=== PATIENT | female | born 1940 | race African-American/Black ===

== ENCOUNTER → 2020-06-25 | Outpatient (CLI) | payer MEDICARE ==
[2020-06-25 08:27] LABS: Basophils # (auto) 0 10 ^3/uL (0-0.2); Basophils % (auto) 1.1 % (0.0-2.0); Eosinophils # (auto) 0.1 10 ^3/uL (0-0.8); Eosinophils % (auto) 3.5 % (0.0-7.0); Hematocrit 36.9 % (36.0-46.0); Hemoglobin 12.6 g/dL (12.2-16.2); Lymphocytes # (auto) 1.2 10 ^3/uL (0.4-5.4); Lymphocytes % (auto) 32.6 % (10.0-50.0); Mean Corpuscular Hgb Conc. 34.2 g/dL (32.0-36.0); Mean Corpuscular Volume 84.8 fL (80.0-100.0); Monocytes # (auto) 0.2 10 ^3/uL (0-1.3); Monocytes % (auto) 6.3 % (0.0-12.0); Neutrophils # (auto) 2.1 10 ^3/uL (1.6-8.6); Neutrophils % (auto) 56.5 % (37.0-80.0); Nucleated Red Blood Cells % 0.2 %; Platelet Count (auto) 317 10^3/uL (140-450); Red Blood Cells 4.35 10^6/uL (4.0-5.20); Red Cell Distribution Width 13.9 % (11.8-14.3); White Blood Cell 3.8 10^3/uL (4.4-10.8)
[2020-06-25 08:34] LABS: Urine Bacteria MOD /hpf (None Seen); Urine Blood Negative /uL (Negative); Urine Hyaline Cast MOD /lpf (0 - 2); Urine WBC 135 /hpf (0 - 5); Urine WBC Clumps PRESENT /hpf (None Seen)
[2020-06-25 09:34] LABS: Potassium 4.2 mmol/L (3.5-5.1)
[2020-06-25 09:48] LABS: Albumin 2.9 g/dL (3.4-5.0); BUN/Creatinine Ratio 15.8; Bilirubin, Total 0.6 mg/dL (0.2-1.0); Calcium 8.8 mg/dL (8.5-10.1); Total Protein 7.4 g/dL (6.4-8.2)
[2020-06-25 09:56] LABS: Free T4 (Free Thyroxine) 0.94 ng/dL (0.89-1.76)
== END | disposition home or self-care (01) ==
LOC: LAB 07:57
PROVIDERS: ATTEND Internal Medicine
DX: E11.9 Type 2 diabetes mellitus without complications (principal); I10 Essential (primary) hypertension
CPT/HCPCS: 36415; 80053; 80061; 81001; 82043; 82607; 83036; 84439; 84443; 85025; 85652

== ENCOUNTER → 2020-07-14 | Outpatient (CLI) | payer MEDICARE ==
[2020-07-14 12:06] LABS: Urine Bacteria MANY /hpf (None Seen); Urine Blood Negative /uL (Negative); Urine Mucus FEW (None Seen); Urine Specific Gravity 1.022 (1.001-1.035); Urine WBC 259 /hpf (0 - 5)
== END | disposition home or self-care (01) ==
LOC: LAB 11:34
PROVIDERS: ATTEND Internal Medicine
DX: E11.9 Type 2 diabetes mellitus without complications (principal); N39.41 Urge incontinence
CPT/HCPCS: 81001

== ENCOUNTER → 2021-05-30 | Outpatient (CLI) | payer MEDICARE ==
[2021-05-30 09:02] LABS: Basophils # (auto) 0 10 ^3/uL (0-0.2); Basophils % (auto) 0.4 % (0.0-2.0); Eosinophils # (auto) 0.1 10 ^3/uL (0-0.8); Eosinophils % (auto) 1.7 % (0.0-7.0); Hematocrit 36.3 % (36.0-46.0); Lymphocytes # (auto) 0.9 10 ^3/uL (0.4-5.4); Lymphocytes % (auto) 27.2 % (10.0-50.0); Mean Corpuscular Hemoglobin 28.4 pg (28.0-32.0); Monocytes # (auto) 0.3 10 ^3/uL (0-1.3); Monocytes % (auto) 9.1 % (0.0-12.0); Neutrophils # (auto) 2.1 10 ^3/uL (1.6-8.6); Neutrophils % (auto) 61.6 % (37.0-80.0); Red Blood Cells 4.22 10^6/uL (4.0-5.20); Red Cell Distribution Width 14.2 % (11.8-14.3); White Blood Cell 3.3 10^3/uL (4.4-10.8)
[2021-05-30 09:23] LABS: Albumin 3.1 g/dL (3.4-5.0); Calcium 8.5 mg/dL (8.5-10.1); Potassium 4.6 mmol/L (3.5-5.1)
[2021-05-30 09:32] LABS: BUN/Creatinine Ratio 22.1; Bilirubin, Total 0.6 mg/dL (0.2-1.0); Total Protein 6.9 g/dL (6.4-8.2)
== END | disposition home or self-care (01) ==
LOC: LAB 08:23
PROVIDERS: ATTEND Internal Medicine
DX: E11.9 Type 2 diabetes mellitus without complications (principal); D72.819 Decreased white blood cell count, unspecified
CPT/HCPCS: 36415; 80053; 83036; 83615; 85025

== ENCOUNTER → 2021-09-23 | Outpatient (CLI) | payer MEDICARE ==
[2021-09-23 12:30] LABS: Basophils # (auto) 0 10 ^3/uL (0-0.2); Basophils % (auto) 0.7 % (0.0-2.0); Eosinophils # (auto) 0.2 10 ^3/uL (0-0.8); Eosinophils % (auto) 4.2 % (0.0-7.0); Hematocrit 33.7 % (36.0-46.0); Hemoglobin 11.4 g/dL (12.2-16.2); Lymphocytes # (auto) 1.3 10 ^3/uL (0.4-5.4); Lymphocytes % (auto) 34.3 % (10.0-50.0); Mean Corpuscular Hemoglobin 28.6 pg (28.0-32.0); Mean Corpuscular Volume 84.1 fL (80.0-100.0); Monocytes # (auto) 0.3 10 ^3/uL (0-1.3); Monocytes % (auto) 8.3 % (0.0-12.0); Neutrophils % (auto) 52.5 % (37.0-80.0); Nucleated Red Blood Cells % 0.1 %; Red Cell Distribution Width 13.9 % (11.8-14.3); White Blood Cell 3.8 10^3/uL (4.4-10.8)
[2021-09-23 13:09] LABS: Albumin 2.3 g/dL (3.4-5.0); BUN/Creatinine Ratio 13.6; Calcium 8.2 mg/dL (8.5-10.1); Potassium 3.3 mmol/L (3.5-5.1)
[2021-09-23 13:11] LABS: Bilirubin, Total 0.6 mg/dL (0.2-1.0)
[2021-09-23 13:20] LABS: Free T4 (Free Thyroxine) 1.06 ng/dL (0.89-1.76)
== END | disposition home or self-care (01) ==
LOC: LAB 12:04
PROVIDERS: ATTEND Internal Medicine
DX: E11.65 Type 2 diabetes mellitus with hyperglycemia (principal); I10 Essential (primary) hypertension
CPT/HCPCS: 36415; 80053; 80061; 82088; 82384; 82607; 83036; 84439; 84443; 85025; 85652

== ENCOUNTER 2022-04-28 22:40 | Inpatient (IN) | payer MEDICARE ==
[~2022-04-28] VITALS: Ht 162.6 cm; Wt 68.5 kg
[2022-04-29] MEDS ORDERED: ONDANSETRON ODT 4 MG TAB PO ONE (00:30)
[2022-04-29] MEDS ORDERED: HYDROcodone-ACET 5/325MG TAB PO ONE (00:30)
[2022-04-29] MEDS: SODIUM CHLORIDE 0.9% 1,000 ML IV SCH ×2 (00:30→05:04)
[2022-04-29] MEDS ORDERED: InsuLIN REG 1unit/0.01ml Soln (100units/ml) SC ONE (00:30)
[2022-04-29 02:21] LABS: Hemoglobin 10.4 g/dL (12.2-16.2); Mean Corpuscular Hemoglobin 28.3 pg (28.0-32.0); Mean Corpuscular Hgb Conc. 32.4 g/dL (32.0-36.0); Mean Corpuscular Volume 87.3 fL (80.0-100.0); Red Blood Cells 3.67 10^6/uL (4.0-5.20); Red Cell Distribution Width 16.1 % (11.8-14.3)
[2022-04-29 02:38] LABS: Albumin 2.4 g/dL (3.4-5.0); Calcium 8.4 mg/dL (8.5-10.1); Potassium 4.5 mmol/L (3.5-5.1)
[2022-04-29 02:41] LABS: Bilirubin, Total 0.6 mg/dL (0.2-1.0); Total Protein 6.3 g/dL (6.4-8.2)
[2022-04-29 02:53] LABS: Band Neutrophils % (manual) 0; Basophils % (manual) 0 (0.0-2.0); Blast Cells 0; Eosinophils % (manual) 0 (0-7); Metamyelocytes % 0; Myelocytes % 0; Promyelocytes % 0; Reactive Lymphocytes 0
[2022-04-29] MEDS ORDERED: DEXTROSE (50%) 50ML SYRG IV PRN (03:30)
[2022-04-29] MEDS ORDERED: DOCUSATE SOD 100 MG CAP PO PRN (03:30)
[2022-04-29] MEDS ORDERED: cefTRIAXone 1GM/50ML D5W 50 ML IV ONE (03:30)
[2022-04-29] MEDS ORDERED: NITROGLYCERIN 0.4 MG SL TAB SL PRN (03:30)
[2022-04-29] MEDS ORDERED: MORPHINE SULFATE INJ 2 MG/ml SYRG IV PRN (03:30)
[2022-04-29] MEDS ORDERED: ONDANSETRON HCL 4 MG/2 ML VIAL IV PRN (03:30)
[2022-04-29 03:52] LABS: INR 0.97 (0.9-1.15); Partial Thromboplastin Time 28.2 sec (24.6-33.4)
[2022-04-29 05:36] LABS: Lymphocytes % (manual) 70 (10.0-50.0); Monocytes % (manual) 2 (0-12)
[2022-04-29] MEDS: ACCU-CHEK COMFORT CURVE STRIP VI SCH ×3 (06:09→18:39)
[2022-04-29] MEDS: InsuLIN REG 1unit/0.01ml Soln (100units/ml) SC SCH ×3 (06:29→18:45)
[2022-04-29 08:09] LABS: Albumin 2.4 g/dL (3.4-5.0); Calcium 8.5 mg/dL (8.5-10.1); Potassium 4.2 mmol/L (3.5-5.1)
[2022-04-29 08:14] LABS: BUN/Creatinine Ratio 19.5; Bilirubin, Total 0.7 mg/dL (0.2-1.0); Total Protein 6.3 g/dL (6.4-8.2)
[2022-04-29] MEDS: HEPARIN DRIP/D5W 100UNITS/ML 250 ML IV SCH ×2 (09:56→19:17)
[2022-04-29] MEDS: HYDROcodone-ACET 5/325MG TAB PO PRN (10:34)
[2022-04-29] MEDS: FAMOTIDINE (10MG/ML) 2ML VL IV SCH (10:36)
[2022-04-29 11:07] LABS: Hematocrit 31.8 % (36.0-46.0); Hemoglobin 10.3 g/dL (12.2-16.2); Mean Corpuscular Hemoglobin 28.3 pg (28.0-32.0); Mean Corpuscular Hgb Conc. 32.5 g/dL (32.0-36.0); Mean Corpuscular Volume 87.1 fL (80.0-100.0); Red Blood Cells 3.66 10^6/uL (4.0-5.20); Red Cell Distribution Width 16.6 % (11.8-14.3)
[2022-04-29 11:13] LABS: Basophils % (manual) 0 (0.0-2.0); Blast Cells 0; Metamyelocytes % 0; Myelocytes % 0; Promyelocytes % 0; Reactive Lymphocytes 0
[2022-04-29 12:37] LABS: Band Neutrophils % (manual) 1; Eosinophils % (manual) 1 (0-7); Lymphocytes % (manual) 64 (10.0-50.0); Monocytes % (manual) 3 (0-12)
[2022-04-29] MEDS ORDERED: FERR1TAB36 PO (12:48)
[2022-04-29] MEDS ORDERED: ASPI-498 PO (12:58)
[2022-04-29] MEDS ORDERED: AML5T PO (12:58)
[2022-04-29] MEDS ORDERED: EMPA1TAB PO (12:58)
[2022-04-29] MEDS ORDERED: CLON0.2T PO (12:58)
[2022-04-29] MEDS ORDERED: ALLO100T PO (12:58)
[2022-04-29] MEDS ORDERED: ATOR20TA50 PO (12:58)
[2022-04-29] MEDS ORDERED: OMEP20TA PO (12:58)
[2022-04-29] MEDS ORDERED: HYDR25TA87 PO (13:00)
[2022-04-29 18:59] LABS: Partial Thromboplastin Time 34.2 sec (24.6-33.4)
[2022-04-29] MEDS ORDERED: HEPARIN SODIUM (PORCINE) 5000 UNITS/ML 1ML VIAL ONE (19:41)
[2022-04-29] MEDS ORDERED: HEPARIN SODIUM (PORCINE) 5000 UNITS/ML 1ML VIAL IV ONE (19:45)
[2022-04-30] VITALS (8 sets, daily range): BP systolic 110–195; BP diastolic 55–90
[2022-04-30] MEDS: ACCU-CHEK COMFORT CURVE STRIP VI SCH ×4 (00:35→18:23)
[2022-04-30] MEDS: HYDROcodone-ACET 5/325MG TAB PO PRN ×4 (00:50→22:07)
[2022-04-30] MEDS: InsuLIN REG 1unit/0.01ml Soln (100units/ml) SC SCH ×4 (00:54→18:24)
[2022-04-30 02:25] LABS: INR 1.04 (0.9-1.15); Partial Thromboplastin Time 38.2 sec (24.6-33.4)
[2022-04-30 09:39] LABS: Hematocrit 29.2 % (36.0-46.0); Hemoglobin 9.2 g/dL (12.2-16.2); Mean Corpuscular Hemoglobin 27.5 pg (28.0-32.0); Mean Corpuscular Hgb Conc. 31.4 g/dL (32.0-36.0); Mean Corpuscular Volume 87.6 fL (80.0-100.0); Red Blood Cells 3.33 10^6/uL (4.0-5.20); Red Cell Distribution Width 16.2 % (11.8-14.3); White Blood Cell 22.4 10^3/uL (4.4-10.8)
[2022-04-30 09:53] LABS: Band Neutrophils % (manual) 0; Basophils % (manual) 0 (0.0-2.0); Blast Cells 0; Eosinophils % (manual) 0 (0-7); Metamyelocytes % 0; Myelocytes % 0; Potassium 4.9 mmol/L (3.5-5.1); Promyelocytes % 0; Reactive Lymphocytes 0
[2022-04-30 10:00] LABS: Albumin 2.1 g/dL (3.4-5.0); Bilirubin, Total 0.9 mg/dL (0.2-1.0); Calcium 7.9 mg/dL (8.5-10.1); Total Protein 5.2 g/dL (6.4-8.2)
[2022-04-30] MEDS: FAMOTIDINE (10MG/ML) 2ML VL IV SCH (10:04)
[2022-04-30] MEDS: cefTRIAXone 1GM/50ML D5W 50 ML IV SCH (10:04)
[2022-04-30 10:33] LABS: Lymphocytes % (manual) 60 (10.0-50.0); Monocytes % (manual) 3 (0-12)
[2022-04-30 11:09] LABS: INR 1.07 (0.9-1.15)
[2022-04-30 11:13] LABS: Partial Thromboplastin Time 74.9 sec (24.6-33.4)
[2022-04-30] MEDS: SODIUM CHLORIDE 0.9% 1,000 ML IV SCH ×2 (11:43→18:37)
[2022-04-30] MEDS: HEPARIN DRIP/D5W 100UNITS/ML 250 ML IV SCH (11:53)
[2022-04-30] MEDS: INSULIN LANTUS (GLARGINE) 1 /0.01ml (100units/ml) SC SCH (12:16)
[2022-04-30] MEDS ORDERED: VANCOMYCIN PER PHARMACY 0 MG IV SCH (13:15)
[2022-04-30] MEDS: VANCOMYCIN 1GM/250ML 250 ML IV SCH (14:49)
[2022-04-30 18:21] LABS: INR 1.04 (0.9-1.15); Partial Thromboplastin Time 58.4 sec (24.6-33.4)
[2022-05-01] VITALS (8 sets, daily range): BP systolic 119–175; BP diastolic 63–100
[2022-05-01] MEDS: ACCU-CHEK COMFORT CURVE STRIP VI SCH ×5 (00:13→23:31)
[2022-05-01] MEDS: ACETAMINOPHEN 325 MG TAB PO PRN ×2 (00:14→21:38)
[2022-05-01] MEDS: InsuLIN REG 1unit/0.01ml Soln (100units/ml) SC SCH ×5 (00:32→23:31)
[2022-05-01] MEDS ORDERED: amLODIPine BESYLATE 5 MG TAB PO ONE (01:00)
[2022-05-01] MEDS: hydrALAZINE HCL 10 MG TAB PO PRN ×4 (01:37→21:37)
[2022-05-01] MEDS ORDERED: AMLO-496 PO (01:40)
[2022-05-01 01:46] LABS: INR 1.05 (0.9-1.15); Partial Thromboplastin Time 51.8 sec (24.6-33.4)
[2022-05-01] MEDS: VANCOMYCIN 1GM/250ML 250 ML IV SCH ×2 (02:09→14:43)
[2022-05-01] MEDS: SODIUM CHLORIDE 0.9% 1,000 ML IV SCH ×3 (02:46→18:13)
[2022-05-01] MEDS: HYDROcodone-ACET 5/325MG TAB PO PRN ×2 (06:40→14:51)
[2022-05-01] MEDS: FAMOTIDINE (10MG/ML) 2ML VL IV SCH (09:49)
[2022-05-01] MEDS: cefTRIAXone 1GM/50ML D5W 50 ML IV SCH (09:49)
[2022-05-01] MEDS: INSULIN LANTUS (GLARGINE) 1 /0.01ml (100units/ml) SC SCH (10:09)
[2022-05-01 13:46] LABS: Hematocrit 32.5 % (36.0-46.0); Hemoglobin 10.3 g/dL (12.2-16.2); Mean Corpuscular Hemoglobin 27.9 pg (28.0-32.0); Mean Corpuscular Hgb Conc. 31.6 g/dL (32.0-36.0); Mean Corpuscular Volume 88.1 fL (80.0-100.0); Red Blood Cells 3.69 10^6/uL (4.0-5.20); Red Cell Distribution Width 16.4 % (11.8-14.3); White Blood Cell 26.1 10^3/uL (4.4-10.8)
[2022-05-01 13:52] LABS: Band Neutrophils % (manual) 0; Basophils % (manual) 0 (0.0-2.0); Blast Cells 0; Eosinophils % (manual) 0 (0-7); Metamyelocytes % 0; Myelocytes % 0; Promyelocytes % 0; Reactive Lymphocytes 0
[2022-05-01 14:08] LABS: BUN/Creatinine Ratio 21.7; Calcium 8.5 mg/dL (8.5-10.1); Magnesium 2.5 mg/dL (1.6-2.6); Potassium 4.7 mmol/L (3.5-5.1)
[2022-05-01 15:25] LABS: Lymphocytes % (manual) 56 (10.0-50.0); Monocytes % (manual) 5 (0-12)
[2022-05-01] MEDS: HEPARIN DRIP/D5W 100UNITS/ML 250 ML IV SCH (17:58)
[2022-05-02] MEDS: HEPARIN DRIP/D5W 100UNITS/ML 250 ML IV SCH (01:43)
[2022-05-02] MEDS: VANCOMYCIN 1GM/250ML 250 ML IV SCH ×2 (02:00→11:58)
[2022-05-02] MEDS: HYDROcodone-ACET 5/325MG TAB PO PRN ×4 (02:18→23:29)
[2022-05-02] MEDS: SODIUM CHLORIDE 0.9% 1,000 ML IV SCH ×3 (02:45→17:44)
[2022-05-02] MEDS: ACCU-CHEK COMFORT CURVE STRIP VI SCH ×4 (05:49→23:01)
[2022-05-02] MEDS: InsuLIN REG 1unit/0.01ml Soln (100units/ml) SC SCH ×4 (05:54→23:01)
[2022-05-02 07:09] LABS: Hematocrit 29.4 % (36.0-46.0); Hemoglobin 9.1 g/dL (12.2-16.2); Mean Corpuscular Hemoglobin 27.9 pg (28.0-32.0); Mean Corpuscular Hgb Conc. 31.1 g/dL (32.0-36.0); Mean Corpuscular Volume 89.9 fL (80.0-100.0); Red Blood Cells 3.27 10^6/uL (4.0-5.20); Red Cell Distribution Width 16.8 % (11.8-14.3); White Blood Cell 28.4 10^3/uL (4.4-10.8)
[2022-05-02 07:12] LABS: Basophils % (manual) 0 (0.0-2.0); Blast Cells 0; Eosinophils % (manual) 0 (0-7); Metamyelocytes % 0; Myelocytes % 0; Promyelocytes % 0; Reactive Lymphocytes 0
[2022-05-02 07:13] LABS: INR 1.03 (0.9-1.15); Partial Thromboplastin Time 66.2 sec (24.6-33.4)
[2022-05-02 07:17] VITALS: BP 170/100
[2022-05-02 07:19] LABS: BUN/Creatinine Ratio 20.1; Calcium 7.9 mg/dL (8.5-10.1); Magnesium 2.4 mg/dL (1.6-2.6); Potassium 4.5 mmol/L (3.5-5.1)
[2022-05-02 08:00] VITALS: BP 170/100
[2022-05-02 09:26] VITALS: BP 180/81
[2022-05-02] MEDS ORDERED: amLODIPine BESYLATE 5 MG TAB PO SCH (10:00)
[2022-05-02] MEDS: FAMOTIDINE (10MG/ML) 2ML VL IV SCH (10:44)
[2022-05-02] MEDS: INSULIN LANTUS (GLARGINE) 1 /0.01ml (100units/ml) SC SCH (10:49)
[2022-05-02 12:55] VITALS: BP 181/86
[2022-05-02 13:58] LABS: Band Neutrophils % (manual) 4; Lymphocytes % (manual) 65 (10.0-50.0); Monocytes % (manual) 2 (0-12)
[2022-05-02] MEDS: hydrALAZINE HCL 10 MG TAB PO PRN (15:18)
[2022-05-02 16:53] VITALS: BP 180/85
[2022-05-02] MEDS: METOPROLOL TARTRATE 25 MG TAB PO SCH (21:38)
[2022-05-02] MEDS: ACETAMINOPHEN 325 MG TAB PO PRN (21:48)
[2022-05-02 22:00] VITALS: BP_SYST 150; BP_SYST 179; BP_DIAS 64; BP_DIAS 90
[2022-05-02] MEDS ORDERED: traZODone HCL 50 MG TAB PO SCH (22:00)
[2022-05-03] VITALS (7 sets, daily range): BP systolic 162–195; BP diastolic 69–100
[2022-05-03] MEDS: SODIUM CHLORIDE 0.9% 1,000 ML IV SCH (02:45)
[2022-05-03] MEDS: VANCOMYCIN 1GM/250ML 250 ML IV SCH (04:16)
[2022-05-03] MEDS: ACCU-CHEK COMFORT CURVE STRIP VI SCH ×3 (05:45→18:02)
[2022-05-03] MEDS: HYDROcodone-ACET 5/325MG TAB PO PRN ×3 (05:48→16:33)
[2022-05-03] MEDS: InsuLIN REG 1unit/0.01ml Soln (100units/ml) SC SCH ×3 (06:00→18:02)
[2022-05-03 06:41] LABS: Hematocrit 28.1 % (36.0-46.0); Mean Corpuscular Volume 87.7 fL (80.0-100.0); Red Blood Cells 3.21 10^6/uL (4.0-5.20); Red Cell Distribution Width 16.4 % (11.8-14.3)
[2022-05-03 06:53] LABS: INR 0.96 (0.9-1.15); Partial Thromboplastin Time 30.8 sec (24.6-33.4)
[2022-05-03 06:58] LABS: Potassium 4.7 mmol/L (3.5-5.1)
[2022-05-03] MEDS: hydrALAZINE HCL 10 MG TAB PO PRN ×2 (07:00→16:33)
[2022-05-03 07:04] LABS: BUN/Creatinine Ratio 19.4
[2022-05-03 07:38] LABS: White Blood Cell 34.1 10^3/uL (4.4-10.8)
[2022-05-03 07:40] LABS: Basophils % (manual) 0 (0.0-2.0); Blast Cells 0; Eosinophils % (manual) 0 (0-7); Metamyelocytes % 0; Myelocytes % 0; Promyelocytes % 0; Reactive Lymphocytes 0
[2022-05-03 08:24] LABS: Band Neutrophils % (manual) 3; Lymphocytes % (manual) 65 (10.0-50.0); Monocytes % (manual) 5 (0-12)
[2022-05-03] MEDS: FAMOTIDINE (10MG/ML) 2ML VL IV SCH (09:03)
[2022-05-03] MEDS: METOPROLOL TARTRATE 25 MG TAB PO SCH (09:05)
[2022-05-03] MEDS: INSULIN LANTUS (GLARGINE) 1 /0.01ml (100units/ml) SC SCH (09:10)
[2022-05-03] MEDS ORDERED: amLODIPine BESYLATE 5 MG TAB PO SCH (10:00)
[2022-05-03] MEDS ORDERED: HCTZ 25 MG TAB PO SCH (10:00)
[2022-05-03] MEDS ORDERED: LINE1TAB6 PO (11:25)
[2022-05-03] MEDS ORDERED: APIX5TAB PO ×2 (11:25)
[2022-05-03 11:28] LABS: Basophils # (auto) 0.1 10 ^3/uL (0-0.2); Eosinophils # (auto) 0.2 10 ^3/uL (0-0.8)
[2022-05-03 11:33] LABS: Basophils % (auto) 0.4 % (0.0-2.0); Eosinophils % (auto) 0.5 % (0.0-7.0); Hematocrit 27.8 % (36.0-46.0); Hemoglobin 8.9 g/dL (12.2-16.2); Lymphocytes # (auto) 19.8 10 ^3/uL (0.4-5.4); Mean Corpuscular Hemoglobin 28.2 pg (28.0-32.0); Mean Corpuscular Hgb Conc. 31.9 g/dL (32.0-36.0); Mean Corpuscular Volume 88.4 fL (80.0-100.0); Monocytes # (auto) 3.9 10 ^3/uL (0-1.3); Monocytes % (auto) 11.5 % (0.0-12.0); Neutrophils # (auto) 10.1 10 ^3/uL (1.6-8.6); Neutrophils % (auto) 29.5 % (37.0-80.0); Nucleated Red Blood Cells % 0.1 %; Red Blood Cells 3.14 10^6/uL (4.0-5.20); Red Cell Distribution Width 16.4 % (11.8-14.3)
[2022-05-03] MEDS: LINEZOLID 600MG TABLET PO SCH ×2 (11:46→19:35)
[2022-05-03 12:20] LABS: Lymphocytes % (auto) 58.1 % (10.0-50.0)
[2022-05-03 12:29] LABS: White Blood Cell 34.2 10^3/uL (4.4-10.8)
[2022-05-03] MEDS: APIXABAN 5 MG TAB PO SCH ×2 (13:40→19:35)
[2022-05-03] MEDS: predniSONE 5 MG TAB PO SCH ×2 (14:01→18:02)
[2022-05-03] MEDS ORDERED: diphenhdrAMINE HCL 50 MG/1 ML VL IV ONE (18:00)
== END 2022-05-03 21:00 | disposition home health service (06) | DRG 299 ==
LOC: ER 22:40 → TELE 04-29 03:28 → TELE-WESTW 04-29 22:30
PROVIDERS: ADMIT Nurse Practitioner Family; ATTEND Internal Medicine
DX: I82.A12 Acute embolism and thrombosis of left axillary vein (principal); G93.41 Metabolic encephalopathy; N17.0 Acute kidney failure with tubular necrosis; C84.10 Sezary disease, unspecified site; C91.10 Chronic lymphocytic leukemia of B-cell type not having achieved remission; E44.0 Moderate protein-calorie malnutrition; E88.09 Other disorders of plasma-protein metabolism, not elsewhere classified; E11.65 Type 2 diabetes mellitus with hyperglycemia; I10 Essential (primary) hypertension; Z20.822 Contact with and (suspected) exposure to COVID-19; I82.432 Acute embolism and thrombosis of left popliteal vein; Z68.25 Body mass index [BMI] 25.0-25.9, adult; Z88.8 Allergy status to other drugs, medicaments and biological substances; Z79.4 Long term (current) use of insulin
CPT/HCPCS: 36415; 71250; 74018; 74176; 80048; 80053; 80202; 82962; 83036; 83735; 83880; 85007; 85025; 85027; 85610; 85730; 87040; 87077; 87186; 87426; 93306; 93971; 96365; 96372; 96375; G0378; J0696; J1815; J3490; Q0162

== ENCOUNTER 2022-05-04 11:27 | Inpatient (IN) | payer MEDICARE, OTHER ==
[~2022-05-04] VITALS: Ht 162.6 cm; Wt 61.5 kg
[~2022-05-04 11:27] MED LIST: ALLO100T PO; AMLO-496 PO; APIX5TAB PO; ASPI-498 PO; ATOR20TA50 PO; CLON0.2T PO; EMPA1TAB PO; FERR1TAB36 PO; HYDR25TA87 PO; LINE1TAB6 PO; OMEP20TA PO
[2022-05-04] MEDS ORDERED: HYDROcodone-ACET 10/325MG TAB PO ONE (11:45)
[2022-05-04 13:24] LABS: Albumin 2.5 g/dL (3.4-5.0); Calcium 8.5 mg/dL (8.5-10.1); Hemoglobin 9.3 g/dL (12.2-16.2)
[2022-05-04 13:25] LABS: Hematocrit 29.2 % (36.0-46.0); Mean Corpuscular Hgb Conc. 31.9 g/dL (32.0-36.0); Mean Corpuscular Volume 87.6 fL (80.0-100.0); Red Blood Cells 3.34 10^6/uL (4.0-5.20); Red Cell Distribution Width 16.7 % (11.8-14.3)
[2022-05-04 13:29] LABS: BUN/Creatinine Ratio 20.4; Bilirubin, Total 0.8 mg/dL (0.2-1.0); Total Protein 6.4 g/dL (6.4-8.2)
[2022-05-04 13:42] LABS: White Blood Cell 36.7 10^3/uL (4.4-10.8)
[2022-05-04 13:43] LABS: Band Neutrophils % (manual) 0; Basophils % (manual) 0 (0.0-2.0); Blast Cells 0; Eosinophils % (manual) 0 (0-7); Myelocytes % 0; Promyelocytes % 0
[2022-05-04] MEDS ORDERED: SODIUM CHLORIDE 0.9% 1,000 ML IV ONE (14:00)
[2022-05-04 14:18] LABS: Lymphocytes % (manual) 43 (10.0-50.0); Metamyelocytes % 1; Monocytes % (manual) 6 (0-12); Reactive Lymphocytes 10
[2022-05-04 15:02] LABS: Lactic Acid w/Reflex 2.4 mmol/L (0.4-2.0)
[2022-05-04] MEDS ORDERED: levoFLOXacin 500MG 100 ML IV ONE (18:00)
[2022-05-04] MEDS ORDERED: SODIUM CHLORIDE 0.9% 500 ML IV ONE (18:00)
[2022-05-04] MEDS ORDERED: methylPREDNISolone SOD SUCC 125 MG/2 ML VL IV ONE (18:45)
[2022-05-04] MEDS: SODIUM CHLORIDE 0.9% 1,000 ML IV SCH (18:45)
[2022-05-04] MEDS ORDERED: levoFLOXacin 500MG 100 ML IV SCH (18:45)
[2022-05-04] MEDS ORDERED: diphenhdrAMINE HCL 50 MG/1 ML VL IV ONE ×2 (18:45→21:15)
[2022-05-04 19:36] LABS: Cholesterol 90 mg/dL (< 200)
[2022-05-04 19:38] LABS: HDL Cholesterol 24 mg/dL (40-59); LDL Cholesterol 40 mg/dL (< 100); Triglycerides 133 mg/dL (< 150)
[2022-05-04 19:42] LABS: % Iron Saturation 4.2 % (15-50)
[2022-05-04 19:47] LABS: Urine Amorphous Crystal FEW /hpf (None Seen); Urine Bacteria FEW /hpf (None Seen); Urine Blood 1+ /uL (Negative); Urine Hyaline Cast FEW /lpf (0 - 2); Urine Specific Gravity 1.014 (1.001-1.035); Urine WBC 15 /hpf (0 - 5)
[2022-05-04] MEDS ORDERED: IOHEXOL 350 MG/ML 100ML IJ ONE (20:28)
[2022-05-04] MEDS ORDERED: HEPARIN SODIUM (PORCINE) 5000 UNITS/ML 1ML VIAL SC SCH (22:00)
[2022-05-04] MEDS: methylPREDNISolone SOD SUCC 125 MG/2 ML VL IV SCH (22:18)
[2022-05-04] MEDS: ASCORBIC ACID 500 MG TAB PO SCH (22:20)
[2022-05-04] MEDS: ATORVASTATIN 20 MG TAB PO SCH (22:20)
[2022-05-04] MEDS: APIXABAN 5 MG TAB PO SCH (22:21)
[2022-05-04] MEDS: cloNIDine HCL 0.1 MG TAB PO SCH (22:38)
[2022-05-04] MEDS: hydrALAZINE HCL 25 MG TAB PO SCH (22:39)
[2022-05-05] VITALS (7 sets, daily range): BP systolic 124–178; BP diastolic 63–89
[2022-05-05] MEDS: LINEZOLID 600MG/300ML 300 ML IV SCH ×3 (01:09→22:12)
[2022-05-05] MEDS: cloNIDine HCL 0.1 MG TAB PO SCH ×3 (05:20→22:13)
[2022-05-05 06:43] LABS: Basophils # (auto) 0.1 10 ^3/uL (0-0.2); Basophils % (auto) 0.4 % (0.0-2.0); Eosinophils # (auto) 0 10 ^3/uL (0-0.8); Hematocrit 24.8 % (36.0-46.0); Hemoglobin 7.8 g/dL (12.2-16.2); Lymphocytes # (auto) 6.2 10 ^3/uL (0.4-5.4); Lymphocytes % (auto) 28.9 % (10.0-50.0); Mean Corpuscular Hemoglobin 28.1 pg (28.0-32.0); Mean Corpuscular Hgb Conc. 31.5 g/dL (32.0-36.0); Mean Corpuscular Volume 89.3 fL (80.0-100.0); Monocytes # (auto) 0.7 10 ^3/uL (0-1.3); Monocytes % (auto) 3.3 % (0.0-12.0); Neutrophils # (auto) 14.5 10 ^3/uL (1.6-8.6); Neutrophils % (auto) 67.4 % (37.0-80.0); Nucleated Red Blood Cells % 0.1 %; Red Blood Cells 2.77 10^6/uL (4.0-5.20); Red Cell Distribution Width 17.2 % (11.8-14.3); White Blood Cell 21.5 10^3/uL (4.4-10.8)
[2022-05-05 07:02] LABS: Albumin 1.9 g/dL (3.4-5.0)
[2022-05-05 07:05] LABS: BUN/Creatinine Ratio 26.3; Calcium 8.2 mg/dL (8.5-10.1)
[2022-05-05 07:07] LABS: Bilirubin, Total 0.6 mg/dL (0.2-1.0); Total Protein 5.1 g/dL (6.4-8.2)
[2022-05-05 07:27] LABS: Potassium 6.1 mmol/L (3.5-5.1)
[2022-05-05] MEDS: SODIUM CHLORIDE 0.9% 1,000 ML IV SCH (09:03)
[2022-05-05] MEDS: OMEPRAZOLE 40 MG PO SCH (10:00)
[2022-05-05] MEDS: FERROUS SULFATE 50 MG PO SCH (10:00)
[2022-05-05] MEDS: methylPREDNISolone SOD SUCC 125 MG/2 ML VL IV SCH ×2 (10:56→22:12)
[2022-05-05] MEDS: ASPirin-EC 81 mg tab PO SCH (10:57)
[2022-05-05] MEDS: APIXABAN 5 MG TAB PO SCH ×2 (10:57→22:13)
[2022-05-05] MEDS: ALLOPURINOL 100 MG TAB PO SCH (10:58)
[2022-05-05] MEDS: hydrALAZINE HCL 25 MG TAB PO SCH ×2 (10:58→22:14)
[2022-05-05] MEDS: MULTIPLE VITAMIN TAB PO SCH (10:58)
[2022-05-05] MEDS: ASCORBIC ACID 500 MG TAB PO SCH ×2 (10:58→22:13)
[2022-05-05] MEDS: ZINC SULFATE 220mg CAP or TAB PO SCH (11:00)
[2022-05-05] MEDS: HYDROcodone-ACET 5/325MG TAB PO PRN ×2 (11:21→23:54)
[2022-05-05] MEDS ORDERED: SODIUM BICARBONATE 50ML VIAL 150 ML in D5W 5% 1,000 ML IV SCH (11:30)
[2022-05-05] MEDS ORDERED: DEXTROSE (50%) 50ML SYRG IV ONE (11:30)
[2022-05-05] MEDS ORDERED: InsuLIN REG 1unit/0.01ml Soln (100units/ml) IV ONE (11:30)
[2022-05-05] MEDS ORDERED: CALCIUM GLUC 1,000mg/50ml-NS 50 ML IV ONE (11:30)
[2022-05-05] MEDS ORDERED: FUROSEMIDE 100 MG/10ML VIAL IV ONE (12:45)
[2022-05-05] MEDS: SODIUM ZIRCONIUM CYCL 10 GM PAK PO SCH ×3 (13:22→22:12)
[2022-05-05] MEDS ORDERED: InsuLIN REG 1unit/0.01ml Soln (100units/ml) SC SCH ×2 (13:41→22:00)
[2022-05-05] MEDS ORDERED: DEXTROSE (50%) 50ML SYRG IV PRN ×2 (13:45→17:30)
[2022-05-05] MEDS: ACCU-CHEK COMFORT CURVE STRIP VI SCH ×4 (14:08→22:15)
[2022-05-05] MEDS: InsuLIN REG 1unit/0.01ml Soln (100units/ml) SC SCH ×2 (17:46→23:42)
[2022-05-05] MEDS: amLODIPine BESYLATE 5 MG TAB PO SCH (17:48)
[2022-05-05] MEDS: ATORVASTATIN 20 MG TAB PO SCH (22:13)
[2022-05-05 22:47] LABS: Calcium 7.8 mg/dL (8.5-10.1); Potassium 4.7 mmol/L (3.5-5.1)
[2022-05-05 22:50] LABS: BUN/Creatinine Ratio 29.7
[2022-05-05] MEDS ORDERED: SODIUM BICARBONATE 50ML VIAL 100 ML in SOD CHL 0.45% 1,000 ML IV SCH (23:15)
[2022-05-06 05:00] VITALS: BP 126/55
[2022-05-06] MEDS: cloNIDine HCL 0.1 MG TAB PO SCH ×3 (06:00→21:49)
[2022-05-06] MEDS: SODIUM ZIRCONIUM CYCL 10 GM PAK PO SCH ×3 (06:24→21:48)
[2022-05-06] MEDS: InsuLIN REG 1unit/0.01ml Soln (100units/ml) SC SCH ×4 (06:26→21:54)
[2022-05-06] MEDS: ACCU-CHEK COMFORT CURVE STRIP VI SCH ×4 (06:26→22:22)
[2022-05-06 07:14] LABS: Calcium 8.1 mg/dL (8.5-10.1); Potassium 5.2 mmol/L (3.5-5.1)
[2022-05-06 07:18] LABS: BUN/Creatinine Ratio 32.8
[2022-05-06 09:00] VITALS: BP 124/61
[2022-05-06] MEDS: MULTIPLE VITAMIN TAB PO SCH (10:00)
[2022-05-06] MEDS: FERROUS SULFATE 50 MG PO SCH (10:00)
[2022-05-06] MEDS: OMEPRAZOLE 40 MG PO SCH (10:00)
[2022-05-06] MEDS ORDERED: FUROSEMIDE 40 MG/4 ML VIAL IV ONE (10:30)
[2022-05-06 10:57] LABS: Eosinophils # (auto) 0 10 ^3/uL (0-0.8); Hemoglobin 7.3 g/dL (12.2-16.2); Lymphocytes # (auto) 5.7 10 ^3/uL (0.4-5.4); Monocytes # (auto) 1.1 10 ^3/uL (0-1.3)
[2022-05-06 10:58] LABS: Basophils # (auto) 0.2 10 ^3/uL (0-0.2); Basophils % (auto) 0.7 % (0.0-2.0); Hematocrit 22.3 % (36.0-46.0); Lymphocytes % (auto) 24.2 % (10.0-50.0); Mean Corpuscular Hgb Conc. 32.6 g/dL (32.0-36.0); Mean Corpuscular Volume 85.8 fL (80.0-100.0); Monocytes % (auto) 4.4 % (0.0-12.0); Neutrophils # (auto) 16.7 10 ^3/uL (1.6-8.6); Neutrophils % (auto) 70.7 % (37.0-80.0); Red Blood Cells 2.59 10^6/uL (4.0-5.20); Red Cell Distribution Width 16.2 % (11.8-14.3); White Blood Cell 23.6 10^3/uL (4.4-10.8)
[2022-05-06] MEDS: LINEZOLID 600MG/300ML 300 ML IV SCH (11:35)
[2022-05-06] MEDS: methylPREDNISolone SOD SUCC 125 MG/2 ML VL IV SCH (11:36)
[2022-05-06] MEDS: HYDROcodone-ACET 5/325MG TAB PO PRN ×2 (11:37→22:29)
[2022-05-06] MEDS: APIXABAN 5 MG TAB PO SCH ×2 (11:37→21:50)
[2022-05-06] MEDS: ASPirin-EC 81 mg tab PO SCH (11:37)
[2022-05-06] MEDS: ASCORBIC ACID 500 MG TAB PO SCH ×2 (11:37→21:50)
[2022-05-06] MEDS: ZINC SULFATE 220mg CAP or TAB PO SCH (11:37)
[2022-05-06] MEDS: ALLOPURINOL 100 MG TAB PO SCH (11:38)
[2022-05-06] MEDS: hydrALAZINE HCL 25 MG TAB PO SCH ×2 (11:41→21:49)
[2022-05-06] MEDS: SODIUM BICARBONATE 50ML VIAL 75 ML in SOD CHL 0.45% 1,000 ML IV SCH ×2 (11:55→23:54)
[2022-05-06 13:00] VITALS: BP_SYST 130; BP_SYST 138; BP_DIAS 53; BP_DIAS 61
[2022-05-06] MEDS: diphenhdrAMINE HCL 50 MG/1 ML VL IV PRN (15:43)
[2022-05-06 16:40] VITALS: BP 138/53
[2022-05-06] MEDS: amLODIPine BESYLATE 5 MG TAB PO SCH (18:49)
[2022-05-06] MEDS: ATORVASTATIN 20 MG TAB PO SCH (21:50)
[2022-05-06 22:00] VITALS: BP 136/60
[2022-05-07 05:00] VITALS: BP 114/51
[2022-05-07] MEDS: SODIUM ZIRCONIUM CYCL 10 GM PAK PO SCH ×3 (06:16→21:49)
[2022-05-07] MEDS: ACCU-CHEK COMFORT CURVE STRIP VI SCH ×4 (06:17→21:50)
[2022-05-07] MEDS: cloNIDine HCL 0.1 MG TAB PO SCH ×3 (06:17→23:33)
[2022-05-07] MEDS: InsuLIN REG 1unit/0.01ml Soln (100units/ml) SC SCH ×4 (06:21→21:50)
[2022-05-07] MEDS: HYDROcodone-ACET 5/325MG TAB PO PRN ×3 (06:31→23:25)
[2022-05-07 06:47] LABS: Basophils # (auto) 0 10 ^3/uL (0-0.2); Basophils % (auto) 0.1 % (0.0-2.0); Eosinophils # (auto) 0 10 ^3/uL (0-0.8); Monocytes # (auto) 0.7 10 ^3/uL (0-1.3); Nucleated Red Blood Cells % 0.1 %
[2022-05-07 06:51] LABS: Hematocrit 23.3 % (36.0-46.0); Hemoglobin 7.6 g/dL (12.2-16.2); Lymphocytes # (auto) 6.5 10 ^3/uL (0.4-5.4); Lymphocytes % (auto) 27.1 % (10.0-50.0); Mean Corpuscular Hemoglobin 27.7 pg (28.0-32.0); Mean Corpuscular Hgb Conc. 32.5 g/dL (32.0-36.0); Mean Corpuscular Volume 85.4 fL (80.0-100.0); Monocytes % (auto) 2.9 % (0.0-12.0); Neutrophils # (auto) 16.8 10 ^3/uL (1.6-8.6); Neutrophils % (auto) 69.9 % (37.0-80.0); Red Blood Cells 2.72 10^6/uL (4.0-5.20); Red Cell Distribution Width 16.6 % (11.8-14.3)
[2022-05-07 07:06] LABS: BUN/Creatinine Ratio 35.8; Calcium 7.8 mg/dL (8.5-10.1); Potassium 3.9 mmol/L (3.5-5.1)
[2022-05-07 08:00] VITALS: BP 127/46
[2022-05-07] MEDS: ASCORBIC ACID 500 MG TAB PO SCH ×2 (11:32→21:49)
[2022-05-07] MEDS: ALLOPURINOL 100 MG TAB PO SCH (11:32)
[2022-05-07] MEDS: ZINC SULFATE 220mg CAP or TAB PO SCH (11:32)
[2022-05-07] MEDS: APIXABAN 5 MG TAB PO SCH ×2 (11:32→21:48)
[2022-05-07] MEDS: hydrALAZINE HCL 25 MG TAB PO SCH ×2 (11:32→21:47)
[2022-05-07] MEDS: MULTIPLE VITAMIN TAB PO SCH (11:33)
[2022-05-07] MEDS: ASPirin-EC 81 mg tab PO SCH (11:33)
[2022-05-07 11:49] VITALS: BP 137/64
[2022-05-07 16:00] VITALS: BP 153/76
[2022-05-07] MEDS: FERROUS SULFATE 50 MG PO SCH (16:15)
[2022-05-07] MEDS: OMEPRAZOLE 40 MG PO SCH (16:15)
[2022-05-07] MEDS: SODIUM CHLORIDE 0.9% 1,000 ML IV SCH (16:16)
[2022-05-07] MEDS: amLODIPine BESYLATE 5 MG TAB PO SCH (17:30)
[2022-05-07] MEDS: ATORVASTATIN 20 MG TAB PO SCH (21:48)
[2022-05-08] MEDS: SODIUM CHLORIDE 0.9% 1,000 ML IV SCH (04:53)
[2022-05-08 05:00] VITALS: BP 138/75
[2022-05-08] MEDS: cloNIDine HCL 0.1 MG TAB PO SCH ×3 (06:02→21:31)
[2022-05-08] MEDS: SODIUM ZIRCONIUM CYCL 10 GM PAK PO SCH ×2 (06:02→12:19)
[2022-05-08] MEDS: HYDROcodone-ACET 5/325MG TAB PO PRN ×2 (06:04→14:42)
[2022-05-08] MEDS: ACCU-CHEK COMFORT CURVE STRIP VI SCH ×4 (06:37→21:32)
[2022-05-08] MEDS: InsuLIN REG 1unit/0.01ml Soln (100units/ml) SC SCH ×4 (06:38→21:37)
[2022-05-08 07:05] LABS: Calcium 7.8 mg/dL (8.5-10.1); Potassium 3.3 mmol/L (3.5-5.1)
[2022-05-08 07:07] LABS: BUN/Creatinine Ratio 38.3
[2022-05-08 08:30] VITALS: BP 142/63
[2022-05-08] MEDS: ZINC SULFATE 220mg CAP or TAB PO SCH (11:04)
[2022-05-08] MEDS: FERROUS SULFATE 50 MG PO SCH (11:04)
[2022-05-08] MEDS: OMEPRAZOLE 40 MG PO SCH (11:04)
[2022-05-08] MEDS: APIXABAN 5 MG TAB PO SCH ×2 (11:05→21:31)
[2022-05-08] MEDS: MULTIPLE VITAMIN TAB PO SCH (11:05)
[2022-05-08] MEDS: hydrALAZINE HCL 25 MG TAB PO SCH ×2 (11:05→21:30)
[2022-05-08] MEDS: ASCORBIC ACID 500 MG TAB PO SCH ×2 (11:05→21:32)
[2022-05-08] MEDS: ASPirin-EC 81 mg tab PO SCH (11:05)
[2022-05-08] MEDS: ALLOPURINOL 100 MG TAB PO SCH (11:06)
[2022-05-08 12:30] VITALS: BP 162/67
[2022-05-08] MEDS ORDERED: DexAMETHasone SOD PHOS 10MG/1ML VIAL INJ IV ONE (15:15)
[2022-05-08 17:00] VITALS: BP 152/74
[2022-05-08] MEDS: amLODIPine BESYLATE 5 MG TAB PO SCH (17:45)
[2022-05-08 20:00] VITALS: BP 153/89
[2022-05-08] MEDS: ATORVASTATIN 20 MG TAB PO SCH (21:32)
[2022-05-08 22:00] VITALS: BP 162/75
[2022-05-09 05:00] VITALS: BP 151/61
[2022-05-09] MEDS: cloNIDine HCL 0.1 MG TAB PO SCH ×3 (05:25→22:51)
[2022-05-09 05:56] LABS: BUN/Creatinine Ratio 39.3; Calcium 7.7 mg/dL (8.5-10.1); Potassium 3.5 mmol/L (3.5-5.1)
[2022-05-09] MEDS: ACCU-CHEK COMFORT CURVE STRIP VI SCH ×4 (06:18→22:52)
[2022-05-09] MEDS: InsuLIN REG 1unit/0.01ml Soln (100units/ml) SC SCH ×4 (06:24→22:47)
[2022-05-09 08:13] LABS: Folate (Folic Acid) 15.78 ng/mL (5.38-24)
[2022-05-09 09:00] VITALS: BP 150/72
[2022-05-09] MEDS: DexAMETHasone SOD PHOS 10MG/1ML VIAL INJ IV SCH (10:34)
[2022-05-09] MEDS: APIXABAN 5 MG TAB PO SCH ×2 (10:34→22:51)
[2022-05-09] MEDS: ASPirin-EC 81 mg tab PO SCH (10:34)
[2022-05-09] MEDS: hydrALAZINE HCL 25 MG TAB PO SCH ×2 (10:35→22:50)
[2022-05-09] MEDS: ZINC SULFATE 220mg CAP or TAB PO SCH (10:35)
[2022-05-09] MEDS: ASCORBIC ACID 500 MG TAB PO SCH ×2 (10:35→22:49)
[2022-05-09] MEDS: ALLOPURINOL 100 MG TAB PO SCH (10:35)
[2022-05-09] MEDS: MULTIPLE VITAMIN TAB PO SCH (10:35)
[2022-05-09] MEDS: FERROUS SULFATE 50 MG PO SCH (10:35)
[2022-05-09] MEDS: OMEPRAZOLE 40 MG PO SCH (10:36)
[2022-05-09 13:00] VITALS: BP 150/74
[2022-05-09] MEDS: HYDROcodone-ACET 5/325MG TAB PO PRN ×2 (13:00→22:51)
[2022-05-09] MEDS: AZITHROMYCIN 500MG/ 250ML 250 ML IV SCH (13:35)
[2022-05-09] MEDS ORDERED: POLYETHYLENE GLYCOL 17 GM PWDR PO PRN (14:00)
[2022-05-09] MEDS: cefTRIAXone 1GM/50ML D5W 50 ML IV SCH (16:09)
[2022-05-09 16:57] VITALS: BP 131/63
[2022-05-09] MEDS: amLODIPine BESYLATE 5 MG TAB PO SCH (18:20)
[2022-05-09 22:00] VITALS: BP 146/65
[2022-05-09] MEDS: DOCUSATE SOD 100 MG CAP PO SCH (22:49)
[2022-05-09] MEDS: ATORVASTATIN 20 MG TAB PO SCH (22:51)
[2022-05-10] MEDS: HYDROcodone-ACET 5/325MG TAB PO PRN ×3 (03:54→23:27)
[2022-05-10 05:00] VITALS: BP 154/67
[2022-05-10 06:03] LABS: BUN/Creatinine Ratio 47.3; Potassium 3.6 mmol/L (3.5-5.1)
[2022-05-10] MEDS: cloNIDine HCL 0.1 MG TAB PO SCH ×3 (06:07→21:19)
[2022-05-10] MEDS: InsuLIN REG 1unit/0.01ml Soln (100units/ml) SC SCH ×4 (06:38→21:22)
[2022-05-10] MEDS: ACCU-CHEK COMFORT CURVE STRIP VI SCH ×4 (06:39→21:20)
[2022-05-10 09:00] VITALS: BP 150/63
[2022-05-10] MEDS: ZINC SULFATE 220mg CAP or TAB PO SCH (09:32)
[2022-05-10] MEDS: OMEPRAZOLE 40 MG PO SCH (09:32)
[2022-05-10] MEDS: cefTRIAXone 1GM/50ML D5W 50 ML IV SCH (09:32)
[2022-05-10] MEDS: FERROUS SULFATE 50 MG PO SCH (09:32)
[2022-05-10] MEDS: DexAMETHasone SOD PHOS 10MG/1ML VIAL INJ IV SCH (09:32)
[2022-05-10] MEDS: AZITHROMYCIN 500MG/ 250ML 250 ML IV SCH (09:32)
[2022-05-10] MEDS: DOCUSATE SOD 100 MG CAP PO SCH ×2 (09:33→21:18)
[2022-05-10] MEDS: ASPirin-EC 81 mg tab PO SCH (09:33)
[2022-05-10] MEDS: hydrALAZINE HCL 25 MG TAB PO SCH ×2 (09:33→21:20)
[2022-05-10] MEDS: APIXABAN 5 MG TAB PO SCH ×2 (09:33→21:18)
[2022-05-10] MEDS: ALLOPURINOL 100 MG TAB PO SCH (09:34)
[2022-05-10] MEDS: MULTIPLE VITAMIN TAB PO SCH (09:34)
[2022-05-10] MEDS: ASCORBIC ACID 500 MG TAB PO SCH ×2 (09:34→21:18)
[2022-05-10] MEDS ORDERED: MAALOX PLUS or MAALOX 30 ML PO ONE (12:45)
[2022-05-10] MEDS ORDERED: PANTOPRAZOLE 40 MG TAB PO ONE (12:45)
[2022-05-10 13:00] VITALS: BP 186/75
[2022-05-10 17:00] VITALS: BP 193/93
[2022-05-10] MEDS: amLODIPine BESYLATE 5 MG TAB PO SCH (18:10)
[2022-05-10] MEDS: hydrALAZINE HCL 20 MG/ML VL IV PRN (18:41)
[2022-05-10] MEDS: ATORVASTATIN 20 MG TAB PO SCH (21:18)
[2022-05-10 22:00] VITALS: BP 158/74
[2022-05-11 05:00] VITALS: BP 154/71
[2022-05-11 05:44] LABS: Potassium 3.5 mmol/L (3.5-5.1)
[2022-05-11 05:48] LABS: BUN/Creatinine Ratio 44.6; Calcium 8.4 mg/dL (8.5-10.1)
[2022-05-11] MEDS: cloNIDine HCL 0.1 MG TAB PO SCH ×3 (06:42→22:40)
[2022-05-11] MEDS: InsuLIN REG 1unit/0.01ml Soln (100units/ml) SC SCH ×4 (06:44→22:43)
[2022-05-11] MEDS: ACCU-CHEK COMFORT CURVE STRIP VI SCH ×4 (06:45→22:45)
[2022-05-11 09:00] VITALS: BP 170/82
[2022-05-11] MEDS: AZITHROMYCIN 500MG/ 250ML 250 ML IV SCH (09:37)
[2022-05-11] MEDS: cefTRIAXone 1GM/50ML D5W 50 ML IV SCH (09:37)
[2022-05-11] MEDS: hydrALAZINE HCL 25 MG TAB PO SCH ×2 (09:38→22:41)
[2022-05-11] MEDS: DexAMETHasone SOD PHOS 10MG/1ML VIAL INJ IV SCH (09:38)
[2022-05-11] MEDS: APIXABAN 5 MG TAB PO SCH (09:38)
[2022-05-11] MEDS: ZINC SULFATE 220mg CAP or TAB PO SCH (09:38)
[2022-05-11] MEDS: ASCORBIC ACID 500 MG TAB PO SCH ×2 (09:38→22:41)
[2022-05-11] MEDS: DOCUSATE SOD 100 MG CAP PO SCH ×2 (09:39→22:40)
[2022-05-11] MEDS: ALLOPURINOL 100 MG TAB PO SCH (09:39)
[2022-05-11] MEDS: ASPirin-EC 81 mg tab PO SCH (09:39)
[2022-05-11] MEDS: PANTOPRAZOLE 40 MG TAB PO SCH (09:39)
[2022-05-11] MEDS: MULTIPLE VITAMIN TAB PO SCH (09:40)
[2022-05-11] MEDS: FERROUS SULFATE 50 MG PO SCH (09:40)
[2022-05-11 13:00] VITALS: BP 156/117
[2022-05-11 17:00] VITALS: BP 151/76
[2022-05-11] MEDS: amLODIPine BESYLATE 5 MG TAB PO SCH (18:54)
[2022-05-11 19:40] VITALS: BP 144/89
[2022-05-11 22:09] VITALS: BP 144/89
[2022-05-11] MEDS: HYDROcodone-ACET 5/325MG TAB PO PRN (22:38)
[2022-05-11] MEDS: ATORVASTATIN 20 MG TAB PO SCH (22:40)
[2022-05-12] MEDS: HYDROcodone-ACET 5/325MG TAB PO PRN ×2 (03:39→20:16)
[2022-05-12 05:22] VITALS: BP 161/70
[2022-05-12] MEDS: cloNIDine HCL 0.1 MG TAB PO SCH ×3 (06:36→21:21)
[2022-05-12] MEDS: InsuLIN REG 1unit/0.01ml Soln (100units/ml) SC SCH ×4 (06:40→21:31)
[2022-05-12] MEDS: ACCU-CHEK COMFORT CURVE STRIP VI SCH ×4 (06:41→21:22)
[2022-05-12 07:02] LABS: Calcium 8.5 mg/dL (8.5-10.1); Potassium 3.9 mmol/L (3.5-5.1)
[2022-05-12 07:05] LABS: BUN/Creatinine Ratio 51.6
[2022-05-12 09:00] VITALS: BP 160/68
[2022-05-12 13:00] VITALS: BP 157/76
[2022-05-12] MEDS: AZITHROMYCIN 500MG/ 250ML 250 ML IV SCH (13:01)
[2022-05-12] MEDS: cefTRIAXone 1GM/50ML D5W 50 ML IV SCH (13:01)
[2022-05-12] MEDS: DexAMETHasone SOD PHOS 10MG/1ML VIAL INJ IV SCH (13:02)
[2022-05-12] MEDS: ALLOPURINOL 100 MG TAB PO SCH (13:02)
[2022-05-12] MEDS: hydrALAZINE HCL 25 MG TAB PO SCH ×2 (13:02→21:20)
[2022-05-12] MEDS: ZINC SULFATE 220mg CAP or TAB PO SCH (13:02)
[2022-05-12] MEDS: ASCORBIC ACID 500 MG TAB PO SCH ×2 (13:03→21:22)
[2022-05-12] MEDS: PANTOPRAZOLE 40 MG TAB PO SCH (13:03)
[2022-05-12] MEDS: MULTIPLE VITAMIN TAB PO SCH (13:03)
[2022-05-12] MEDS: ASPirin-EC 81 mg tab PO SCH (13:03)
[2022-05-12] MEDS: DOCUSATE SOD 100 MG CAP PO SCH ×2 (13:04→21:22)
[2022-05-12] MEDS: FERROUS SULFATE 50 MG PO SCH (13:04)
[2022-05-12 17:00] VITALS: BP 165/58
[2022-05-12 17:57] LABS: Lactic Acid w/Reflex 2.7 mmol/L (0.4-2.0)
[2022-05-12] MEDS: amLODIPine BESYLATE 5 MG TAB PO SCH (18:07)
[2022-05-12] MEDS: ATORVASTATIN 20 MG TAB PO SCH (21:21)
[2022-05-12 22:00] VITALS: BP 152/71
[2022-05-13] VITALS (10 sets, daily range): BP systolic 152–163; BP diastolic 72–84
[2022-05-13] MEDS: cloNIDine HCL 0.1 MG TAB PO SCH ×3 (05:08→22:20)
[2022-05-13] MEDS: HYDROcodone-ACET 5/325MG TAB PO PRN (06:13)
[2022-05-13 06:18] LABS: Calcium 8.1 mg/dL (8.5-10.1)
[2022-05-13 06:21] LABS: BUN/Creatinine Ratio 52.9
[2022-05-13] MEDS: ACCU-CHEK COMFORT CURVE STRIP VI SCH ×4 (06:32→22:19)
[2022-05-13] MEDS: InsuLIN REG 1unit/0.01ml Soln (100units/ml) SC SCH ×4 (06:35→22:48)
[2022-05-13 06:44] LABS: Hematocrit 18.1 % (36.0-46.0); Mean Corpuscular Hemoglobin 30.3 pg (28.0-32.0); Mean Corpuscular Hgb Conc. 33.3 g/dL (32.0-36.0); Mean Corpuscular Volume 91.1 fL (80.0-100.0); Red Blood Cells 1.99 10^6/uL (4.0-5.20); Red Cell Distribution Width 16.5 % (11.8-14.3)
[2022-05-13] MEDS: hydrALAZINE HCL 20 MG/ML VL IV PRN ×2 (06:51→23:38)
[2022-05-13 07:23] LABS: White Blood Cell 32.1 10^3/uL (4.4-10.8)
[2022-05-13 07:25] LABS: Basophils % (manual) 0 (0.0-2.0); Blast Cells 0; Eosinophils % (manual) 0 (0-7); Metamyelocytes % 0; Myelocytes % 0; Promyelocytes % 0; Reactive Lymphocytes 0
[2022-05-13] MEDS: ALBUTEROL SULF HFA 90MCG INH 200DOSE IN SCH ×2 (07:51→13:43)
[2022-05-13] MEDS: cefTRIAXone 1GM/50ML D5W 50 ML IV SCH (09:08)
[2022-05-13] MEDS: MULTIPLE VITAMIN TAB PO SCH (09:53)
[2022-05-13] MEDS: ZINC SULFATE 220mg CAP or TAB PO SCH (09:53)
[2022-05-13] MEDS: PANTOPRAZOLE 40 MG TAB PO SCH (09:53)
[2022-05-13] MEDS: ASCORBIC ACID 500 MG TAB PO SCH ×2 (09:53→22:23)
[2022-05-13] MEDS: ASPirin-EC 81 mg tab PO SCH (09:53)
[2022-05-13] MEDS: ALLOPURINOL 100 MG TAB PO SCH (09:53)
[2022-05-13] MEDS: DexAMETHasone SOD PHOS 10MG/1ML VIAL INJ IV SCH ×2 (09:53→11:40)
[2022-05-13] MEDS: DOCUSATE SOD 100 MG CAP PO SCH ×2 (09:53→22:23)
[2022-05-13] MEDS: hydrALAZINE HCL 25 MG TAB PO SCH ×2 (09:54→22:21)
[2022-05-13] MEDS: FERROUS SULFATE 50 MG PO SCH (10:00)
[2022-05-13 13:48] LABS: Band Neutrophils % (manual) 6; Lymphocytes % (manual) 51 (10.0-50.0); Monocytes % (manual) 1 (0-12)
[2022-05-13] MEDS ORDERED: FUROSEMIDE 40 MG/4 ML VIAL IV ONE (14:30)
[2022-05-13] MEDS: LORazepam 2MG/ML-1ML VIAL IV PRN (14:42)
[2022-05-13 15:00] LABS: Hematocrit 25.8 % (36.0-46.0); Hemoglobin 7.7 g/dL (12.2-16.2); Mean Corpuscular Hgb Conc. 29.9 g/dL (32.0-36.0); Mean Corpuscular Volume 93.5 fL (80.0-100.0); Red Blood Cells 2.76 10^6/uL (4.0-5.20); Red Cell Distribution Width 16.7 % (11.8-14.3)
[2022-05-13 15:07] LABS: White Blood Cell 34.3 10^3/uL (4.4-10.8)
[2022-05-13 15:09] LABS: Band Neutrophils % (manual) 0; Basophils % (manual) 0 (0.0-2.0); Blast Cells 0; Eosinophils % (manual) 0 (0-7); Metamyelocytes % 0; Myelocytes % 0; Promyelocytes % 0; Reactive Lymphocytes 0
[2022-05-13] MEDS ORDERED: VANCOMYCIN PER PHARMACY 0 MG IV SCH (15:45)
[2022-05-13] MEDS ORDERED: VANCOMYCIN 1GM/250ML 250 ML IV ONE (16:00)
[2022-05-13 16:02] LABS: Lymphocytes % (manual) 38 (10.0-50.0); Monocytes % (manual) 2 (0-12)
[2022-05-13] MEDS: amLODIPine BESYLATE 5 MG TAB PO SCH (17:30)
[2022-05-13] MEDS ORDERED: PIPERACILLIN-TAZOB 3.375GM 100 ML IV ONE (18:00)
[2022-05-13] MEDS: CEFEPIME 2 GM in SODIUM CHL 0.9% 50 ML IV SCH (20:46)
[2022-05-13] MEDS: ATORVASTATIN 20 MG TAB PO SCH (22:23)
[2022-05-13] MEDS ORDERED: CEFEPIME 2 GM in SODIUM CHL 0.9% 50 ML IV SCH (23:55)
[2022-05-14] VITALS (29 sets, daily range): BP systolic 132–194; BP diastolic 59–80
[2022-05-14] MEDS ORDERED: PIPERACILLIN-TAZOB 3.375GM 100 ML IV SCH (02:00)
[2022-05-14 05:49] LABS: Hemoglobin 7.2 g/dL (12.2-16.2); Mean Corpuscular Hemoglobin 30.1 pg (28.0-32.0); Mean Corpuscular Hgb Conc. 34.2 g/dL (32.0-36.0); Mean Corpuscular Volume 87.8 fL (80.0-100.0); Red Blood Cells 2.39 10^6/uL (4.0-5.20); Red Cell Distribution Width 15.9 % (11.8-14.3)
[2022-05-14 05:58] LABS: Potassium 4.4 mmol/L (3.5-5.1)
[2022-05-14] MEDS: ALBUTEROL SULF HFA 90MCG INH 200DOSE IN SCH ×4 (06:00→22:00)
[2022-05-14] MEDS: cloNIDine HCL 0.1 MG TAB PO SCH ×4 (06:00→22:00)
[2022-05-14 06:06] LABS: BUN/Creatinine Ratio 56.7; Bilirubin, Total 0.6 mg/dL (0.2-1.0); Calcium 8.1 mg/dL (8.5-10.1); Total Protein 5.5 g/dL (6.4-8.2)
[2022-05-14 06:17] LABS: White Blood Cell 31.9 10^3/uL (4.4-10.8)
[2022-05-14 06:28] LABS: Band Neutrophils % (manual) 0; Basophils % (manual) 0 (0.0-2.0); Eosinophils % (manual) 0 (0-7); Metamyelocytes % 0; Myelocytes % 0
[2022-05-14 06:29] LABS: Blast Cells 0; Promyelocytes % 0; Reactive Lymphocytes 0
[2022-05-14 06:43] LABS: Lymphocytes % (manual) 22 (10.0-50.0); Monocytes % (manual) 2 (0-12)
[2022-05-14] MEDS: InsuLIN REG 1unit/0.01ml Soln (100units/ml) SC SCH ×3 (07:00→18:01)
[2022-05-14] MEDS: ACCU-CHEK COMFORT CURVE STRIP VI SCH ×3 (07:00→17:47)
[2022-05-14] MEDS: CEFEPIME 2 GM in SODIUM CHL 0.9% 50 ML IV SCH ×2 (07:00→22:56)
[2022-05-14] MEDS ORDERED: CEFEPIME 2 GM in SODIUM CHL 0.9% 50 ML IV SCH (10:00)
[2022-05-14] MEDS: FERROUS SULFATE 50 MG PO SCH (10:00)
[2022-05-14] MEDS ORDERED: VANCOMYCIN 1GM/250ML 250 ML IV ONE (10:00)
[2022-05-14] MEDS: DOCUSATE SOD 100 MG CAP PO SCH ×2 (10:26→22:00)
[2022-05-14] MEDS: DexAMETHasone SOD PHOS 10MG/1ML VIAL INJ IV SCH (10:26)
[2022-05-14] MEDS: ZINC SULFATE 220mg CAP or TAB PO SCH (10:27)
[2022-05-14] MEDS: hydrALAZINE HCL 25 MG TAB PO SCH ×2 (10:27→22:00)
[2022-05-14] MEDS: ALLOPURINOL 100 MG TAB PO SCH (10:27)
[2022-05-14] MEDS: ASPirin-EC 81 mg tab PO SCH (10:27)
[2022-05-14] MEDS: MULTIPLE VITAMIN TAB PO SCH (10:27)
[2022-05-14] MEDS: ASCORBIC ACID 500 MG TAB PO SCH ×2 (10:27→22:00)
[2022-05-14] MEDS: PANTOPRAZOLE 40 MG TAB PO SCH (10:27)
[2022-05-14] MEDS: LORazepam 2MG/ML-1ML VIAL IV PRN (11:02)
[2022-05-14] MEDS: hydrALAZINE HCL 20 MG/ML VL IV PRN (12:36)
[2022-05-14] MEDS: amLODIPine BESYLATE 5 MG TAB PO SCH (18:02)
[2022-05-14] MEDS: FUROSEMIDE 40 MG/4 ML VIAL IV SCH (18:45)
[2022-05-14] MEDS: ATORVASTATIN 20 MG TAB PO SCH (22:00)
[2022-05-14] MEDS ORDERED: ENOXAPARIN SOD 80 MG/0.8ML SYRINGE SC SCH (22:00)
[2022-05-15] VITALS (33 sets, daily range): BP systolic 121–170; BP diastolic 59–80
[2022-05-15] MEDS: ACCU-CHEK COMFORT CURVE STRIP VI SCH ×5 (00:36→22:00)
[2022-05-15] MEDS: LORazepam 2MG/ML-1ML VIAL IV PRN ×3 (00:38→19:34)
[2022-05-15] MEDS: hydrALAZINE HCL 20 MG/ML VL IV PRN ×2 (00:38→09:11)
[2022-05-15] MEDS: InsuLIN REG 1unit/0.01ml Soln (100units/ml) SC SCH ×5 (00:42→22:00)
[2022-05-15 05:24] LABS: BUN/Creatinine Ratio 49.3; Potassium 4.4 mmol/L (3.5-5.1)
[2022-05-15] MEDS: cloNIDine HCL 0.1 MG TAB PO SCH (06:00)
[2022-05-15 06:24] LABS: Hemoglobin 7.8 g/dL (12.2-16.2)
[2022-05-15 06:26] LABS: Hematocrit 23.6 % (36.0-46.0); Mean Corpuscular Hemoglobin 29.2 pg (28.0-32.0); Mean Corpuscular Volume 88.3 fL (80.0-100.0); Red Blood Cells 2.67 10^6/uL (4.0-5.20); Red Cell Distribution Width 15.5 % (11.8-14.3)
[2022-05-15] MEDS: FUROSEMIDE 40 MG/4 ML VIAL IV SCH ×2 (06:46→18:04)
[2022-05-15] MEDS: CEFEPIME 2 GM in SODIUM CHL 0.9% 50 ML IV SCH ×2 (06:48→23:00)
[2022-05-15 07:06] LABS: White Blood Cell 31.6 10^3/uL (4.4-10.8)
[2022-05-15 07:07] LABS: Band Neutrophils % (manual) 0; Basophils % (manual) 0 (0.0-2.0); Blast Cells 0; Eosinophils % (manual) 0 (0-7); Metamyelocytes % 0; Promyelocytes % 0; Reactive Lymphocytes 0
[2022-05-15] MEDS: ALBUTEROL SULF HFA 90MCG INH 200DOSE IN SCH ×3 (07:32→18:26)
[2022-05-15] MEDS ORDERED: HEPARIN DRIP/D5W 100UNITS/ML 250 ML IV SCH ×2 (09:00→12:15)
[2022-05-15] MEDS ORDERED: HEPARIN SODIUM (PORCINE) 5000 UNITS/ML 1ML VIAL IV ONE (09:00)
[2022-05-15] MEDS: DexAMETHasone SOD PHOS 10MG/1ML VIAL INJ IV SCH (09:10)
[2022-05-15 09:11] LABS: Lymphocytes % (manual) 45 (10.0-50.0); Monocytes % (manual) 2 (0-12); Myelocytes % 1
[2022-05-15] MEDS: FERROUS SULFATE 50 MG PO SCH (09:11)
[2022-05-15] MEDS: ZINC SULFATE 220mg CAP or TAB PO SCH (09:11)
[2022-05-15] MEDS: MULTIPLE VITAMIN TAB PO SCH (09:12)
[2022-05-15] MEDS: hydrALAZINE HCL 25 MG TAB PO SCH ×2 (09:12→21:54)
[2022-05-15] MEDS: PANTOPRAZOLE 40 MG TAB PO SCH (09:12)
[2022-05-15] MEDS: ASPirin-EC 81 mg tab PO SCH (09:12)
[2022-05-15] MEDS: DOCUSATE SOD 100 MG CAP PO SCH ×2 (09:12→21:54)
[2022-05-15] MEDS: ASCORBIC ACID 500 MG TAB PO SCH ×2 (09:13→21:57)
[2022-05-15] MEDS: ALLOPURINOL 100 MG TAB PO SCH (09:13)
[2022-05-15] MEDS ORDERED: DexAMETHasone SOD PHOS 10MG/1ML VIAL INJ IV SCH (10:00)
[2022-05-15 12:42] LABS: INR 1.22 (0.9-1.15); Partial Thromboplastin Time 30.7 sec (24.6-33.4)
[2022-05-15] MEDS ORDERED: cloNIDine 0.2 mg/24hr 7DAY PATCH TD SCH (12:45)
[2022-05-15] MEDS ORDERED: VANCOMYCIN 500 MG in D5W 5% 100 ML IV ONE (14:00)
[2022-05-15] MEDS: amLODIPine BESYLATE 5 MG TAB PO SCH (17:30)
[2022-05-15] MEDS ORDERED: VANCOMYCIN 1 GM/250 ML IV ONE (21:00)
[2022-05-15 21:15] LABS: INR 1.27 (0.9-1.15)
[2022-05-15 21:42] LABS: Partial Thromboplastin Time 110.8 sec (24.6-33.4)
[2022-05-15] MEDS: SODIUM CHLOR 0.9% PF (SALINE LOCK) 10ML VIAL/SYR IV SCH (22:00)
[2022-05-16] VITALS (27 sets, daily range): BP systolic 135–190; BP diastolic 54–97
[2022-05-16] MEDS: hydrALAZINE HCL 20 MG/ML VL IV PRN ×2 (01:07→15:54)
[2022-05-16] MEDS: LORazepam 2MG/ML-1ML VIAL IV PRN (01:07)
[2022-05-16 02:59] LABS: INR 1.31 (0.9-1.15)
[2022-05-16 03:27] LABS: Partial Thromboplastin Time 127.9 sec (24.6-33.4)
[2022-05-16] MEDS: FUROSEMIDE 40 MG/4 ML VIAL IV SCH (06:00)
[2022-05-16] MEDS: CEFEPIME 2 GM in SODIUM CHL 0.9% 50 ML IV SCH ×2 (06:16→22:56)
[2022-05-16] MEDS: InsuLIN REG 1unit/0.01ml Soln (100units/ml) SC SCH ×4 (07:00→23:13)
[2022-05-16] MEDS: ACCU-CHEK COMFORT CURVE STRIP VI SCH ×4 (07:00→23:13)
[2022-05-16 07:30] LABS: Calcium 8.2 mg/dL (8.5-10.1); Potassium 4.4 mmol/L (3.5-5.1)
[2022-05-16 07:31] LABS: Hemoglobin 8.2 g/dL (12.2-16.2)
[2022-05-16 07:33] LABS: Bilirubin, Total 0.7 mg/dL (0.2-1.0); Total Protein 6.2 g/dL (6.4-8.2)
[2022-05-16 07:37] LABS: Hematocrit 24.6 % (36.0-46.0); Mean Corpuscular Hemoglobin 30.5 pg (28.0-32.0); Mean Corpuscular Hgb Conc. 33.2 g/dL (32.0-36.0); Mean Corpuscular Volume 91.8 fL (80.0-100.0); Red Blood Cells 2.68 10^6/uL (4.0-5.20); Red Cell Distribution Width 15.9 % (11.8-14.3)
[2022-05-16 07:40] LABS: Band Neutrophils % (manual) 0; Basophils % (manual) 0 (0.0-2.0); Blast Cells 0; Eosinophils % (manual) 0 (0-7); Myelocytes % 0; Promyelocytes % 0; Reactive Lymphocytes 0; White Blood Cell 39.7 10^3/uL (4.4-10.8)
[2022-05-16 08:43] LABS: INR 1.27 (0.9-1.15); Partial Thromboplastin Time 54.6 sec (24.6-33.4)
[2022-05-16] MEDS: hydrALAZINE HCL 25 MG TAB PO SCH ×2 (10:00→22:00)
[2022-05-16] MEDS: ASCORBIC ACID 500 MG TAB PO SCH ×2 (10:00→22:00)
[2022-05-16] MEDS: ZINC SULFATE 220mg CAP or TAB PO SCH (10:00)
[2022-05-16] MEDS: DOCUSATE SOD 100 MG CAP PO SCH ×2 (10:00→22:00)
[2022-05-16] MEDS: MULTIPLE VITAMIN TAB PO SCH (10:00)
[2022-05-16] MEDS: FERROUS SULFATE 50 MG PO SCH (10:00)
[2022-05-16] MEDS: PANTOPRAZOLE 40 MG TAB PO SCH (10:00)
[2022-05-16] MEDS: ASPirin-EC 81 mg tab PO SCH (10:00)
[2022-05-16] MEDS ORDERED: HEPARIN DRIP/D5W 100UNITS/ML 250 ML IV SCH (10:45)
[2022-05-16] MEDS: DexAMETHasone SOD PHOS 10MG/1ML VIAL INJ IV SCH (10:49)
[2022-05-16] MEDS: SODIUM CHLOR 0.9% PF (SALINE LOCK) 10ML VIAL/SYR IV SCH ×2 (10:49→23:11)
[2022-05-16 13:04] LABS: Lymphocytes % (manual) 44 (10.0-50.0); Metamyelocytes % 1; Monocytes % (manual) 2 (0-12)
[2022-05-16 15:31] LABS: INR 1.28 (0.9-1.15)
[2022-05-16] MEDS: amLODIPine BESYLATE 5 MG TAB PO SCH (17:30)
[2022-05-17] VITALS (52 sets, daily range): BP systolic 102–196; BP diastolic 49–109
[2022-05-17] MEDS: ALBUTEROL SULF HFA 90MCG INH 200DOSE IN SCH ×3 (00:15→18:40)
[2022-05-17] MEDS: hydrALAZINE HCL 20 MG/ML VL IV PRN ×2 (02:28→11:01)
[2022-05-17] MEDS: CEFEPIME 2 GM in SODIUM CHL 0.9% 50 ML IV SCH ×2 (06:16→19:10)
[2022-05-17] MEDS: ACCU-CHEK COMFORT CURVE STRIP VI SCH ×3 (07:00→17:58)
[2022-05-17] MEDS: InsuLIN REG 1unit/0.01ml Soln (100units/ml) SC SCH ×3 (07:00→17:00)
[2022-05-17 08:30] LABS: Calcium 8.2 mg/dL (8.5-10.1); Potassium 4.6 mmol/L (3.5-5.1)
[2022-05-17 08:45] LABS: Eosinophils # (auto) 0 10 ^3/uL (0-0.8); Nucleated Red Blood Cells % 0.1 %; Red Blood Cells 2.64 10^6/uL (4.0-5.20)
[2022-05-17 08:49] LABS: Basophils # (auto) 0.2 10 ^3/uL (0-0.2); Basophils % (auto) 0.6 % (0.0-2.0); Hemoglobin 7.9 g/dL (12.2-16.2); Lymphocytes # (auto) 11.1 10 ^3/uL (0.4-5.4); Lymphocytes % (auto) 30.3 % (10.0-50.0); Mean Corpuscular Volume 90.9 fL (80.0-100.0); Monocytes # (auto) 0.9 10 ^3/uL (0-1.3); Monocytes % (auto) 2.4 % (0.0-12.0); Neutrophils # (auto) 24.3 10 ^3/uL (1.6-8.6); Neutrophils % (auto) 66.7 % (37.0-80.0); Red Cell Distribution Width 15.8 % (11.8-14.3)
[2022-05-17] MEDS: FUROSEMIDE 40 MG/4 ML VIAL IV SCH ×2 (09:07→10:00)
[2022-05-17 09:14] LABS: White Blood Cell 36.4 10^3/uL (4.4-10.8)
[2022-05-17] MEDS: ZINC SULFATE 220mg CAP or TAB PO SCH (10:00)
[2022-05-17] MEDS: FERROUS SULFATE 50 MG PO SCH (10:00)
[2022-05-17] MEDS: DOCUSATE SOD 100 MG CAP PO SCH ×2 (10:00→21:49)
[2022-05-17] MEDS: ASPirin-EC 81 mg tab PO SCH (10:00)
[2022-05-17] MEDS: PANTOPRAZOLE 40 MG TAB PO SCH (10:00)
[2022-05-17] MEDS: hydrALAZINE HCL 25 MG TAB PO SCH (10:00)
[2022-05-17] MEDS: MULTIPLE VITAMIN TAB PO SCH (10:00)
[2022-05-17] MEDS: ASCORBIC ACID 500 MG TAB PO SCH ×2 (10:00→21:49)
[2022-05-17] MEDS ORDERED: DORZ2SOL18 EACHEYE (10:12)
[2022-05-17] MEDS ORDERED: LATA0.0019 EACHEYE (10:12)
[2022-05-17] MEDS: SODIUM CHLOR 0.9% PF (SALINE LOCK) 10ML VIAL/SYR IV SCH ×2 (10:15→21:49)
[2022-05-17] MEDS: DexAMETHasone SOD PHOS 10MG/1ML VIAL INJ IV SCH (10:40)
[2022-05-17] MEDS ORDERED: VERAPAMIL 2.5MG/ML INJ 2ML VIAL IV ONE (10:45)
[2022-05-17] MEDS ORDERED: TPN PER PHARMACY 0 ML IV SCH (10:45)
[2022-05-17] MEDS ORDERED: VANCOMYCIN 500 MG in D5W 5% 100 ML IV SCH (11:00)
[2022-05-17 12:09] LABS: Albumin 2.1 g/dL (3.4-5.0); Bilirubin, Direct 0.1 mg/dL (0-0.2); Bilirubin, Total 1.2 mg/dL (0.2-1.0); Magnesium 3.1 mg/dL (1.6-2.6); Phosphorus 3.8 mg/dL (2.5-4.90); Total Protein 6.1 g/dL (6.4-8.2)
[2022-05-17] MEDS: amLODIPine BESYLATE 5 MG TAB PO SCH (17:30)
[2022-05-17] MEDS: LATANOPROST 0.005 % OPTH(EYE) SOL 2.5ML EACHEYE SCH (18:00)
[2022-05-17] MEDS: AMINO ACID INFUSION IN D10W 1,000 ML IV NR (20:04)
[2022-05-17] MEDS: ENOXAPARIN SOD 80 MG/0.8ML SYRINGE SC SCH (22:15)
[2022-05-17] MEDS: TIMOLOL EACHEYE SCH (22:15)
[2022-05-17] MEDS: DORZOLAMIDE EACHEYE SCH (22:15)
[2022-05-18] VITALS (100 sets, daily range): BP systolic 127–164; BP diastolic 55–70
[2022-05-18] MEDS ORDERED: DEXTROSE (50%) 50ML SYRG IV SCH
[2022-05-18] MEDS: ACCU-CHEK COMFORT CURVE STRIP VI SCH ×5 (00:01→23:45)
[2022-05-18] MEDS: InsuLIN REG 1unit/0.01ml Soln (100units/ml) SC SCH ×5 (00:02→23:46)
[2022-05-18 04:58] LABS: Hematocrit 20.7 % (36.0-46.0); Mean Corpuscular Hemoglobin 28.7 pg (28.0-32.0); Mean Corpuscular Hgb Conc. 31.2 g/dL (32.0-36.0); Red Blood Cells 2.26 10^6/uL (4.0-5.20); Red Cell Distribution Width 16.3 % (11.8-14.3)
[2022-05-18 05:00] LABS: Band Neutrophils % (manual) 0; Hemoglobin 6.5 g/dL (12.2-16.2); White Blood Cell 34.3 10^3/uL (4.4-10.8)
[2022-05-18 05:01] LABS: Basophils % (manual) 0 (0.0-2.0); Blast Cells 0; Eosinophils % (manual) 0 (0-7); Metamyelocytes % 0; Myelocytes % 0; Promyelocytes % 0; Reactive Lymphocytes 0
[2022-05-18 05:12] LABS: Albumin 1.6 g/dL (3.4-5.0); Calcium 6.5 mg/dL (8.5-10.1); Magnesium 2.8 mg/dL (1.6-2.6); Potassium 3.7 mmol/L (3.5-5.1)
[2022-05-18 05:15] LABS: Bilirubin, Total 0.4 mg/dL (0.2-1.0); Phosphorus 3.1 mg/dL (2.5-4.90); Total Protein 4.6 g/dL (6.4-8.2)
[2022-05-18 05:17] LABS: Lymphocytes % (manual) 30 (10.0-50.0); Monocytes % (manual) 1 (0-12)
[2022-05-18] MEDS: CEFEPIME 2 GM in SODIUM CHL 0.9% 50 ML IV SCH ×2 (05:46→19:23)
[2022-05-18] MEDS: ALBUTEROL SULF HFA 90MCG INH 200DOSE IN SCH ×3 (06:00→18:44)
[2022-05-18] MEDS: FUROSEMIDE 40 MG/4 ML VIAL IV SCH (08:37)
[2022-05-18] MEDS: ASCORBIC ACID 500 MG TAB PO SCH ×2 (10:00→21:48)
[2022-05-18] MEDS: DOCUSATE SOD 100 MG CAP PO SCH ×2 (10:00→21:48)
[2022-05-18] MEDS ORDERED: BUMETANIDE 2.5mg/10ml (0.25 mg/ml) INJ IV ONE ×2 (10:00→16:00)
[2022-05-18] MEDS: ASPirin-EC 81 mg tab PO SCH (10:00)
[2022-05-18] MEDS: PANTOPRAZOLE 40 MG TAB PO SCH (10:00)
[2022-05-18] MEDS: ZINC SULFATE 220mg CAP or TAB PO SCH (10:00)
[2022-05-18] MEDS ORDERED: FERROUS SULFATE 45 MG PO SCH (10:00)
[2022-05-18] MEDS: MULTIPLE VITAMIN TAB PO SCH (10:00)
[2022-05-18] MEDS: TIMOLOL EACHEYE SCH ×2 (10:19→21:48)
[2022-05-18] MEDS: DORZOLAMIDE EACHEYE SCH ×2 (10:19→21:48)
[2022-05-18] MEDS: SODIUM CHLOR 0.9% PF (SALINE LOCK) 10ML VIAL/SYR IV SCH ×2 (10:21→21:48)
[2022-05-18] MEDS: DexAMETHasone SOD PHOS 10MG/1ML VIAL INJ IV SCH (10:21)
[2022-05-18] MEDS: ENOXAPARIN SOD 80 MG/0.8ML SYRINGE SC SCH (11:16)
[2022-05-18] MEDS ORDERED: SODIUM CHLORIDE 0.9% 1,000 ML IV SCH (14:15)
[2022-05-18] MEDS: amLODIPine BESYLATE 5 MG TAB PO SCH (17:30)
[2022-05-18] MEDS: LATANOPROST 0.005 % OPTH(EYE) SOL 2.5ML EACHEYE SCH (19:24)
[2022-05-18] MEDS: AMINO ACID INFUSION IN D10W 1,000 ML IV NR (19:49)
[2022-05-18] MEDS ORDERED: TPN PER PHARMACY IV NR ×10 (20:00)
[2022-05-18] MEDS: hydrALAZINE HCL 20 MG/ML VL IV PRN (20:34)
[2022-05-18] MEDS: diphenhdrAMINE HCL 50 MG/1 ML VL IV PRN (20:43)
[2022-05-19] VITALS (95 sets, daily range): BP systolic 131–169; BP diastolic 54–76
[2022-05-19] MEDS: MORPHINE SULFATE INJ 2 MG/ml SYRG IV PRN ×3 (02:51→20:20)
[2022-05-19] MEDS: hydrALAZINE HCL 20 MG/ML VL IV PRN ×2 (02:52→18:04)
[2022-05-19] MEDS: diphenhdrAMINE HCL 50 MG/1 ML VL IV PRN ×3 (04:32→23:03)
[2022-05-19 05:21] LABS: Hemoglobin 8.2 g/dL (12.2-16.2); Mean Corpuscular Hgb Conc. 31.8 g/dL (32.0-36.0); Red Cell Distribution Width 17.1 % (11.8-14.3)
[2022-05-19] MEDS: CEFEPIME 2 GM in SODIUM CHL 0.9% 50 ML IV SCH ×2 (05:22→17:49)
[2022-05-19 05:23] LABS: Hematocrit 25.6 % (36.0-46.0); Mean Corpuscular Hemoglobin 29.8 pg (28.0-32.0); Mean Corpuscular Volume 93.5 fL (80.0-100.0); Red Blood Cells 2.74 10^6/uL (4.0-5.20)
[2022-05-19 05:41] LABS: White Blood Cell 38.1 10^3/uL (4.4-10.8)
[2022-05-19 05:42] LABS: Albumin 1.7 g/dL (3.4-5.0); Band Neutrophils % (manual) 0; Basophils % (manual) 0 (0.0-2.0); Blast Cells 0; Calcium 6.7 mg/dL (8.5-10.1); Eosinophils % (manual) 0 (0-7); Magnesium 2.7 mg/dL (1.6-2.6); Metamyelocytes % 0; Myelocytes % 0; Promyelocytes % 0; Reactive Lymphocytes 0
[2022-05-19 05:43] LABS: Phosphorus 3.4 mg/dL (2.5-4.90)
[2022-05-19 05:46] LABS: Bilirubin, Total 0.5 mg/dL (0.2-1.0)
[2022-05-19] MEDS: InsuLIN REG 1unit/0.01ml Soln (100units/ml) SC SCH ×3 (05:49→18:24)
[2022-05-19] MEDS: ACCU-CHEK COMFORT CURVE STRIP VI SCH ×3 (05:50→18:24)
[2022-05-19] MEDS: ALBUTEROL SULF HFA 90MCG INH 200DOSE IN SCH (06:00)
[2022-05-19] MEDS ORDERED: niCARdipine 50 MG in SODIUM CHL 0.9% 230 ML IV SCH (07:30)
[2022-05-19] MEDS ORDERED: SOD CHL 0.45% 1,000 ML IV SCH (08:30)
[2022-05-19] MEDS: FUROSEMIDE 40 MG/4 ML VIAL IV SCH (08:36)
[2022-05-19 08:57] LABS: Lymphocytes % (manual) 20 (10.0-50.0); Monocytes % (manual) 2 (0-12)
[2022-05-19] MEDS: TIMOLOL EACHEYE SCH ×2 (09:20→21:01)
[2022-05-19] MEDS: DORZOLAMIDE EACHEYE SCH ×2 (09:20→21:01)
[2022-05-19] MEDS: SODIUM CHLOR 0.9% PF (SALINE LOCK) 10ML VIAL/SYR IV SCH ×2 (09:20→21:01)
[2022-05-19] MEDS: ENOXAPARIN SOD 80 MG/0.8ML SYRINGE SC SCH (09:21)
[2022-05-19] MEDS: DOCUSATE SOD 100 MG CAP PO SCH ×2 (09:27→19:37)
[2022-05-19] MEDS: MULTIPLE VITAMIN TAB PO SCH (09:27)
[2022-05-19] MEDS: ASPirin-EC 81 mg tab PO SCH (09:27)
[2022-05-19] MEDS: PANTOPRAZOLE 40 MG TAB PO SCH (09:28)
[2022-05-19] MEDS: D5W 5% 1,000 ML IV SCH ×2 (11:00→21:00)
[2022-05-19] MEDS: PANTOPRAZOLE 40 MG/10 ML VIAL INJ IV SCH (12:12)
[2022-05-19] MEDS: niCARdipine 50 MG in SODIUM CHL 0.9% 230 ML IV SCH ×2 (12:15→21:00)
[2022-05-19] MEDS ORDERED: ALBUTEROL SULF HFA 90MCG INH 200DOSE IN PRN (14:45)
[2022-05-19] MEDS ORDERED: SODIUM FERR GLUC 62.5MG/5ML 125 MG in SODIUM CHL 0.9% 100 ML IV ONE (18:00)
[2022-05-19] MEDS: LATANOPROST 0.005 % OPTH(EYE) SOL 2.5ML EACHEYE SCH (18:24)
[2022-05-19] MEDS ORDERED: TPN PER PHARMACY IV NR ×10 (20:00)
[2022-05-20] VITALS (100 sets, daily range): BP systolic 119–169; BP diastolic 43–68
[2022-05-20] MEDS: hydrALAZINE HCL 20 MG/ML VL IV PRN ×2 (00:07→06:16)
[2022-05-20] MEDS: ACCU-CHEK COMFORT CURVE STRIP VI SCH ×4 (00:29→18:00)
[2022-05-20] MEDS: InsuLIN REG 1unit/0.01ml Soln (100units/ml) SC SCH ×4 (00:32→18:00)
[2022-05-20] MEDS: D5W 5% 1,000 ML IV SCH ×3 (00:33→20:35)
[2022-05-20] MEDS: niCARdipine 50 MG in SODIUM CHL 0.9% 230 ML IV SCH (03:12)
[2022-05-20 05:15] LABS: Hemoglobin 7.7 g/dL (12.2-16.2); Mean Corpuscular Hgb Conc. 31.2 g/dL (32.0-36.0); Red Blood Cells 2.68 10^6/uL (4.0-5.20)
[2022-05-20 05:17] LABS: Hematocrit 24.7 % (36.0-46.0); Mean Corpuscular Hemoglobin 28.7 pg (28.0-32.0); Mean Corpuscular Volume 92.1 fL (80.0-100.0); Red Cell Distribution Width 16.9 % (11.8-14.3)
[2022-05-20 05:55] LABS: Albumin 1.8 g/dL (3.4-5.0); Calcium 6.7 mg/dL (8.5-10.1); Magnesium 2.6 mg/dL (1.6-2.6); Potassium 4.1 mmol/L (3.5-5.1)
[2022-05-20 05:59] LABS: BUN/Creatinine Ratio 56.2; Bilirubin, Total 0.4 mg/dL (0.2-1.0); Phosphorus 4.4 mg/dL (2.5-4.90); Total Protein 4.8 g/dL (6.4-8.2)
[2022-05-20] MEDS: CEFEPIME 2 GM in SODIUM CHL 0.9% 50 ML IV SCH (06:00)
[2022-05-20 06:13] LABS: Band Neutrophils % (manual) 0; Basophils % (manual) 0 (0.0-2.0); Blast Cells 0; Eosinophils % (manual) 0 (0-7); Myelocytes % 0; Promyelocytes % 0; Reactive Lymphocytes 0
[2022-05-20] MEDS: fentaNYL Drip 2500mCg/250mlNS 250 ML IV SCH (08:00)
[2022-05-20] MEDS: MIDAZOLAM DRIP 50 mg/50mL 50 ML IV SCH ×2 (08:00→14:30)
[2022-05-20] MEDS ORDERED: FUROSEMIDE 40 MG/4 ML VIAL IV ONE ×2 (08:00→08:30)
[2022-05-20] MEDS ORDERED: GLYCOPYRROLATE 0.2 MG/ML 1ML VIAL IV ONE (08:00)
[2022-05-20] MEDS ORDERED: GLYCOPYRROLATE 0.2 MG/ML 1ML VIAL IM ONE (08:00)
[2022-05-20] MEDS ORDERED: SODIUM BICARBONATE 8.4 % INJ 50ML VIAL IV ONE (08:00)
[2022-05-20] MEDS: NOREPINEPHRINE 8 MG/250ML KIT 250 ML IV SCH (08:00)
[2022-05-20] MEDS ORDERED: ROCURONIUM 10MG/ML 10ML VIAL IV ONE (08:15)
[2022-05-20] MEDS ORDERED: ETOMIDATE (2MG/ML) 20ML VIAL IV ONE (08:15)
[2022-05-20] MEDS: TIMOLOL EACHEYE SCH ×2 (10:00→21:36)
[2022-05-20] MEDS: DORZOLAMIDE EACHEYE SCH ×2 (10:00→21:36)
[2022-05-20] MEDS: INSULIN LANTUS (GLARGINE) 1 /0.01ml (100units/ml) SC SCH (10:00)
[2022-05-20] MEDS: SODIUM CHLOR 0.9% PF (SALINE LOCK) 10ML VIAL/SYR IV SCH ×2 (10:00→21:37)
[2022-05-20 10:10] LABS: Lymphocytes % (manual) 32 (10.0-50.0); Metamyelocytes % 1; Monocytes % (manual) 1 (0-12)
[2022-05-20] MEDS: ENOXAPARIN SOD 60 MG/0.6 ML SYRINGE SC SCH (11:16)
[2022-05-20] MEDS: PANTOPRAZOLE 40 MG/10 ML VIAL INJ IV SCH (11:16)
[2022-05-20] MEDS: SODIUM FERR GLUC 62.5MG/5ML 125 MG in SODIUM CHL 0.9% 100 ML IV SCH (12:16)
[2022-05-20] MEDS: LATANOPROST 0.005 % OPTH(EYE) SOL 2.5ML EACHEYE SCH (18:00)
[2022-05-20] MEDS ORDERED: TPN PER PHARMACY IV NR ×8 (20:00)
[2022-05-20] MEDS: CEFEPIME 1GM/ 50ML 50 ML IV SCH (21:36)
[2022-05-20] MEDS: LINEZOLID 600MG/300ML 300 ML IV SCH (21:37)
[2022-05-21] VITALS (109 sets, daily range): BP systolic 123–159; BP diastolic 48–63
[2022-05-21] MEDS: InsuLIN REG 1unit/0.01ml Soln (100units/ml) SC SCH ×4 (00:11→18:00)
[2022-05-21] MEDS: ACCU-CHEK COMFORT CURVE STRIP VI SCH ×4 (00:11→18:00)
[2022-05-21] MEDS ORDERED: ALBUTEROL SULF 2.5 MG/0.5ML(0.5%) NEB SOLN NEB PRN (05:45)
[2022-05-21 06:26] LABS: Basophils # (auto) 0.2 10 ^3/uL (0-0.2); Basophils % (auto) 0.7 % (0.0-2.0); Eosinophils # (auto) 0.2 10 ^3/uL (0-0.8); Eosinophils % (auto) 0.6 % (0.0-7.0); Hematocrit 19.8 % (36.0-46.0); Lymphocytes % (auto) 26.1 % (10.0-50.0); Mean Corpuscular Hemoglobin 29.2 pg (28.0-32.0); Mean Corpuscular Hgb Conc. 32.3 g/dL (32.0-36.0); Mean Corpuscular Volume 90.4 fL (80.0-100.0); Monocytes # (auto) 0.7 10 ^3/uL (0-1.3); Monocytes % (auto) 2.5 % (0.0-12.0); Neutrophils # (auto) 18.8 10 ^3/uL (1.6-8.6); Neutrophils % (auto) 70.1 % (37.0-80.0); Nucleated Red Blood Cells % 0.1 %; Red Blood Cells 2.19 10^6/uL (4.0-5.20); Red Cell Distribution Width 16.7 % (11.8-14.3); White Blood Cell 26.8 10^3/uL (4.4-10.8)
[2022-05-21] MEDS: MIDAZOLAM DRIP 50 mg/50mL 50 ML IV SCH ×2 (06:37→17:00)
[2022-05-21 06:40] LABS: Potassium 3.9 mmol/L (3.5-5.1)
[2022-05-21 06:49] LABS: Albumin 1.3 g/dL (3.4-5.0); BUN/Creatinine Ratio 46.3; Magnesium 2.3 mg/dL (1.6-2.6)
[2022-05-21 06:52] LABS: Bilirubin, Total 0.4 mg/dL (0.2-1.0); Phosphorus 2.9 mg/dL (2.5-4.90); Total Protein 4.3 g/dL (6.4-8.2)
[2022-05-21 07:19] LABS: Hemoglobin 6.4 g/dL (12.2-16.2)
[2022-05-21] MEDS: NOREPINEPHRINE 8 MG/250ML KIT 250 ML IV SCH (08:00)
[2022-05-21] MEDS: fentaNYL Drip 2500mCg/250mlNS 250 ML IV SCH (08:00)
[2022-05-21] MEDS: CEFEPIME 1GM/ 50ML 50 ML IV SCH ×2 (09:36→21:10)
[2022-05-21] MEDS: TIMOLOL EACHEYE SCH ×2 (09:36→22:10)
[2022-05-21] MEDS: DORZOLAMIDE EACHEYE SCH ×2 (09:36→22:10)
[2022-05-21] MEDS: LINEZOLID 600MG/300ML 300 ML IV SCH ×2 (09:36→21:09)
[2022-05-21] MEDS: PANTOPRAZOLE 40 MG/10 ML VIAL INJ IV SCH (09:44)
[2022-05-21] MEDS: SODIUM CHLOR 0.9% PF (SALINE LOCK) 10ML VIAL/SYR IV SCH ×2 (09:44→21:10)
[2022-05-21] MEDS: ENOXAPARIN SOD 60 MG/0.6 ML SYRINGE SC SCH (09:45)
[2022-05-21] MEDS: INSULIN LANTUS (GLARGINE) 1 /0.01ml (100units/ml) SC SCH (09:53)
[2022-05-21] MEDS ORDERED: CEFEPIME 1GM/ 50ML 50 ML IV SCH (10:00)
[2022-05-21] MEDS ORDERED: FUROSEMIDE 40 MG/4 ML VIAL IV SCH (10:00)
[2022-05-21] MEDS: D5W 5% 1,000 ML IV SCH (11:17)
[2022-05-21] MEDS: SODIUM FERR GLUC 62.5MG/5ML 125 MG in SODIUM CHL 0.9% 100 ML IV SCH (12:00)
[2022-05-21] MEDS ORDERED: FUROSEMIDE 100 MG/10ML VIAL IV ONE (15:45)
[2022-05-21 16:54] LABS: Hemoglobin 7.6 g/dL (12.2-16.2)
[2022-05-21 16:56] LABS: Hematocrit 24.3 % (36.0-46.0)
[2022-05-21] MEDS: LATANOPROST 0.005 % OPTH(EYE) SOL 2.5ML EACHEYE SCH (18:00)
[2022-05-21] MEDS ORDERED: HEPARIN SODIUM (PORCINE) 5000 UNITS/ML 1ML VIAL IV ONE (18:45)
[2022-05-21] MEDS ORDERED: HEPARIN 1,000 UNITS/ml 1ML VIAL ONE (18:50)
[2022-05-21] MEDS ORDERED: TPN PER PHARMACY IV NR ×10 (20:00)
[2022-05-22] VITALS (100 sets, daily range): BP systolic 127–156; BP diastolic 45–63
[2022-05-22] MEDS: ACCU-CHEK COMFORT CURVE STRIP VI SCH ×4 (00:02→17:50)
[2022-05-22] MEDS: InsuLIN REG 1unit/0.01ml Soln (100units/ml) SC SCH ×4 (00:03→17:53)
[2022-05-22] MEDS: fentaNYL Drip 2500mCg/250mlNS 250 ML IV SCH (01:45)
[2022-05-22] MEDS: D5W 5% 1,000 ML IV SCH (06:01)
[2022-05-22] MEDS: MIDAZOLAM DRIP 50 mg/50mL 50 ML IV SCH ×2 (06:01→15:42)
[2022-05-22 06:44] LABS: Basophils # (auto) 0.3 10 ^3/uL (0-0.2); Basophils % (auto) 1.2 % (0.0-2.0); Eosinophils # (auto) 0.4 10 ^3/uL (0-0.8); Eosinophils % (auto) 1.6 % (0.0-7.0); Hematocrit 24.2 % (36.0-46.0); Hemoglobin 7.6 g/dL (12.2-16.2); Lymphocytes # (auto) 5.5 10 ^3/uL (0.4-5.4); Lymphocytes % (auto) 23.5 % (10.0-50.0); Mean Corpuscular Hemoglobin 33.2 pg (28.0-32.0); Mean Corpuscular Hgb Conc. 31.2 g/dL (32.0-36.0); Mean Corpuscular Volume 106.4 fL (80.0-100.0); Monocytes # (auto) 0.7 10 ^3/uL (0-1.3); Monocytes % (auto) 2.8 % (0.0-12.0); Neutrophils # (auto) 16.5 10 ^3/uL (1.6-8.6); Neutrophils % (auto) 70.9 % (37.0-80.0); Nucleated Red Blood Cells % 0.1 %; Red Blood Cells 2.28 10^6/uL (4.0-5.20); Red Cell Distribution Width 18.1 % (11.8-14.3); White Blood Cell 23.3 10^3/uL (4.4-10.8)
[2022-05-22] MEDS: NOREPINEPHRINE 8 MG/250ML KIT 250 ML IV SCH (08:00)
[2022-05-22 09:05] LABS: Albumin 1.3 g/dL (3.4-5.0); Calcium 6.6 mg/dL (8.5-10.1); Potassium 3.5 mmol/L (3.5-5.1)
[2022-05-22 09:10] LABS: BUN/Creatinine Ratio 39.6; Bilirubin, Total 0.4 mg/dL (0.2-1.0); Phosphorus 2.6 mg/dL (2.5-4.90); Total Protein 4.5 g/dL (6.4-8.2)
[2022-05-22] MEDS: PANTOPRAZOLE 40 MG/10 ML VIAL INJ IV SCH ×2 (10:16→21:37)
[2022-05-22] MEDS: FUROSEMIDE 100 MG/10ML VIAL IV SCH (10:16)
[2022-05-22] MEDS: LINEZOLID 600MG/300ML 300 ML IV SCH ×2 (10:16→21:37)
[2022-05-22] MEDS: TIMOLOL EACHEYE SCH ×2 (10:17→21:38)
[2022-05-22] MEDS: DORZOLAMIDE EACHEYE SCH ×2 (10:17→21:38)
[2022-05-22] MEDS: SODIUM CHLOR 0.9% PF (SALINE LOCK) 10ML VIAL/SYR IV SCH ×2 (10:17→21:37)
[2022-05-22] MEDS: CEFEPIME 1GM/ 50ML 50 ML IV SCH (10:17)
[2022-05-22] MEDS: INSULIN LANTUS (GLARGINE) 1 /0.01ml (100units/ml) SC SCH (10:31)
[2022-05-22] MEDS ORDERED: SODIUM CHL 0.9% 1000 ML BAG XX ONE (11:00)
[2022-05-22] MEDS: SODIUM FERR GLUC 62.5MG/5ML 125 MG in SODIUM CHL 0.9% 100 ML IV SCH (12:00)
[2022-05-22] MEDS: LATANOPROST 0.005 % OPTH(EYE) SOL 2.5ML EACHEYE SCH (17:55)
[2022-05-22] MEDS: TPN PER PHARMACY IV NR ×9 (20:17)
[2022-05-22] MEDS ORDERED: EPOETIN ALFA-EPBX 4,000 UNIT/ML VIAL SC ONE (21:00)
[2022-05-23] VITALS (103 sets, daily range): BP systolic 111–163; BP diastolic 43–70
[2022-05-23] MEDS: CEFEPIME 1GM/ 50ML 50 ML IV SCH ×2 (00:10→09:29)
[2022-05-23] MEDS: ACCU-CHEK COMFORT CURVE STRIP VI SCH ×4 (00:55→18:14)
[2022-05-23] MEDS: InsuLIN REG 1unit/0.01ml Soln (100units/ml) SC SCH ×4 (01:04→18:15)
[2022-05-23 05:05] LABS: Red Blood Cells 2.79 10^6/uL (4.0-5.20); White Blood Cell 26.9 10^3/uL (4.4-10.8)
[2022-05-23 05:07] LABS: Hematocrit 25.3 % (36.0-46.0); Hemoglobin 8.3 g/dL (12.2-16.2); Mean Corpuscular Hemoglobin 29.7 pg (28.0-32.0); Mean Corpuscular Hgb Conc. 32.8 g/dL (32.0-36.0); Mean Corpuscular Volume 90.6 fL (80.0-100.0); Red Cell Distribution Width 15.4 % (11.8-14.3)
[2022-05-23 05:14] LABS: Basophils % (manual) 0 (0.0-2.0); Blast Cells 0; Metamyelocytes % 0; Myelocytes % 0; Promyelocytes % 0; Reactive Lymphocytes 0
[2022-05-23 05:21] LABS: Albumin 1.2 g/dL (3.4-5.0); Calcium 6.9 mg/dL (8.5-10.1); Potassium 3.7 mmol/L (3.5-5.1)
[2022-05-23 05:23] LABS: BUN/Creatinine Ratio 35.5; Magnesium 2.2 mg/dL (1.6-2.6)
[2022-05-23 05:26] LABS: Bilirubin, Total 0.3 mg/dL (0.2-1.0); Phosphorus 3.3 mg/dL (2.5-4.90); Total Protein 4.3 g/dL (6.4-8.2)
[2022-05-23] MEDS: MIDAZOLAM DRIP 50 mg/50mL 50 ML IV SCH ×3 (07:09→19:35)
[2022-05-23] MEDS: fentaNYL Drip 2500mCg/250mlNS 250 ML IV SCH ×2 (07:18→23:30)
[2022-05-23] MEDS: NOREPINEPHRINE 8 MG/250ML KIT 250 ML IV SCH (07:19)
[2022-05-23 08:40] LABS: Band Neutrophils % (manual) 4; Eosinophils % (manual) 3 (0-7); Lymphocytes % (manual) 28 (10.0-50.0); Monocytes % (manual) 2 (0-12)
[2022-05-23] MEDS: SODIUM CHLOR 0.9% PF (SALINE LOCK) 10ML VIAL/SYR IV SCH ×2 (09:29→21:58)
[2022-05-23] MEDS: FUROSEMIDE 100 MG/10ML VIAL IV SCH (09:29)
[2022-05-23] MEDS: PANTOPRAZOLE 40 MG/10 ML VIAL INJ IV SCH ×2 (09:38→21:58)
[2022-05-23] MEDS: DORZOLAMIDE EACHEYE SCH ×2 (09:49→22:41)
[2022-05-23] MEDS: TIMOLOL EACHEYE SCH ×2 (09:49→22:41)
[2022-05-23] MEDS: INSULIN LANTUS (GLARGINE) 1 /0.01ml (100units/ml) SC SCH (09:50)
[2022-05-23] MEDS: LINEZOLID 600MG/300ML 300 ML IV SCH ×2 (10:00→21:58)
[2022-05-23] MEDS: SODIUM FERR GLUC 62.5MG/5ML 125 MG in SODIUM CHL 0.9% 100 ML IV SCH (12:10)
[2022-05-23] MEDS: BUMETANIDE 1mg/4ml VIAL (0.25mg/ml) IV SCH (17:57)
[2022-05-23] MEDS: LATANOPROST 0.005 % OPTH(EYE) SOL 2.5ML EACHEYE SCH (18:14)
[2022-05-23] MEDS: ALBUMIN 25% 100 ML IV SCH (18:23)
[2022-05-23] MEDS: DOPamine 1600MCG/ML D5W 250 ML IV SCH (18:29)
[2022-05-23] MEDS: TPN PER PHARMACY IV NR ×9 (19:50)
[2022-05-23] MEDS ORDERED: TPN PER PHARMACY IV NR ×11 (20:00)
[2022-05-24] VITALS (100 sets, daily range): BP systolic 127–171; BP diastolic 44–71
[2022-05-24] MEDS: ACCU-CHEK COMFORT CURVE STRIP VI SCH ×4 (00:29→18:18)
[2022-05-24] MEDS: CEFEPIME 1GM/ 50ML 50 ML IV SCH (00:31)
[2022-05-24] MEDS: InsuLIN REG 1unit/0.01ml Soln (100units/ml) SC SCH ×4 (00:35→18:21)
[2022-05-24] MEDS: MIDAZOLAM DRIP 50 mg/50mL 50 ML IV SCH ×2 (04:43→16:56)
[2022-05-24] MEDS: ALBUMIN 25% 100 ML IV SCH ×2 (06:03→16:48)
[2022-05-24] MEDS: BUMETANIDE 1mg/4ml VIAL (0.25mg/ml) IV SCH ×2 (06:06→17:43)
[2022-05-24 06:44] LABS: Albumin 1.5 g/dL (3.4-5.0); Calcium 6.8 mg/dL (8.5-10.1); Magnesium 2.1 mg/dL (1.6-2.6); Potassium 4.6 mmol/L (3.5-5.1)
[2022-05-24 06:52] LABS: BUN/Creatinine Ratio 29.3; Bilirubin, Total 0.7 mg/dL (0.2-1.0); Total Protein 4.7 g/dL (6.4-8.2)
[2022-05-24] MEDS: NOREPINEPHRINE 8 MG/250ML KIT 250 ML IV SCH (08:00)
[2022-05-24 08:12] LABS: Albumin 1.6 g/dL (3.4-5.0); Calcium 7.2 mg/dL (8.5-10.1); Potassium 3.4 mmol/L (3.5-5.1)
[2022-05-24 08:15] LABS: BUN/Creatinine Ratio 30.6; Bilirubin, Total 0.6 mg/dL (0.2-1.0)
[2022-05-24] MEDS ORDERED: POTASSIUM EFFERVESENT TAB 25 MEQ GT ONE (09:30)
[2022-05-24] MEDS: DORZOLAMIDE EACHEYE SCH ×2 (09:46→21:53)
[2022-05-24] MEDS: TIMOLOL EACHEYE SCH ×2 (09:46→21:53)
[2022-05-24] MEDS: SODIUM CHLOR 0.9% PF (SALINE LOCK) 10ML VIAL/SYR IV SCH ×2 (09:47→21:53)
[2022-05-24] MEDS: LINEZOLID 600MG/300ML 300 ML IV SCH ×2 (09:47→21:52)
[2022-05-24] MEDS: PANTOPRAZOLE 40 MG/10 ML VIAL INJ IV SCH ×2 (09:47→21:53)
[2022-05-24 10:01] LABS: Protein, Urine 68.8 mg/dL (0.0-11.9)
[2022-05-24] MEDS ORDERED: POTASSIUM CHL 20MEQ/100ML 100 ML IV ONE (10:30)
[2022-05-24] MEDS: INSULIN LANTUS (GLARGINE) 1 /0.01ml (100units/ml) SC SCH (11:01)
[2022-05-24] MEDS: MICAFUNGIN SODIUM 100 MG in SODIUM CHL 0.9% 100 ML IV SCH (11:19)
[2022-05-24] MEDS: SODIUM FERR GLUC 62.5MG/5ML 125 MG in SODIUM CHL 0.9% 100 ML IV SCH (13:52)
[2022-05-24] MEDS: LATANOPROST 0.005 % OPTH(EYE) SOL 2.5ML EACHEYE SCH (17:44)
[2022-05-24] MEDS: DOPamine 1600MCG/ML D5W 250 ML IV SCH (18:18)
[2022-05-24] MEDS ORDERED: TPN PER PHARMACY IV NR ×10 (20:00)
[2022-05-25] VITALS (106 sets, daily range): BP systolic 127–167; BP diastolic 50–66
[2022-05-25] MEDS: ACCU-CHEK COMFORT CURVE STRIP VI SCH ×5 (00:30→23:41)
[2022-05-25] MEDS: InsuLIN REG 1unit/0.01ml Soln (100units/ml) SC SCH ×5 (00:31→23:43)
[2022-05-25] MEDS: MIDAZOLAM DRIP 50 mg/50mL 50 ML IV SCH ×2 (01:25→16:37)
[2022-05-25] MEDS: hydrALAZINE HCL 20 MG/ML VL IV PRN (04:12)
[2022-05-25] MEDS: ALBUMIN 25% 100 ML IV SCH ×3 (05:32→16:24)
[2022-05-25] MEDS: BUMETANIDE 1mg/4ml VIAL (0.25mg/ml) IV SCH ×2 (05:33→17:48)
[2022-05-25 06:04] LABS: Basophils # (auto) 0.1 10 ^3/uL (0-0.2); Basophils % (auto) 0.6 % (0.0-2.0); Eosinophils # (auto) 0.4 10 ^3/uL (0-0.8); Eosinophils % (auto) 1.9 % (0.0-7.0); Lymphocytes # (auto) 5.4 10 ^3/uL (0.4-5.4); Mean Corpuscular Hemoglobin 29.9 pg (28.0-32.0); Mean Corpuscular Hgb Conc. 33.1 g/dL (32.0-36.0); Mean Corpuscular Volume 90.1 fL (80.0-100.0); Monocytes # (auto) 0.9 10 ^3/uL (0-1.3); Monocytes % (auto) 4.3 % (0.0-12.0); Neutrophils % (auto) 67.2 % (37.0-80.0); Nucleated Red Blood Cells % 0.1 %; Red Blood Cells 2.67 10^6/uL (4.0-5.20); Red Cell Distribution Width 15.4 % (11.8-14.3); White Blood Cell 20.9 10^3/uL (4.4-10.8)
[2022-05-25 06:15] LABS: Potassium 4.3 mmol/L (3.5-5.1)
[2022-05-25 06:23] LABS: Albumin 2.2 g/dL (3.4-5.0); BUN/Creatinine Ratio 30.7; Bilirubin, Total 0.9 mg/dL (0.2-1.0); Calcium 7.1 mg/dL (8.5-10.1); Magnesium 2.1 mg/dL (1.6-2.6); Phosphorus 3.2 mg/dL (2.5-4.90); Total Protein 5.1 g/dL (6.4-8.2)
[2022-05-25] MEDS ORDERED: SODIUM CHL 0.9% 1000 ML BAG XX ONE (07:00)
[2022-05-25] MEDS: NOREPINEPHRINE 8 MG/250ML KIT 250 ML IV SCH (08:00)
[2022-05-25] MEDS: DOXYCYCLINE 100MG/250ML 250 ML IV SCH ×2 (09:22→20:57)
[2022-05-25] MEDS: PANTOPRAZOLE 40 MG/10 ML VIAL INJ IV SCH ×2 (09:51→21:37)
[2022-05-25] MEDS: SODIUM CHLOR 0.9% PF (SALINE LOCK) 10ML VIAL/SYR IV SCH ×2 (09:51→21:37)
[2022-05-25] MEDS: TIMOLOL EACHEYE SCH ×2 (09:51→21:37)
[2022-05-25] MEDS: DORZOLAMIDE EACHEYE SCH ×2 (09:51→21:37)
[2022-05-25] MEDS: CHOLECALCIFEROL (VITD3) 1,000UNIT=25mCg TAB PO SCH (09:55)
[2022-05-25] MEDS: INSULIN LANTUS (GLARGINE) 1 /0.01ml (100units/ml) SC SCH (09:55)
[2022-05-25] MEDS ORDERED: ALBUMIN 25% 100 ML IV PRN (10:15)
[2022-05-25] MEDS: MICAFUNGIN SODIUM 100 MG in SODIUM CHL 0.9% 100 ML IV SCH (11:26)
[2022-05-25] MEDS: SODIUM FERR GLUC 62.5MG/5ML 125 MG in SODIUM CHL 0.9% 100 ML IV SCH (12:20)
[2022-05-25] MEDS: fentaNYL Drip 2500mCg/250mlNS 250 ML IV SCH (12:21)
[2022-05-25] MEDS: LATANOPROST 0.005 % OPTH(EYE) SOL 2.5ML EACHEYE SCH (17:49)
[2022-05-25] MEDS ORDERED: POTASSIUM ACETATE IV NR ×10 (20:00)
[2022-05-25] MEDS ORDERED: FAT EMULSION IV NR ×10 (20:00)
[2022-05-25] MEDS ORDERED: [UNRECOGNIZED DRUG - OTHER] IV NR ×10 (20:00)
[2022-05-25] MEDS ORDERED: SODIUM PHOSPHATES IV NR ×10 (20:00)
[2022-05-25] MEDS ORDERED: EPOETIN ALFA-EPBX 10,000 UNIT/1ML VIAL SC ONE (21:00)
[2022-05-26] VITALS (106 sets, daily range): BP systolic 128–191; BP diastolic 44–78
[2022-05-26] MEDS: MIDAZOLAM DRIP 50 mg/50mL 50 ML IV SCH ×3 (02:31→20:00)
[2022-05-26] MEDS: BUMETANIDE 1mg/4ml VIAL (0.25mg/ml) IV SCH ×2 (06:00→17:55)
[2022-05-26] MEDS: InsuLIN REG 1unit/0.01ml Soln (100units/ml) SC SCH ×4 (06:02→23:50)
[2022-05-26] MEDS: ACCU-CHEK COMFORT CURVE STRIP VI SCH ×4 (06:09→23:49)
[2022-05-26 06:58] LABS: Basophils # (auto) 0.1 10 ^3/uL (0-0.2); Basophils % (auto) 0.4 % (0.0-2.0); Nucleated Red Blood Cells % 0.1 %
[2022-05-26 07:03] LABS: Eosinophils # (auto) 0.2 10 ^3/uL (0-0.8); Eosinophils % (auto) 1.8 % (0.0-7.0); Lymphocytes # (auto) 3.9 10 ^3/uL (0.4-5.4); Lymphocytes % (auto) 29.3 % (10.0-50.0); Mean Corpuscular Hemoglobin 32.3 pg (28.0-32.0); Mean Corpuscular Hgb Conc. 30.9 g/dL (32.0-36.0); Mean Corpuscular Volume 104.5 fL (80.0-100.0); Monocytes # (auto) 0.7 10 ^3/uL (0-1.3); Monocytes % (auto) 4.9 % (0.0-12.0); Neutrophils # (auto) 8.4 10 ^3/uL (1.6-8.6); Neutrophils % (auto) 63.6 % (37.0-80.0); Red Blood Cells 2.01 10^6/uL (4.0-5.20); Red Cell Distribution Width 17.3 % (11.8-14.3); White Blood Cell 13.3 10^3/uL (4.4-10.8)
[2022-05-26 07:10] LABS: Hemoglobin 6.5 g/dL (12.2-16.2)
[2022-05-26] MEDS: NOREPINEPHRINE 8 MG/250ML KIT 250 ML IV SCH (08:00)
[2022-05-26] MEDS: TIMOLOL EACHEYE SCH ×2 (10:00→21:09)
[2022-05-26] MEDS: DORZOLAMIDE EACHEYE SCH ×2 (10:00→21:09)
[2022-05-26] MEDS: CHOLECALCIFEROL (VITD3) 1,000UNIT=25mCg TAB PO SCH (10:00)
[2022-05-26] MEDS: MICAFUNGIN SODIUM 100 MG in SODIUM CHL 0.9% 100 ML IV SCH (10:00)
[2022-05-26] MEDS: PANTOPRAZOLE 40 MG/10 ML VIAL INJ IV SCH ×2 (10:00→21:08)
[2022-05-26] MEDS: INSULIN LANTUS (GLARGINE) 1 /0.01ml (100units/ml) SC SCH (10:00)
[2022-05-26] MEDS: SODIUM CHLOR 0.9% PF (SALINE LOCK) 10ML VIAL/SYR IV SCH ×2 (10:08→21:08)
[2022-05-26] MEDS: DOXYCYCLINE 100MG/250ML 250 ML IV SCH ×2 (10:08→20:18)
[2022-05-26 11:47] LABS: Sodium 129 mmol/L (136-145)
[2022-05-26 11:48] LABS: Anion Gap 11 (5-15); Carbon Dioxide 24 mmol/L (21-32); Chloride 94 mmol/L (98-107); Potassium 5.5 mmol/L (3.5-5.1)
[2022-05-26 11:50] LABS: BUN/Creatinine Ratio 25.3; Blood Urea Nitrogen 76 mg/dL (7-18); GFR African American 19 mL/min; GFR Non-African American 16 mL/min
[2022-05-26 11:52] LABS: Alanine Aminotransferase 21 U/L (13-56); Alkaline Phosphatase 172 U/L (45-117); Aspartate Aminotransferase 36 U/L (15-37); Calcium 7.1 mg/dL (8.5-10.1); Glucose > 500 mg/dL (74-106); Phosphorus 3.8 mg/dL (2.5-4.90)
[2022-05-26 11:53] LABS: Albumin 2.1 g/dL (3.4-5.0); Bilirubin, Total 0.7 mg/dL (0.2-1.0); Magnesium 2.3 mg/dL (1.6-2.6); Total Protein 4.9 g/dL (6.4-8.2); Triglycerides 213 mg/dL (< 150)
[2022-05-26] MEDS: SODIUM FERR GLUC 62.5MG/5ML 125 MG in SODIUM CHL 0.9% 100 ML IV SCH (12:00)
[2022-05-26 14:13] LABS: Basophils # (auto) 0.1 10 ^3/uL (0-0.2); Eosinophils # (auto) 0.3 10 ^3/uL (0-0.8); Nucleated Red Blood Cells % 0.1 %; White Blood Cell 14.1 10^3/uL (4.4-10.8)
[2022-05-26 14:16] LABS: Eosinophils % (auto) 2.3 % (0.0-7.0); Hematocrit 19.5 % (36.0-46.0); Lymphocytes % (auto) 28.6 % (10.0-50.0); Mean Corpuscular Hgb Conc. 33.3 g/dL (32.0-36.0); Monocytes # (auto) 0.6 10 ^3/uL (0-1.3); Monocytes % (auto) 4.3 % (0.0-12.0); Neutrophils % (auto) 63.8 % (37.0-80.0); Red Blood Cells 2.09 10^6/uL (4.0-5.20); Red Cell Distribution Width 15.6 % (11.8-14.3)
[2022-05-26 14:24] LABS: Albumin 2.4 g/dL (3.4-5.0); Calcium 7.5 mg/dL (8.5-10.1); Potassium 4.5 mmol/L (3.5-5.1)
[2022-05-26 14:27] LABS: BUN/Creatinine Ratio 29.6; Bilirubin, Total 0.8 mg/dL (0.2-1.0); Total Protein 5.4 g/dL (6.4-8.2)
[2022-05-26 14:44] LABS: Hemoglobin 6.5 g/dL (12.2-16.2)
[2022-05-26] MEDS: hydrALAZINE HCL 20 MG/ML VL IV PRN (16:53)
[2022-05-26] MEDS: DOPamine 1600MCG/ML D5W 250 ML IV SCH (17:06)
[2022-05-26] MEDS: LATANOPROST 0.005 % OPTH(EYE) SOL 2.5ML EACHEYE SCH (17:55)
[2022-05-26] MEDS ORDERED: TPN PER PHARMACY IV NR ×11 (20:00)
[2022-05-26] MEDS ORDERED: GLYCOPYRROLATE 0.2 MG/ML 1ML VIAL IV ONE (21:30)
[2022-05-27] VITALS (108 sets, daily range): BP systolic 121–170; BP diastolic 43–123
[2022-05-27] MEDS: hydrALAZINE HCL 20 MG/ML VL IV PRN (00:19)
[2022-05-27] MEDS: MIDAZOLAM DRIP 50 mg/50mL 50 ML IV SCH ×3 (05:16→16:25)
[2022-05-27] MEDS: fentaNYL Drip 2500mCg/250mlNS 250 ML IV SCH ×2 (05:16→08:00)
[2022-05-27] MEDS: BUMETANIDE 1mg/4ml VIAL (0.25mg/ml) IV SCH (05:28)
[2022-05-27] MEDS: ACCU-CHEK COMFORT CURVE STRIP VI SCH ×3 (05:28→17:48)
[2022-05-27] MEDS: InsuLIN REG 1unit/0.01ml Soln (100units/ml) SC SCH ×3 (05:29→17:47)
[2022-05-27] MEDS: NOREPINEPHRINE 8 MG/250ML KIT 250 ML IV SCH (08:00)
[2022-05-27 08:19] LABS: Basophils # (auto) 0.1 10 ^3/uL (0-0.2); Eosinophils # (auto) 0.4 10 ^3/uL (0-0.8); Eosinophils % (auto) 2.3 % (0.0-7.0); Hematocrit 21.7 % (36.0-46.0); Hemoglobin 7.5 g/dL (12.2-16.2); Lymphocytes # (auto) 4.2 10 ^3/uL (0.4-5.4); Mean Corpuscular Hgb Conc. 34.7 g/dL (32.0-36.0); Monocytes # (auto) 0.8 10 ^3/uL (0-1.3); Neutrophils % (auto) 65.8 % (37.0-80.0)
[2022-05-27 08:26] LABS: Basophils % (auto) 0.5 % (0.0-2.0); Lymphocytes % (auto) 26.5 % (10.0-50.0); Mean Corpuscular Hemoglobin 30.8 pg (28.0-32.0); Mean Corpuscular Volume 88.9 fL (80.0-100.0); Monocytes % (auto) 4.9 % (0.0-12.0); Neutrophils # (auto) 10.5 10 ^3/uL (1.6-8.6); Nucleated Red Blood Cells % 0.1 %; Red Blood Cells 2.44 10^6/uL (4.0-5.20); Red Cell Distribution Width 15.3 % (11.8-14.3); White Blood Cell 15.9 10^3/uL (4.4-10.8)
[2022-05-27 08:32] LABS: INR 1.2 (0.9-1.15); Partial Thromboplastin Time 31.6 sec (24.6-33.4)
[2022-05-27 08:39] LABS: Albumin 2.4 g/dL (3.4-5.0); Calcium 7.6 mg/dL (8.5-10.1); Phosphorus 2.6 mg/dL (2.5-4.90); Potassium 4.2 mmol/L (3.5-5.1)
[2022-05-27 08:41] LABS: Total Protein 5.6 g/dL (6.4-8.2)
[2022-05-27] MEDS: DOXYCYCLINE 100MG/250ML 250 ML IV SCH ×2 (09:35→21:06)
[2022-05-27] MEDS: CHOLECALCIFEROL (VITD3) 1,000UNIT=25mCg TAB PO SCH (10:00)
[2022-05-27] MEDS: PANTOPRAZOLE 40 MG/10 ML VIAL INJ IV SCH ×2 (10:13→21:06)
[2022-05-27] MEDS: DORZOLAMIDE EACHEYE SCH ×2 (10:14→21:06)
[2022-05-27] MEDS: TIMOLOL EACHEYE SCH ×2 (10:14→21:06)
[2022-05-27] MEDS: SODIUM CHLOR 0.9% PF (SALINE LOCK) 10ML VIAL/SYR IV SCH ×2 (10:15→21:06)
[2022-05-27] MEDS: MICAFUNGIN SODIUM 100 MG in SODIUM CHL 0.9% 100 ML IV SCH (10:16)
[2022-05-27] MEDS: INSULIN LANTUS (GLARGINE) 1 /0.01ml (100units/ml) SC SCH (10:19)
[2022-05-27] MEDS: SODIUM FERR GLUC 62.5MG/5ML 125 MG in SODIUM CHL 0.9% 100 ML IV SCH (12:53)
[2022-05-27] MEDS: BUMETANIDE INJECTION 25 MG in GIVE UN-DILUTED 0 ML IV SCH (17:23)
[2022-05-27] MEDS: LATANOPROST 0.005 % OPTH(EYE) SOL 2.5ML EACHEYE SCH (17:23)
[2022-05-27] MEDS ORDERED: TPN PER PHARMACY IV NR ×11 (20:00)
[2022-05-28] VITALS (106 sets, daily range): BP systolic 118–176; BP diastolic 41–85
[2022-05-28] MEDS: ACCU-CHEK COMFORT CURVE STRIP VI SCH ×4 (00:37→18:05)
[2022-05-28] MEDS: MIDAZOLAM DRIP 50 mg/50mL 50 ML IV SCH ×3 (01:16→19:05)
[2022-05-28 05:22] LABS: Basophils # (auto) 0.1 10 ^3/uL (0-0.2); Eosinophils # (auto) 0.4 10 ^3/uL (0-0.8); Monocytes # (auto) 0.7 10 ^3/uL (0-1.3); Neutrophils # (auto) 8.1 10 ^3/uL (1.6-8.6); White Blood Cell 13.1 10^3/uL (4.4-10.8)
[2022-05-28 05:23] LABS: Basophils % (auto) 0.6 % (0.0-2.0); Eosinophils % (auto) 2.9 % (0.0-7.0); Hematocrit 22.4 % (36.0-46.0); Hemoglobin 7.8 g/dL (12.2-16.2); Lymphocytes # (auto) 3.8 10 ^3/uL (0.4-5.4); Lymphocytes % (auto) 28.9 % (10.0-50.0); Mean Corpuscular Hemoglobin 31.2 pg (28.0-32.0); Mean Corpuscular Hgb Conc. 34.8 g/dL (32.0-36.0); Mean Corpuscular Volume 89.5 fL (80.0-100.0); Monocytes % (auto) 5.4 % (0.0-12.0); Neutrophils % (auto) 62.2 % (37.0-80.0); Nucleated Red Blood Cells % 0.1 %; Red Blood Cells 2.51 10^6/uL (4.0-5.20); Red Cell Distribution Width 15.1 % (11.8-14.3)
[2022-05-28 05:37] LABS: Albumin 2.1 g/dL (3.4-5.0); Calcium 7.3 mg/dL (8.5-10.1); Magnesium 1.6 mg/dL (1.6-2.6); Potassium 4.1 mmol/L (3.5-5.1)
[2022-05-28 05:41] LABS: BUN/Creatinine Ratio 34.2; Bilirubin, Total 0.7 mg/dL (0.2-1.0); Phosphorus 3.2 mg/dL (2.5-4.90); Total Protein 4.6 g/dL (6.4-8.2)
[2022-05-28] MEDS: InsuLIN REG 1unit/0.01ml Soln (100units/ml) SC SCH ×4 (06:17→18:05)
[2022-05-28] MEDS: fentaNYL Drip 2500mCg/250mlNS 250 ML IV SCH (06:18)
[2022-05-28] MEDS: NOREPINEPHRINE 8 MG/250ML KIT 250 ML IV SCH (08:00)
[2022-05-28] MEDS: DOXYCYCLINE 100MG/250ML 250 ML IV SCH ×2 (09:53→20:45)
[2022-05-28] MEDS: TIMOLOL EACHEYE SCH ×2 (10:35→22:15)
[2022-05-28] MEDS: DORZOLAMIDE EACHEYE SCH ×2 (10:35→22:15)
[2022-05-28] MEDS: PANTOPRAZOLE 40 MG/10 ML VIAL INJ IV SCH ×2 (10:35→22:15)
[2022-05-28] MEDS: SODIUM CHLOR 0.9% PF (SALINE LOCK) 10ML VIAL/SYR IV SCH ×2 (10:36→22:15)
[2022-05-28] MEDS: INSULIN LANTUS (GLARGINE) 1 /0.01ml (100units/ml) SC SCH (10:36)
[2022-05-28] MEDS: MICAFUNGIN SODIUM 100 MG in SODIUM CHL 0.9% 100 ML IV SCH (12:06)
[2022-05-28] MEDS: SODIUM FERR GLUC 62.5MG/5ML 125 MG in SODIUM CHL 0.9% 100 ML IV SCH (13:42)
[2022-05-28] MEDS: hydrALAZINE HCL 20 MG/ML VL IV PRN (14:40)
[2022-05-28] MEDS: BUMETANIDE INJECTION 25 MG in GIVE UN-DILUTED 0 ML IV SCH (14:40)
[2022-05-28] MEDS: LATANOPROST 0.005 % OPTH(EYE) SOL 2.5ML EACHEYE SCH (18:05)
[2022-05-28] MEDS ORDERED: TPN PER PHARMACY IV NR ×11 (20:00)
[2022-05-29] VITALS (103 sets, daily range): BP systolic 135–188; BP diastolic 45–74
[2022-05-29] MEDS: MIDAZOLAM DRIP 50 mg/50mL 50 ML IV SCH ×2 (04:51→14:35)
[2022-05-29 05:36] LABS: Basophils # (auto) 0 10 ^3/uL (0-0.2); Basophils % (auto) 0.4 % (0.0-2.0); Eosinophils # (auto) 0.4 10 ^3/uL (0-0.8); Eosinophils % (auto) 3.2 % (0.0-7.0); Hemoglobin 7.7 g/dL (12.2-16.2); Monocytes # (auto) 0.6 10 ^3/uL (0-1.3); Neutrophils # (auto) 7.4 10 ^3/uL (1.6-8.6)
[2022-05-29 05:38] LABS: Hematocrit 22.8 % (36.0-46.0); Lymphocytes # (auto) 3.6 10 ^3/uL (0.4-5.4); Lymphocytes % (auto) 29.8 % (10.0-50.0); Mean Corpuscular Hemoglobin 30.7 pg (28.0-32.0); Mean Corpuscular Hgb Conc. 33.8 g/dL (32.0-36.0); Mean Corpuscular Volume 90.7 fL (80.0-100.0); Neutrophils % (auto) 61.6 % (37.0-80.0); Red Blood Cells 2.52 10^6/uL (4.0-5.20); Red Cell Distribution Width 15.2 % (11.8-14.3); White Blood Cell 12.1 10^3/uL (4.4-10.8)
[2022-05-29 05:43] LABS: Calcium 7.4 mg/dL (8.5-10.1)
[2022-05-29 05:49] LABS: BUN/Creatinine Ratio 35.8; Bilirubin, Total 0.6 mg/dL (0.2-1.0); Magnesium 1.8 mg/dL (1.6-2.6); Phosphorus 3.7 mg/dL (2.5-4.90); Total Protein 4.8 g/dL (6.4-8.2)
[2022-05-29] MEDS: ACCU-CHEK COMFORT CURVE STRIP VI SCH ×4 (06:00→18:06)
[2022-05-29] MEDS: InsuLIN REG 1unit/0.01ml Soln (100units/ml) SC SCH ×4 (06:30→18:08)
[2022-05-29] MEDS: NOREPINEPHRINE 8 MG/250ML KIT 250 ML IV SCH (08:00)
[2022-05-29] MEDS: fentaNYL Drip 2500mCg/250mlNS 250 ML IV SCH (08:00)
[2022-05-29] MEDS: DOXYCYCLINE 100MG/250ML 250 ML IV SCH ×2 (08:57→21:00)
[2022-05-29] MEDS: hydrALAZINE HCL 20 MG/ML VL IV PRN (09:34)
[2022-05-29] MEDS: SODIUM CHLOR 0.9% PF (SALINE LOCK) 10ML VIAL/SYR IV SCH ×2 (10:00→21:39)
[2022-05-29] MEDS: PANTOPRAZOLE 40 MG/10 ML VIAL INJ IV SCH ×2 (11:05→21:39)
[2022-05-29] MEDS: MICAFUNGIN SODIUM 100 MG in SODIUM CHL 0.9% 100 ML IV SCH (11:05)
[2022-05-29] MEDS: DORZOLAMIDE EACHEYE SCH ×2 (11:16→21:36)
[2022-05-29] MEDS: TIMOLOL EACHEYE SCH ×2 (11:16→21:36)
[2022-05-29] MEDS: INSULIN LANTUS (GLARGINE) 1 /0.01ml (100units/ml) SC SCH (11:38)
[2022-05-29] MEDS: SODIUM FERR GLUC 62.5MG/5ML 125 MG in SODIUM CHL 0.9% 100 ML IV SCH (14:31)
[2022-05-29 14:47] LABS: Hepatitis A Ab IgM Negative; Hepatitis B Core IgM Negative
[2022-05-29 14:48] LABS: Hepatitis C Antibody Negative (Negative)
[2022-05-29] MEDS: LATANOPROST 0.005 % OPTH(EYE) SOL 2.5ML EACHEYE SCH (18:06)
[2022-05-29] MEDS: BUMETANIDE INJECTION 25 MG in GIVE UN-DILUTED 0 ML IV SCH (18:07)
[2022-05-29] MEDS ORDERED: [UNRECOGNIZED DRUG - OTHER] IV NR ×10 (20:00)
[2022-05-29] MEDS ORDERED: SODIUM PHOSPHATES IV NR ×10 (20:00)
[2022-05-29] MEDS ORDERED: SODIUM CHLORIDE IV NR ×10 (20:00)
[2022-05-29] MEDS ORDERED: FAT EMULSION IV NR ×10 (20:00)
[2022-05-30] VITALS (95 sets, daily range): BP systolic 121–180; BP diastolic 48–84
[2022-05-30] MEDS: ACCU-CHEK COMFORT CURVE STRIP VI SCH ×4 (05:36→17:26)
[2022-05-30] MEDS: InsuLIN REG 1unit/0.01ml Soln (100units/ml) SC SCH ×4 (06:09→17:45)
[2022-05-30 06:22] LABS: Basophils # (auto) 0.1 10 ^3/uL (0-0.2); Basophils % (auto) 0.9 % (0.0-2.0); Eosinophils # (auto) 0.3 10 ^3/uL (0-0.8); Eosinophils % (auto) 2.9 % (0.0-7.0); Hemoglobin 8.5 g/dL (12.2-16.2); Lymphocytes # (auto) 3.2 10 ^3/uL (0.4-5.4); Lymphocytes % (auto) 26.7 % (10.0-50.0); Mean Corpuscular Hemoglobin 30.7 pg (28.0-32.0); Mean Corpuscular Hgb Conc. 34.1 g/dL (32.0-36.0); Mean Corpuscular Volume 89.9 fL (80.0-100.0); Monocytes # (auto) 0.4 10 ^3/uL (0-1.3); Monocytes % (auto) 3.3 % (0.0-12.0); Neutrophils # (auto) 7.9 10 ^3/uL (1.6-8.6); Neutrophils % (auto) 66.2 % (37.0-80.0); Nucleated Red Blood Cells % 0.1 %; Red Blood Cells 2.78 10^6/uL (4.0-5.20); Red Cell Distribution Width 15.2 % (11.8-14.3)
[2022-05-30 06:53] LABS: Albumin 2.1 g/dL (3.4-5.0); BUN/Creatinine Ratio 38.3; Bilirubin, Total 0.6 mg/dL (0.2-1.0); Calcium 7.6 mg/dL (8.5-10.1); Magnesium 1.8 mg/dL (1.6-2.6); Phosphorus 4.1 mg/dL (2.5-4.90); Total Protein 5.2 g/dL (6.4-8.2)
[2022-05-30] MEDS: DOXYCYCLINE 100MG/250ML 250 ML IV SCH ×2 (07:45→20:05)
[2022-05-30] MEDS: fentaNYL Drip 2500mCg/250mlNS 250 ML IV SCH (08:00)
[2022-05-30] MEDS: NOREPINEPHRINE 8 MG/250ML KIT 250 ML IV SCH (08:00)
[2022-05-30] MEDS: INSULIN LANTUS (GLARGINE) 1 /0.01ml (100units/ml) SC SCH (10:00)
[2022-05-30] MEDS: DORZOLAMIDE EACHEYE SCH ×2 (10:34→22:37)
[2022-05-30] MEDS: TIMOLOL EACHEYE SCH ×2 (10:34→22:37)
[2022-05-30] MEDS: MICAFUNGIN SODIUM 100 MG in SODIUM CHL 0.9% 100 ML IV SCH (10:35)
[2022-05-30] MEDS: PANTOPRAZOLE 40 MG/10 ML VIAL INJ IV SCH ×2 (10:35→22:37)
[2022-05-30] MEDS: SODIUM CHLOR 0.9% PF (SALINE LOCK) 10ML VIAL/SYR IV SCH ×2 (10:35→22:38)
[2022-05-30] MEDS: SODIUM FERR GLUC 62.5MG/5ML 125 MG in SODIUM CHL 0.9% 100 ML IV SCH (12:00)
[2022-05-30] MEDS: BUMETANIDE INJECTION 25 MG in GIVE UN-DILUTED 0 ML IV SCH (13:20)
[2022-05-30] MEDS: MIDAZOLAM DRIP 50 mg/50mL 50 ML IV SCH (14:28)
[2022-05-30] MEDS: LATANOPROST 0.005 % OPTH(EYE) SOL 2.5ML EACHEYE SCH (17:26)
[2022-05-30] MEDS ORDERED: FAT EMULSION IV NR ×11 (20:00)
[2022-05-30] MEDS ORDERED: SODIUM ACETATE IV NR ×11 (20:00)
[2022-05-30] MEDS ORDERED: [UNRECOGNIZED DRUG - OTHER] IV NR ×11 (20:00)
[2022-05-30] MEDS ORDERED: SODIUM CHLORIDE IV NR ×11 (20:00)
[2022-05-30] MEDS: hydrALAZINE HCL 20 MG/ML VL IV PRN (21:40)
[2022-05-31] VITALS (96 sets, daily range): BP systolic 128–173; BP diastolic 45–71
[2022-05-31] MEDS: ACCU-CHEK COMFORT CURVE STRIP VI SCH ×3 (00:57→13:16)
[2022-05-31] MEDS: InsuLIN REG 1unit/0.01ml Soln (100units/ml) SC SCH ×3 (00:58→13:16)
[2022-05-31] MEDS: hydrALAZINE HCL 20 MG/ML VL IV PRN ×2 (05:46→14:22)
[2022-05-31 07:12] LABS: Basophils # (auto) 0.1 10 ^3/uL (0-0.2); Eosinophils # (auto) 0.2 10 ^3/uL (0-0.8); Hemoglobin 8.8 g/dL (12.2-16.2); Monocytes # (auto) 0.3 10 ^3/uL (0-1.3)
[2022-05-31 07:13] LABS: Basophils % (auto) 0.9 % (0.0-2.0); Eosinophils % (auto) 1.8 % (0.0-7.0); Hematocrit 26.4 % (36.0-46.0); Lymphocytes % (auto) 23.3 % (10.0-50.0); Mean Corpuscular Hemoglobin 32.2 pg (28.0-32.0); Mean Corpuscular Hgb Conc. 33.3 g/dL (32.0-36.0); Mean Corpuscular Volume 96.8 fL (80.0-100.0); Monocytes % (auto) 3.3 % (0.0-12.0); Neutrophils # (auto) 6.1 10 ^3/uL (1.6-8.6); Neutrophils % (auto) 70.7 % (37.0-80.0); Nucleated Red Blood Cells % 0.5 %; Red Blood Cells 2.73 10^6/uL (4.0-5.20); Red Cell Distribution Width 15.4 % (11.8-14.3); White Blood Cell 8.6 10^3/uL (4.4-10.8)
[2022-05-31 07:15] LABS: Albumin 1.8 g/dL (3.4-5.0); Calcium 7.7 mg/dL (8.5-10.1); Magnesium 1.9 mg/dL (1.6-2.6); Potassium 3.4 mmol/L (3.5-5.1)
[2022-05-31 07:19] LABS: BUN/Creatinine Ratio 41.5; Bilirubin, Total 1.2 mg/dL (0.2-1.0); Phosphorus 4.3 mg/dL (2.5-4.90); Total Protein 4.9 g/dL (6.4-8.2)
[2022-05-31] MEDS: NOREPINEPHRINE 8 MG/250ML KIT 250 ML IV SCH (08:00)
[2022-05-31] MEDS: fentaNYL Drip 2500mCg/250mlNS 250 ML IV SCH (08:00)
[2022-05-31] MEDS ORDERED: Nepro With Carb Steady 1 Liter Bottle GT SCH (09:30)
[2022-05-31] MEDS: PANTOPRAZOLE 40 MG/10 ML VIAL INJ IV SCH ×2 (09:57→22:05)
[2022-05-31] MEDS: DOXYCYCLINE 100MG/250ML 250 ML IV SCH ×2 (09:58→20:59)
[2022-05-31] MEDS ORDERED: POTASSIUM CHL 20MEQ/100ML 100 ML IV ONE (10:00)
[2022-05-31] MEDS: DORZOLAMIDE EACHEYE SCH ×2 (10:09→22:05)
[2022-05-31] MEDS: TIMOLOL EACHEYE SCH ×2 (10:09→22:05)
[2022-05-31] MEDS: SODIUM CHLOR 0.9% PF (SALINE LOCK) 10ML VIAL/SYR IV SCH ×2 (10:10→22:05)
[2022-05-31] MEDS: INSULIN LANTUS (GLARGINE) 1 /0.01ml (100units/ml) SC SCH (10:23)
[2022-05-31] MEDS: MICAFUNGIN SODIUM 100 MG in SODIUM CHL 0.9% 100 ML IV SCH (16:46)
[2022-05-31] MEDS: SODIUM FERR GLUC 62.5MG/5ML 125 MG in SODIUM CHL 0.9% 100 ML IV SCH (16:47)
[2022-05-31] MEDS: LATANOPROST 0.005 % OPTH(EYE) SOL 2.5ML EACHEYE SCH (19:50)
[2022-05-31] MEDS ORDERED: SODIUM ACETATE IV NR ×12 (20:00)
[2022-05-31] MEDS ORDERED: [UNRECOGNIZED DRUG - OTHER] IV NR ×12 (20:00)
[2022-05-31] MEDS ORDERED: SODIUM CHLORIDE IV NR ×12 (20:00)
[2022-05-31] MEDS ORDERED: FAT EMULSION IV NR ×12 (20:00)
[2022-06-01] VITALS (85 sets, daily range): BP systolic 118–162; BP diastolic 42–71
[2022-06-01 05:11] LABS: Eosinophils # (auto) 0.2 10 ^3/uL (0-0.8); Hemoglobin 8.5 g/dL (12.2-16.2); Monocytes # (auto) 0.4 10 ^3/uL (0-1.3); Monocytes % (auto) 4.5 % (0.0-12.0)
[2022-06-01 05:14] LABS: Basophils # (auto) 0 10 ^3/uL (0-0.2); Basophils % (auto) 0.6 % (0.0-2.0); Eosinophils % (auto) 2.2 % (0.0-7.0); Hematocrit 24.2 % (36.0-46.0); Lymphocytes # (auto) 1.7 10 ^3/uL (0.4-5.4); Lymphocytes % (auto) 20.9 % (10.0-50.0); Mean Corpuscular Hemoglobin 31.6 pg (28.0-32.0); Mean Corpuscular Hgb Conc. 35.1 g/dL (32.0-36.0); Mean Corpuscular Volume 89.9 fL (80.0-100.0); Neutrophils % (auto) 71.8 % (37.0-80.0); Nucleated Red Blood Cells % 0.2 %; Red Blood Cells 2.69 10^6/uL (4.0-5.20); Red Cell Distribution Width 15.2 % (11.8-14.3); White Blood Cell 8.3 10^3/uL (4.4-10.8)
[2022-06-01 05:34] LABS: Albumin 1.7 g/dL (3.4-5.0); Calcium 7.9 mg/dL (8.5-10.1); Potassium 3.4 mmol/L (3.5-5.1)
[2022-06-01 05:36] LABS: Bilirubin, Total 1.9 mg/dL (0.2-1.0); Phosphorus 4.8 mg/dL (2.5-4.90); Total Protein 4.8 g/dL (6.4-8.2)
[2022-06-01] MEDS: MIDAZOLAM DRIP 50 mg/50mL 50 ML IV SCH (08:00)
[2022-06-01] MEDS: fentaNYL Drip 2500mCg/250mlNS 250 ML IV SCH (08:00)
[2022-06-01] MEDS: NOREPINEPHRINE 8 MG/250ML KIT 250 ML IV SCH (08:00)
[2022-06-01] MEDS: DOXYCYCLINE 100MG/250ML 250 ML IV SCH ×2 (08:14→20:22)
[2022-06-01] MEDS: INSULIN LANTUS (GLARGINE) 1 /0.01ml (100units/ml) SC SCH (10:00)
[2022-06-01] MEDS: SODIUM FERR GLUC 62.5MG/5ML 125 MG in SODIUM CHL 0.9% 100 ML IV SCH (12:00)
[2022-06-01] MEDS: PANTOPRAZOLE 40 MG/10 ML VIAL INJ IV SCH ×2 (12:44→21:39)
[2022-06-01] MEDS: DORZOLAMIDE EACHEYE SCH ×2 (12:44→21:39)
[2022-06-01] MEDS: TIMOLOL EACHEYE SCH ×2 (12:44→21:39)
[2022-06-01] MEDS: SODIUM CHLOR 0.9% PF (SALINE LOCK) 10ML VIAL/SYR IV SCH ×2 (12:44→21:39)
[2022-06-01] MEDS: LATANOPROST 0.005 % OPTH(EYE) SOL 2.5ML EACHEYE SCH (17:33)
[2022-06-01] MEDS ORDERED: MIDAZOLAM HCL 2MG/2ML 2ml VIAL (1mg/ml) IV PRN (17:45)
[2022-06-01] MEDS ORDERED: GLYCOPYRROLATE 0.2 MG/ML 1ML VIAL IV ONE (18:00)
[2022-06-01] MEDS ORDERED: GLYCOPYRROLATE 0.2 MG/ML 1ML VIAL IV PRN (18:30)
[2022-06-01] MEDS: SUCRALFATE 1 GM/10 ML ORAL SUSP GT SCH (18:31)
[2022-06-01] MEDS: hydrALAZINE HCL 20 MG/ML VL IV PRN (18:51)
[2022-06-01] MEDS ORDERED: EPOETIN ALFA-EPBX 4,000 UNIT/ML VIAL SC ONE (21:00)
[2022-06-02] VITALS (102 sets, daily range): BP systolic 121–168; BP diastolic 47–79
[2022-06-02 05:22] LABS: Basophils # (auto) 0.1 10 ^3/uL (0-0.2); Basophils % (auto) 1.2 % (0.0-2.0); Eosinophils # (auto) 0.1 10 ^3/uL (0-0.8); Eosinophils % (auto) 1.5 % (0.0-7.0); Hematocrit 24.5 % (36.0-46.0); Hemoglobin 8.5 g/dL (12.2-16.2); Lymphocytes % (auto) 21.1 % (10.0-50.0); Mean Corpuscular Hgb Conc. 34.7 g/dL (32.0-36.0); Mean Corpuscular Volume 89.4 fL (80.0-100.0); Monocytes # (auto) 0.6 10 ^3/uL (0-1.3); Monocytes % (auto) 5.9 % (0.0-12.0); Neutrophils # (auto) 6.5 10 ^3/uL (1.6-8.6); Neutrophils % (auto) 70.3 % (37.0-80.0); Nucleated Red Blood Cells % 0.1 %; Red Blood Cells 2.75 10^6/uL (4.0-5.20); White Blood Cell 9.3 10^3/uL (4.4-10.8)
[2022-06-02 05:35] LABS: Albumin 1.7 g/dL (3.4-5.0); Calcium 7.7 mg/dL (8.5-10.1); Potassium 3.1 mmol/L (3.5-5.1)
[2022-06-02 05:39] LABS: BUN/Creatinine Ratio 33.6; Bilirubin, Total 1.5 mg/dL (0.2-1.0); Total Protein 5.3 g/dL (6.4-8.2)
[2022-06-02] MEDS: SUCRALFATE 1 GM/10 ML ORAL SUSP GT SCH ×3 (06:20→18:38)
[2022-06-02] MEDS: hydrALAZINE HCL 20 MG/ML VL IV PRN ×2 (06:33→21:11)
[2022-06-02] MEDS: fentaNYL Drip 2500mCg/250mlNS 250 ML IV SCH (08:00)
[2022-06-02] MEDS: NOREPINEPHRINE 8 MG/250ML KIT 250 ML IV SCH (08:00)
[2022-06-02] MEDS: MIDAZOLAM DRIP 50 mg/50mL 50 ML IV SCH (08:00)
[2022-06-02] MEDS ORDERED: SODIUM CHL 0.9% 1000 ML BAG XX ONE (09:30)
[2022-06-02] MEDS: TIMOLOL EACHEYE SCH ×2 (10:00→22:08)
[2022-06-02] MEDS: DORZOLAMIDE EACHEYE SCH ×2 (10:00→22:08)
[2022-06-02] MEDS: SODIUM CHLOR 0.9% PF (SALINE LOCK) 10ML VIAL/SYR IV SCH ×2 (10:00→22:09)
[2022-06-02] MEDS: PANTOPRAZOLE 40 MG/10 ML VIAL INJ IV SCH ×2 (10:54→22:09)
[2022-06-02] MEDS: DOXYCYCLINE 100MG/250ML 250 ML IV SCH (10:55)
[2022-06-02] MEDS: INSULIN LANTUS (GLARGINE) 1 /0.01ml (100units/ml) SC SCH (11:26)
[2022-06-02] MEDS: SODIUM FERR GLUC 62.5MG/5ML 125 MG in SODIUM CHL 0.9% 100 ML IV SCH (13:03)
[2022-06-02] MEDS ORDERED: POTASSIUM EFFERVESENT TAB 25 MEQ GT ONE (15:00)
[2022-06-02] MEDS: LATANOPROST 0.005 % OPTH(EYE) SOL 2.5ML EACHEYE SCH (17:12)
[2022-06-02] MEDS ORDERED: EPOETIN ALFA-EPBX 10,000 UNIT/1ML VIAL SC ONE (21:00)
[2022-06-02] MEDS ORDERED: EPOETIN ALFA-EPBX 4,000 UNIT/ML VIAL SC ONE (21:00)
[2022-06-03] VITALS (104 sets, daily range): BP systolic 101–167; BP diastolic 45–79
[2022-06-03 06:05] LABS: Potassium 3.5 mmol/L (3.5-5.1)
[2022-06-03 06:08] LABS: BUN/Creatinine Ratio 29.1
[2022-06-03] MEDS: SUCRALFATE 1 GM/10 ML ORAL SUSP GT SCH ×3 (06:31→17:12)
[2022-06-03] MEDS: MIDAZOLAM DRIP 50 mg/50mL 50 ML IV SCH (08:00)
[2022-06-03] MEDS: NOREPINEPHRINE 8 MG/250ML KIT 250 ML IV SCH (08:00)
[2022-06-03] MEDS: fentaNYL Drip 2500mCg/250mlNS 250 ML IV SCH (08:00)
[2022-06-03] MEDS: PANTOPRAZOLE 40 MG/10 ML VIAL INJ IV SCH ×2 (08:13→22:10)
[2022-06-03] MEDS: SODIUM CHLOR 0.9% PF (SALINE LOCK) 10ML VIAL/SYR IV SCH ×2 (08:13→22:10)
[2022-06-03] MEDS: TIMOLOL EACHEYE SCH ×2 (08:15→22:10)
[2022-06-03] MEDS: INSULIN LANTUS (GLARGINE) 1 /0.01ml (100units/ml) SC SCH (08:15)
[2022-06-03] MEDS: DORZOLAMIDE EACHEYE SCH ×2 (08:15→22:10)
[2022-06-03] MEDS: Nepro With Carb Steady 1 Liter Bottle GT SCH (12:04)
[2022-06-03] MEDS: SODIUM FERR GLUC 62.5MG/5ML 125 MG in SODIUM CHL 0.9% 100 ML IV SCH (15:32)
[2022-06-03] MEDS: InsuLIN REG 1unit/0.01ml Soln (100units/ml) SC SCH (18:00)
[2022-06-03] MEDS: LATANOPROST 0.005 % OPTH(EYE) SOL 2.5ML EACHEYE SCH (18:13)
[2022-06-03] MEDS: ACCU-CHEK COMFORT CURVE STRIP VI SCH (18:13)
[2022-06-04] VITALS (105 sets, daily range): BP systolic 131–169; BP diastolic 51–75
[2022-06-04] MEDS: hydrALAZINE HCL 20 MG/ML VL IV PRN ×2 (01:41→13:23)
[2022-06-04] MEDS: InsuLIN REG 1unit/0.01ml Soln (100units/ml) SC SCH ×4 (06:00→18:00)
[2022-06-04] MEDS: ACCU-CHEK COMFORT CURVE STRIP VI SCH ×4 (06:30→18:37)
[2022-06-04] MEDS: SUCRALFATE 1 GM/10 ML ORAL SUSP GT SCH ×3 (07:30→18:37)
[2022-06-04 07:32] LABS: Basophils # (auto) 0.1 10 ^3/uL (0-0.2); Basophils % (auto) 0.5 % (0.0-2.0); Eosinophils # (auto) 0.1 10 ^3/uL (0-0.8); Monocytes # (auto) 1.3 10 ^3/uL (0-1.3); Nucleated Red Blood Cells % 0.2 %; White Blood Cell 14.9 10^3/uL (4.4-10.8)
[2022-06-04 07:35] LABS: Eosinophils % (auto) 0.8 % (0.0-7.0); Hemoglobin 8.9 g/dL (12.2-16.2); Lymphocytes # (auto) 3.3 10 ^3/uL (0.4-5.4); Lymphocytes % (auto) 22.2 % (10.0-50.0); Mean Corpuscular Hemoglobin 30.2 pg (28.0-32.0); Mean Corpuscular Hgb Conc. 32.9 g/dL (32.0-36.0); Mean Corpuscular Volume 91.8 fL (80.0-100.0); Monocytes % (auto) 8.6 % (0.0-12.0); Neutrophils # (auto) 10.1 10 ^3/uL (1.6-8.6); Neutrophils % (auto) 67.9 % (37.0-80.0); Red Blood Cells 2.94 10^6/uL (4.0-5.20)
[2022-06-04 07:48] LABS: Albumin 1.6 g/dL (3.4-5.0); Calcium 8.1 mg/dL (8.5-10.1); Potassium 3.4 mmol/L (3.5-5.1)
[2022-06-04 07:50] LABS: BUN/Creatinine Ratio 26.1
[2022-06-04] MEDS: MIDAZOLAM DRIP 50 mg/50mL 50 ML IV SCH (08:00)
[2022-06-04] MEDS: fentaNYL Drip 2500mCg/250mlNS 250 ML IV SCH (08:00)
[2022-06-04] MEDS: NOREPINEPHRINE 8 MG/250ML KIT 250 ML IV SCH (08:00)
[2022-06-04 08:05] LABS: Bilirubin, Total 1.2 mg/dL (0.2-1.0); Total Protein 4.8 g/dL (6.4-8.2)
[2022-06-04] MEDS: DORZOLAMIDE EACHEYE SCH ×2 (09:45→22:10)
[2022-06-04] MEDS: PANTOPRAZOLE 40 MG/10 ML VIAL INJ IV SCH ×2 (09:45→22:09)
[2022-06-04] MEDS: SODIUM CHLOR 0.9% PF (SALINE LOCK) 10ML VIAL/SYR IV SCH ×2 (09:45→22:10)
[2022-06-04] MEDS: TIMOLOL EACHEYE SCH ×2 (09:45→22:10)
[2022-06-04] MEDS: INSULIN LANTUS (GLARGINE) 1 /0.01ml (100units/ml) SC SCH (09:46)
[2022-06-04] MEDS ORDERED: FUROSEMIDE 100 MG/10ML VIAL IV ONE (12:45)
[2022-06-04] MEDS: SODIUM FERR GLUC 62.5MG/5ML 125 MG in SODIUM CHL 0.9% 100 ML IV SCH (12:53)
[2022-06-04] MEDS: LATANOPROST 0.005 % OPTH(EYE) SOL 2.5ML EACHEYE SCH (18:37)
[2022-06-05] VITALS (104 sets, daily range): BP systolic 123–161; BP diastolic 48–78
[2022-06-05 05:20] LABS: Calcium 8.4 mg/dL (8.5-10.1); Potassium 3.3 mmol/L (3.5-5.1)
[2022-06-05 05:22] LABS: BUN/Creatinine Ratio 24.4
[2022-06-05 05:41] LABS: Basophils # (auto) 0.1 10 ^3/uL (0-0.2); Basophils % (auto) 0.5 % (0.0-2.0); Eosinophils # (auto) 0.2 10 ^3/uL (0-0.8); Eosinophils % (auto) 1.1 % (0.0-7.0); Hematocrit 23.9 % (36.0-46.0); Hemoglobin 7.7 g/dL (12.2-16.2); Lymphocytes # (auto) 3.6 10 ^3/uL (0.4-5.4); Lymphocytes % (auto) 24.1 % (10.0-50.0); Mean Corpuscular Hemoglobin 29.9 pg (28.0-32.0); Mean Corpuscular Hgb Conc. 32.4 g/dL (32.0-36.0); Mean Corpuscular Volume 92.2 fL (80.0-100.0); Monocytes # (auto) 1.5 10 ^3/uL (0-1.3); Monocytes % (auto) 10.2 % (0.0-12.0); Neutrophils # (auto) 9.5 10 ^3/uL (1.6-8.6); Neutrophils % (auto) 64.1 % (37.0-80.0); Nucleated Red Blood Cells % 0.1 %; Red Blood Cells 2.59 10^6/uL (4.0-5.20); White Blood Cell 14.8 10^3/uL (4.4-10.8)
[2022-06-05] MEDS: ACCU-CHEK COMFORT CURVE STRIP VI SCH ×4 (05:56→17:40)
[2022-06-05] MEDS: InsuLIN REG 1unit/0.01ml Soln (100units/ml) SC SCH ×4 (05:56→17:41)
[2022-06-05] MEDS: SUCRALFATE 1 GM/10 ML ORAL SUSP GT SCH ×3 (06:02→17:39)
[2022-06-05] MEDS ORDERED: SODIUM CHL 0.9% 1000 ML BAG XX ONE (07:00)
[2022-06-05] MEDS: fentaNYL Drip 2500mCg/250mlNS 250 ML IV SCH (08:00)
[2022-06-05] MEDS: MIDAZOLAM DRIP 50 mg/50mL 50 ML IV SCH (08:00)
[2022-06-05] MEDS: NOREPINEPHRINE 8 MG/250ML KIT 250 ML IV SCH (08:00)
[2022-06-05] MEDS: TIMOLOL EACHEYE SCH ×2 (09:12→21:28)
[2022-06-05] MEDS: DORZOLAMIDE EACHEYE SCH ×2 (09:12→21:28)
[2022-06-05] MEDS: SODIUM CHLOR 0.9% PF (SALINE LOCK) 10ML VIAL/SYR IV SCH ×2 (09:13→21:28)
[2022-06-05] MEDS: INSULIN LANTUS (GLARGINE) 1 /0.01ml (100units/ml) SC SCH (09:15)
[2022-06-05] MEDS: PANTOPRAZOLE 40 MG/10 ML VIAL INJ IV SCH ×2 (09:17→21:28)
[2022-06-05] MEDS: SODIUM FERR GLUC 62.5MG/5ML 125 MG in SODIUM CHL 0.9% 100 ML IV SCH (13:26)
[2022-06-05] MEDS: LATANOPROST 0.005 % OPTH(EYE) SOL 2.5ML EACHEYE SCH (17:40)
[2022-06-05] MEDS ORDERED: EPOETIN ALFA-EPBX 10,000 UNIT/1ML VIAL SC ONE (21:00)
[2022-06-05 23:58] LABS: Eosinophils # (auto) 0.2 10 ^3/uL (0-0.8); Eosinophils % (auto) 1.2 % (0.0-7.0); Neutrophils # (auto) 7.7 10 ^3/uL (1.6-8.6); White Blood Cell 13.5 10^3/uL (4.4-10.8)
[2022-06-06] VITALS (91 sets, daily range): BP systolic 145–181; BP diastolic 52–81
[2022-06-06] MEDS: ACCU-CHEK COMFORT CURVE STRIP VI SCH ×4 (00:01→18:16)
[2022-06-06 00:02] LABS: Basophils # (auto) 0.1 10 ^3/uL (0-0.2); Basophils % (auto) 0.6 % (0.0-2.0); Hematocrit 25.2 % (36.0-46.0); Lymphocytes # (auto) 3.8 10 ^3/uL (0.4-5.4); Lymphocytes % (auto) 28.2 % (10.0-50.0); Mean Corpuscular Hemoglobin 29.5 pg (28.0-32.0); Mean Corpuscular Hgb Conc. 31.8 g/dL (32.0-36.0); Monocytes # (auto) 1.8 10 ^3/uL (0-1.3); Monocytes % (auto) 13.3 % (0.0-12.0); Neutrophils % (auto) 56.7 % (37.0-80.0); Nucleated Red Blood Cells % 0.2 %; Red Blood Cells 2.71 10^6/uL (4.0-5.20); Red Cell Distribution Width 17.6 % (11.8-14.3)
[2022-06-06 00:06] LABS: INR 1.22 (0.9-1.15); Partial Thromboplastin Time 32.1 sec (24.6-33.4)
[2022-06-06 00:09] LABS: Albumin 1.5 g/dL (3.4-5.0); BUN/Creatinine Ratio 18.3; Calcium 8.4 mg/dL (8.5-10.1); Potassium 3.5 mmol/L (3.5-5.1)
[2022-06-06 00:24] LABS: Bilirubin, Total 1.1 mg/dL (0.2-1.0); Total Protein 5.7 g/dL (6.4-8.2)
[2022-06-06] MEDS: InsuLIN REG 1unit/0.01ml Soln (100units/ml) SC SCH ×5 (06:00→23:43)
[2022-06-06] MEDS ORDERED: LIDOCAINE 1%HCL (LOCAL ANESTH) 10 ML MDV ONE (06:55)
[2022-06-06] MEDS: SUCRALFATE 1 GM/10 ML ORAL SUSP GT SCH ×3 (07:00→18:15)
[2022-06-06 07:10] LABS: INR 1.23 (0.9-1.15); Partial Thromboplastin Time 34.1 sec (24.6-33.4)
[2022-06-06] MEDS ORDERED: fentaNYL CITRATE 100 MCG/2 ML VL ONE ×2 (07:43→08:37)
[2022-06-06] MEDS ORDERED: MIDAZOLAM HCL 2MG/2ML 2ml VIAL (1mg/ml) ONE (07:43)
[2022-06-06] MEDS ORDERED: HYDROmorphone HCL 2 MG/ML VL/or syr ONE (07:43)
[2022-06-06] MEDS: fentaNYL Drip 2500mCg/250mlNS 250 ML IV SCH ×2 (07:55→21:32)
[2022-06-06] MEDS: NOREPINEPHRINE 8 MG/250ML KIT 250 ML IV SCH (07:55)
[2022-06-06] MEDS: MIDAZOLAM DRIP 50 mg/50mL 50 ML IV SCH (08:00)
[2022-06-06] MEDS ORDERED: DexAMETHasone SOD PHOS 10MG/1ML VIAL INJ ONE (08:37)
[2022-06-06] MEDS ORDERED: LIDOCAINE W/ EPINEPHRINE 1% 20ML VIAL ONE (08:37)
[2022-06-06] MEDS: PANTOPRAZOLE 40 MG/10 ML VIAL INJ IV SCH ×2 (10:25→21:01)
[2022-06-06] MEDS: SODIUM CHLOR 0.9% PF (SALINE LOCK) 10ML VIAL/SYR IV SCH ×2 (10:25→21:01)
[2022-06-06] MEDS: DORZOLAMIDE EACHEYE SCH ×2 (10:25→21:01)
[2022-06-06] MEDS: TIMOLOL EACHEYE SCH ×2 (10:25→21:01)
[2022-06-06] MEDS: INSULIN LANTUS (GLARGINE) 1 /0.01ml (100units/ml) SC SCH (10:35)
[2022-06-06] MEDS: hydrALAZINE HCL 20 MG/ML VL IV PRN ×2 (10:35→20:40)
[2022-06-06] MEDS ORDERED: BUMETANIDE 2.5mg/10ml (0.25 mg/ml) INJ IV ONE (11:00)
[2022-06-06] MEDS: SODIUM FERR GLUC 62.5MG/5ML 125 MG in SODIUM CHL 0.9% 100 ML IV SCH (13:12)
[2022-06-06] MEDS ORDERED: MICAFUNGIN SODIUM 100 MG in SODIUM CHL 0.9% 100 ML IV ONE (17:15)
[2022-06-06] MEDS: LATANOPROST 0.005 % OPTH(EYE) SOL 2.5ML EACHEYE SCH (18:15)
[2022-06-07] VITALS (43 sets, daily range): BP systolic 138–181; BP diastolic 60–84
[2022-06-07] MEDS: ACCU-CHEK COMFORT CURVE STRIP VI SCH ×5 (03:17→23:54)
[2022-06-07] MEDS: hydrALAZINE HCL 20 MG/ML VL IV PRN ×3 (05:35→18:30)
[2022-06-07] MEDS: InsuLIN REG 1unit/0.01ml Soln (100units/ml) SC SCH ×3 (05:36→18:00)
[2022-06-07 05:40] LABS: BUN/Creatinine Ratio 20.7; Calcium 8.2 mg/dL (8.5-10.1)
[2022-06-07 06:19] LABS: Basophils # (auto) 0.1 10 ^3/uL (0-0.2); Eosinophils # (auto) 0 10 ^3/uL (0-0.8); Eosinophils % (auto) 0.1 % (0.0-7.0); Hematocrit 25.9 % (36.0-46.0); Lymphocytes # (auto) 2.7 10 ^3/uL (0.4-5.4); Mean Corpuscular Hemoglobin 30.5 pg (28.0-32.0); Neutrophils % (auto) 57.9 % (37.0-80.0)
[2022-06-07 06:21] LABS: Lymphocytes % (auto) 24.4 % (10.0-50.0); Mean Corpuscular Volume 98.6 fL (80.0-100.0); Monocytes # (auto) 1.9 10 ^3/uL (0-1.3); Monocytes % (auto) 16.6 % (0.0-12.0); Neutrophils # (auto) 6.5 10 ^3/uL (1.6-8.6); Nucleated Red Blood Cells % 0.1 %; Red Blood Cells 2.63 10^6/uL (4.0-5.20); Red Cell Distribution Width 17.7 % (11.8-14.3); White Blood Cell 11.2 10^3/uL (4.4-10.8)
[2022-06-07] MEDS: SUCRALFATE 1 GM/10 ML ORAL SUSP GT SCH ×3 (06:40→18:27)
[2022-06-07] MEDS: NOREPINEPHRINE 8 MG/250ML KIT 250 ML IV SCH (08:00)
[2022-06-07] MEDS: MIDAZOLAM DRIP 50 mg/50mL 50 ML IV SCH (08:00)
[2022-06-07] MEDS: PANTOPRAZOLE 40 MG/10 ML VIAL INJ IV SCH ×2 (09:40→21:58)
[2022-06-07] MEDS: SODIUM CHLOR 0.9% PF (SALINE LOCK) 10ML VIAL/SYR IV SCH ×2 (09:40→21:58)
[2022-06-07] MEDS: MICAFUNGIN SODIUM 100 MG in SODIUM CHL 0.9% 100 ML IV SCH ×2 (09:41→10:26)
[2022-06-07] MEDS: TIMOLOL EACHEYE SCH ×2 (09:41→21:58)
[2022-06-07] MEDS: DORZOLAMIDE EACHEYE SCH ×2 (09:41→21:58)
[2022-06-07] MEDS: INSULIN LANTUS (GLARGINE) 1 /0.01ml (100units/ml) SC SCH (10:28)
[2022-06-07] MEDS: SODIUM FERR GLUC 62.5MG/5ML 125 MG in SODIUM CHL 0.9% 100 ML IV SCH (12:28)
[2022-06-07] MEDS: amLODIPine BESYLATE 5 MG TAB GT SCH (16:23)
[2022-06-07] MEDS: FREE WATER GT SCH ×3 (16:23→21:58)
[2022-06-07] MEDS: LATANOPROST 0.005 % OPTH(EYE) SOL 2.5ML EACHEYE SCH (18:27)
[2022-06-07] MEDS: MORPHINE SULFATE INJ 2 MG/ml SYRG IV PRN (23:54)
[2022-06-08] VITALS (57 sets, daily range): BP systolic 137–179; BP diastolic 63–80
[2022-06-08] MEDS: InsuLIN REG 1unit/0.01ml Soln (100units/ml) SC SCH ×4 (00:03→17:34)
[2022-06-08] MEDS: hydrALAZINE HCL 20 MG/ML VL IV PRN ×2 (00:35→17:40)
[2022-06-08] MEDS: FREE WATER GT SCH ×6 (02:00→20:21)
[2022-06-08] MEDS: ACCU-CHEK COMFORT CURVE STRIP VI SCH ×3 (06:21→17:34)
[2022-06-08] MEDS: SUCRALFATE 1 GM/10 ML ORAL SUSP GT SCH ×3 (06:23→17:12)
[2022-06-08 06:35] LABS: Hematocrit 28.5 % (36.0-46.0); Hemoglobin 9.1 g/dL (12.2-16.2); Mean Corpuscular Hemoglobin 30.3 pg (28.0-32.0); Mean Corpuscular Hgb Conc. 31.8 g/dL (32.0-36.0); Mean Corpuscular Volume 95.2 fL (80.0-100.0); Red Blood Cells 2.99 10^6/uL (4.0-5.20); Red Cell Distribution Width 17.8 % (11.8-14.3); White Blood Cell 15.1 10^3/uL (4.4-10.8)
[2022-06-08 06:44] LABS: Calcium 8.2 mg/dL (8.5-10.1); Potassium 3.5 mmol/L (3.5-5.1)
[2022-06-08 06:46] LABS: BUN/Creatinine Ratio 20.8
[2022-06-08 06:47] LABS: Basophils % (manual) 0 (0.0-2.0); Blast Cells 0; Myelocytes % 0; Promyelocytes % 0; Reactive Lymphocytes 0
[2022-06-08] MEDS ORDERED: SODIUM CHL 0.9% 1000 ML BAG XX ONE ×2 (07:00)
[2022-06-08 07:45] LABS: Band Neutrophils % (manual) 3; Eosinophils % (manual) 1 (0-7); Lymphocytes % (manual) 28 (10.0-50.0); Metamyelocytes % 2; Monocytes % (manual) 9 (0-12)
[2022-06-08] MEDS: NOREPINEPHRINE 8 MG/250ML KIT 250 ML IV SCH (08:00)
[2022-06-08] MEDS: MIDAZOLAM DRIP 50 mg/50mL 50 ML IV SCH (08:00)
[2022-06-08] MEDS: fentaNYL Drip 2500mCg/250mlNS 250 ML IV SCH (08:00)
[2022-06-08] MEDS: TIMOLOL EACHEYE SCH ×2 (10:00→21:41)
[2022-06-08] MEDS: DORZOLAMIDE EACHEYE SCH ×2 (10:00→21:41)
[2022-06-08] MEDS: PANTOPRAZOLE 40 MG/10 ML VIAL INJ IV SCH ×2 (11:35→20:21)
[2022-06-08] MEDS: SODIUM CHLOR 0.9% PF (SALINE LOCK) 10ML VIAL/SYR IV SCH ×2 (11:36→20:21)
[2022-06-08] MEDS: amLODIPine BESYLATE 5 MG TAB GT SCH (11:36)
[2022-06-08] MEDS: MICAFUNGIN SODIUM 100 MG in SODIUM CHL 0.9% 100 ML IV SCH (11:37)
[2022-06-08] MEDS: INSULIN LANTUS (GLARGINE) 1 /0.01ml (100units/ml) SC SCH (12:08)
[2022-06-08] MEDS: SODIUM FERR GLUC 62.5MG/5ML 125 MG in SODIUM CHL 0.9% 100 ML IV SCH (13:28)
[2022-06-08] MEDS: LATANOPROST 0.005 % OPTH(EYE) SOL 2.5ML EACHEYE SCH (17:36)
[2022-06-08] MEDS: MORPHINE SULFATE INJ 2 MG/ml SYRG IV PRN (20:23)
[2022-06-08] MEDS: Nepro With Carb Steady 1 Liter Bottle GT SCH (21:00)
[2022-06-08] MEDS ORDERED: EPOETIN ALFA-EPBX 10,000 UNIT/1ML VIAL SC ONE ×2 (21:00)
[2022-06-09] VITALS (66 sets, daily range): BP systolic 132–183; BP diastolic 51–84
[2022-06-09] MEDS: hydrALAZINE HCL 20 MG/ML VL IV PRN ×2 (00:23→21:05)
[2022-06-09] MEDS: FREE WATER GT SCH ×6 (02:00→21:31)
[2022-06-09] MEDS: InsuLIN REG 1unit/0.01ml Soln (100units/ml) SC SCH ×4 (05:13→17:59)
[2022-06-09] MEDS: ACCU-CHEK COMFORT CURVE STRIP VI SCH ×4 (05:14→17:59)
[2022-06-09 05:21] LABS: Mean Corpuscular Hemoglobin 30.5 pg (28.0-32.0)
[2022-06-09 05:24] LABS: BUN/Creatinine Ratio 17.3; Calcium 7.6 mg/dL (8.5-10.1); Potassium 3.4 mmol/L (3.5-5.1)
[2022-06-09 05:31] LABS: Hematocrit 25.3 % (36.0-46.0); Mean Corpuscular Hgb Conc. 31.8 g/dL (32.0-36.0); Mean Corpuscular Volume 96.1 fL (80.0-100.0); Red Blood Cells 2.63 10^6/uL (4.0-5.20); Red Cell Distribution Width 17.3 % (11.8-14.3); White Blood Cell 15.9 10^3/uL (4.4-10.8)
[2022-06-09 05:35] LABS: Basophils % (manual) 0 (0.0-2.0); Blast Cells 0; Eosinophils % (manual) 0 (0-7); Metamyelocytes % 0; Promyelocytes % 0; Reactive Lymphocytes 0
[2022-06-09] MEDS: SUCRALFATE 1 GM/10 ML ORAL SUSP GT SCH ×2 (06:12→11:24)
[2022-06-09] MEDS: fentaNYL Drip 2500mCg/250mlNS 250 ML IV SCH (08:00)
[2022-06-09] MEDS: MIDAZOLAM DRIP 50 mg/50mL 50 ML IV SCH (08:00)
[2022-06-09] MEDS: NOREPINEPHRINE 8 MG/250ML KIT 250 ML IV SCH (08:00)
[2022-06-09 08:24] LABS: Band Neutrophils % (manual) 12; Lymphocytes % (manual) 26 (10.0-50.0); Monocytes % (manual) 11 (0-12); Myelocytes % 1
[2022-06-09] MEDS ORDERED: FLUMAZENIL 0.1 MG/ML INJ 10ML MDV IV ONE (09:20)
[2022-06-09] MEDS ORDERED: NALOXONE HCL 0.4 MG/ML VIAL ONE (09:20)
[2022-06-09] MEDS: PANTOPRAZOLE 40 MG/10 ML VIAL INJ IV SCH ×2 (09:23→21:31)
[2022-06-09] MEDS: SODIUM CHLOR 0.9% PF (SALINE LOCK) 10ML VIAL/SYR IV SCH ×2 (09:23→21:31)
[2022-06-09] MEDS: amLODIPine BESYLATE 5 MG TAB GT SCH (09:24)
[2022-06-09] MEDS: DORZOLAMIDE EACHEYE SCH ×2 (09:25→21:30)
[2022-06-09] MEDS: TIMOLOL EACHEYE SCH ×2 (09:25→21:30)
[2022-06-09] MEDS: MICAFUNGIN SODIUM 100 MG in SODIUM CHL 0.9% 100 ML IV SCH (09:28)
[2022-06-09] MEDS: INSULIN LANTUS (GLARGINE) 1 /0.01ml (100units/ml) SC SCH (09:54)
[2022-06-09] MEDS ORDERED: LIDOCAINE VISCOUS 2% 15ML UD ONE (14:28)
[2022-06-09] MEDS: MIDAZOLAM HCL 2MG/2ML 2ml VIAL (1mg/ml) ONE ×2 (16:20→16:24)
[2022-06-09] MEDS: diphenhdrAMINE HCL 50 MG/1 ML VL ONE ×2 (16:20→16:27)
[2022-06-09] MEDS: fentaNYL CITRATE 100 MCG/2 ML VL ONE ×3 (16:20→16:27)
[2022-06-09] MEDS ORDERED: ceFAZolin 1GM/50ML 50 ML IV ONE ×2 (16:42→16:45)
[2022-06-09] MEDS: SODIUM FERR GLUC 62.5MG/5ML 125 MG in SODIUM CHL 0.9% 100 ML IV SCH (17:08)
[2022-06-09] MEDS: LATANOPROST 0.005 % OPTH(EYE) SOL 2.5ML EACHEYE SCH (17:59)
[2022-06-10] VITALS (51 sets, daily range): BP systolic 98–174; BP diastolic 56–110
[2022-06-10] MEDS: InsuLIN REG 1unit/0.01ml Soln (100units/ml) SC SCH ×4 (00:30→17:27)
[2022-06-10] MEDS: ACCU-CHEK COMFORT CURVE STRIP VI SCH ×4 (00:30→17:27)
[2022-06-10] MEDS: DEXTROSE (50%) 50ML SYRG IV PRN (00:35)
[2022-06-10] MEDS: FREE WATER GT SCH ×6 (02:00→22:00)
[2022-06-10] MEDS: hydrALAZINE HCL 20 MG/ML VL IV PRN (05:42)
[2022-06-10] MEDS ORDERED: SODIUM CHL 0.9% 1000 ML BAG XX ONE (07:00)
[2022-06-10] MEDS: SUCRALFATE 1 GM/10 ML ORAL SUSP GT SCH ×3 (07:00→11:38)
[2022-06-10] MEDS: NOREPINEPHRINE 8 MG/250ML KIT 250 ML IV SCH (07:47)
[2022-06-10] MEDS: MIDAZOLAM DRIP 50 mg/50mL 50 ML IV SCH (07:47)
[2022-06-10] MEDS: amLODIPine BESYLATE 5 MG TAB GT SCH (09:02)
[2022-06-10] MEDS: SODIUM CHLOR 0.9% PF (SALINE LOCK) 10ML VIAL/SYR IV SCH ×2 (09:03→21:38)
[2022-06-10] MEDS: INSULIN LANTUS (GLARGINE) 1 /0.01ml (100units/ml) SC SCH (09:03)
[2022-06-10] MEDS: TIMOLOL EACHEYE SCH ×2 (10:37→21:38)
[2022-06-10] MEDS: PANTOPRAZOLE 40 MG/10 ML VIAL INJ IV SCH ×2 (10:37→22:00)
[2022-06-10] MEDS: DORZOLAMIDE EACHEYE SCH ×2 (10:37→21:38)
[2022-06-10] MEDS: MICAFUNGIN SODIUM 100 MG in SODIUM CHL 0.9% 100 ML IV SCH (10:37)
[2022-06-10] MEDS: SODIUM FERR GLUC 62.5MG/5ML 125 MG in SODIUM CHL 0.9% 100 ML IV SCH (12:38)
[2022-06-10 13:10] LABS: Hematocrit 27.9 % (36.0-46.0); Hemoglobin 8.9 g/dL (12.2-16.2); Mean Corpuscular Hemoglobin 32.1 pg (28.0-32.0); Mean Corpuscular Hgb Conc. 31.8 g/dL (32.0-36.0); Red Blood Cells 2.77 10^6/uL (4.0-5.20); White Blood Cell 16.1 10^3/uL (4.4-10.8)
[2022-06-10 13:27] LABS: Albumin 1.7 g/dL (3.4-5.0); Calcium 7.7 mg/dL (8.5-10.1); Potassium 3.4 mmol/L (3.5-5.1)
[2022-06-10 13:30] LABS: BUN/Creatinine Ratio 16.5; Bilirubin, Total 0.9 mg/dL (0.2-1.0); Total Protein 5.6 g/dL (6.4-8.2)
[2022-06-10 13:34] LABS: Basophils % (manual) 0 (0.0-2.0); Blast Cells 0; Eosinophils % (manual) 0 (0-7); Metamyelocytes % 0; Myelocytes % 0; Promyelocytes % 0; Reactive Lymphocytes 0
[2022-06-10 14:49] LABS: Band Neutrophils % (manual) 15; Lymphocytes % (manual) 17 (10.0-50.0); Monocytes % (manual) 5 (0-12)
[2022-06-10] MEDS: LATANOPROST 0.005 % OPTH(EYE) SOL 2.5ML EACHEYE SCH (17:26)
[2022-06-10] MEDS ORDERED: EPOETIN ALFA-EPBX 10,000 UNIT/1ML VIAL SC ONE (21:00)
[2022-06-11] VITALS (43 sets, daily range): BP systolic 129–185; BP diastolic 53–95
[2022-06-11] MEDS: FREE WATER GT SCH ×6 (02:00→22:19)
[2022-06-11 05:02] LABS: Hemoglobin 8.2 g/dL (12.2-16.2)
[2022-06-11 05:09] LABS: Hematocrit 25.2 % (36.0-46.0); Mean Corpuscular Hemoglobin 31.4 pg (28.0-32.0); Mean Corpuscular Hgb Conc. 32.6 g/dL (32.0-36.0); Mean Corpuscular Volume 96.3 fL (80.0-100.0); Red Blood Cells 2.62 10^6/uL (4.0-5.20); Red Cell Distribution Width 17.6 % (11.8-14.3); White Blood Cell 15.6 10^3/uL (4.4-10.8)
[2022-06-11 05:26] LABS: BUN/Creatinine Ratio 15.6; Calcium 7.6 mg/dL (8.5-10.1); Potassium 3.5 mmol/L (3.5-5.1)
[2022-06-11 06:00] LABS: Basophils % (manual) 0 (0.0-2.0); Blast Cells 0; Eosinophils % (manual) 0 (0-7); Metamyelocytes % 0; Promyelocytes % 0; Reactive Lymphocytes 0
[2022-06-11] MEDS: InsuLIN REG 1unit/0.01ml Soln (100units/ml) SC SCH ×4 (06:00→17:33)
[2022-06-11] MEDS: ACCU-CHEK COMFORT CURVE STRIP VI SCH ×4 (06:00→17:33)
[2022-06-11 06:56] LABS: Band Neutrophils % (manual) 0; Lymphocytes % (manual) 21 (10.0-50.0); Monocytes % (manual) 1 (0-12); Myelocytes % 2
[2022-06-11] MEDS: SUCRALFATE 1 GM/10 ML ORAL SUSP GT SCH ×3 (07:00→17:32)
[2022-06-11] MEDS: NOREPINEPHRINE 8 MG/250ML KIT 250 ML IV SCH (07:13)
[2022-06-11] MEDS: MIDAZOLAM DRIP 50 mg/50mL 50 ML IV SCH (07:14)
[2022-06-11] MEDS: hydrALAZINE HCL 20 MG/ML VL IV PRN ×2 (07:23→17:39)
[2022-06-11] MEDS: MICAFUNGIN SODIUM 100 MG in SODIUM CHL 0.9% 100 ML IV SCH (08:24)
[2022-06-11] MEDS: PANTOPRAZOLE 40 MG/10 ML VIAL INJ IV SCH ×2 (08:24→22:26)
[2022-06-11] MEDS: amLODIPine BESYLATE 5 MG TAB GT SCH (08:25)
[2022-06-11] MEDS: SODIUM CHLOR 0.9% PF (SALINE LOCK) 10ML VIAL/SYR IV SCH ×2 (08:26→20:22)
[2022-06-11] MEDS: DORZOLAMIDE EACHEYE SCH ×2 (08:54→22:19)
[2022-06-11] MEDS: TIMOLOL EACHEYE SCH ×2 (08:54→22:19)
[2022-06-11] MEDS: INSULIN LANTUS (GLARGINE) 1 /0.01ml (100units/ml) SC SCH (08:55)
[2022-06-11] MEDS: SODIUM FERR GLUC 62.5MG/5ML 125 MG in SODIUM CHL 0.9% 100 ML IV SCH (11:57)
[2022-06-11] MEDS ORDERED: Nepro With Carb Steady 1 Liter Bottle GT SCH (12:00)
[2022-06-11] MEDS: LATANOPROST 0.005 % OPTH(EYE) SOL 2.5ML EACHEYE SCH (17:32)
[2022-06-12] VITALS (51 sets, daily range): BP systolic 113–176; BP diastolic 56–89
[2022-06-12] MEDS: ACCU-CHEK COMFORT CURVE STRIP VI SCH ×4 (00:19→17:54)
[2022-06-12] MEDS: FREE WATER GT SCH ×6 (02:00→21:57)
[2022-06-12] MEDS: SUCRALFATE 1 GM/10 ML ORAL SUSP GT SCH ×3 (07:00→17:25)
[2022-06-12] MEDS: InsuLIN REG 1unit/0.01ml Soln (100units/ml) SC SCH ×4 (07:00→17:49)
[2022-06-12] MEDS: MIDAZOLAM DRIP 50 mg/50mL 50 ML IV SCH (07:54)
[2022-06-12] MEDS: NOREPINEPHRINE 8 MG/250ML KIT 250 ML IV SCH (07:54)
[2022-06-12] MEDS: amLODIPine BESYLATE 5 MG TAB GT SCH (08:30)
[2022-06-12] MEDS: PANTOPRAZOLE 40 MG/10 ML VIAL INJ IV SCH ×2 (08:30→21:57)
[2022-06-12] MEDS: MICAFUNGIN SODIUM 100 MG in SODIUM CHL 0.9% 100 ML IV SCH (08:31)
[2022-06-12] MEDS: TIMOLOL EACHEYE SCH ×2 (08:32→21:57)
[2022-06-12] MEDS: DORZOLAMIDE EACHEYE SCH ×2 (08:32→21:57)
[2022-06-12] MEDS: SODIUM CHLOR 0.9% PF (SALINE LOCK) 10ML VIAL/SYR IV SCH ×2 (08:33→21:57)
[2022-06-12 09:37] LABS: Albumin 1.8 g/dL (3.4-5.0); Calcium 7.7 mg/dL (8.5-10.1); Potassium 3.2 mmol/L (3.5-5.1)
[2022-06-12 09:41] LABS: BUN/Creatinine Ratio 15.5; Bilirubin, Total 0.7 mg/dL (0.2-1.0); Total Protein 5.5 g/dL (6.4-8.2)
[2022-06-12] MEDS: INSULIN LANTUS (GLARGINE) 1 /0.01ml (100units/ml) SC SCH (10:00)
[2022-06-12] MEDS: MORPHINE SULFATE INJ 2 MG/ml SYRG IV PRN (10:40)
[2022-06-12] MEDS ORDERED: SODIUM CHL 0.9% 1000 ML BAG XX ONE (10:45)
[2022-06-12] MEDS ORDERED: POTASSIUM CHL 20MEQ/100ML 100 ML IV SCH (11:00)
[2022-06-12] MEDS: POTASSIUM CHL 20MEQ/100ML 100 ML IV SCH ×2 (11:31→13:00)
[2022-06-12 12:19] LABS: INR 1.2 (0.9-1.15)
[2022-06-12] MEDS ORDERED: MIDAZOLAM HCL 2MG/2ML 2ml VIAL (1mg/ml) ONE (13:40)
[2022-06-12] MEDS ORDERED: fentaNYL CITRATE 100 MCG/2 ML VL ONE (13:40)
[2022-06-12] MEDS ORDERED: LIDOCAINE 2%HCL (LOCAL ANESTH.) INJ 10ml MDV ONE (13:40)
[2022-06-12] MEDS: hydrALAZINE HCL 20 MG/ML VL IV PRN (13:50)
[2022-06-12] MEDS ORDERED: HEPARIN SODIUM (PORCINE) 5000 UNITS/ML 1ML VIAL ONE (14:02)
[2022-06-12] MEDS: SODIUM FERR GLUC 62.5MG/5ML 125 MG in SODIUM CHL 0.9% 100 ML IV SCH (18:13)
[2022-06-12] MEDS: LATANOPROST 0.005 % OPTH(EYE) SOL 2.5ML EACHEYE SCH (18:17)
[2022-06-12] MEDS ORDERED: EPOETIN ALFA-EPBX 10,000 UNIT/1ML VIAL SC ONE (21:00)
[2022-06-13] VITALS (58 sets, daily range): BP systolic 117–173; BP diastolic 54–98
[2022-06-13] MEDS: ACCU-CHEK COMFORT CURVE STRIP VI SCH ×4 (00:07→17:33)
[2022-06-13] MEDS: InsuLIN REG 1unit/0.01ml Soln (100units/ml) SC SCH ×4 (00:09→17:39)
[2022-06-13] MEDS: MORPHINE SULFATE INJ 2 MG/ml SYRG IV PRN (00:13)
[2022-06-13] MEDS: FREE WATER GT SCH ×6 (02:13→22:00)
[2022-06-13 05:27] LABS: Hematocrit 26.8 % (36.0-46.0); Hemoglobin 8.4 g/dL (12.2-16.2); Mean Corpuscular Hemoglobin 30.2 pg (28.0-32.0); Mean Corpuscular Hgb Conc. 31.3 g/dL (32.0-36.0); Mean Corpuscular Volume 96.7 fL (80.0-100.0); Red Blood Cells 2.77 10^6/uL (4.0-5.20); Red Cell Distribution Width 17.8 % (11.8-14.3); White Blood Cell 17.1 10^3/uL (4.4-10.8)
[2022-06-13 05:31] LABS: Basophils % (manual) 0 (0.0-2.0); Blast Cells 0; Eosinophils % (manual) 0 (0-7); Myelocytes % 0; Promyelocytes % 0
[2022-06-13 05:35] LABS: Albumin 1.9 g/dL (3.4-5.0); Calcium 7.9 mg/dL (8.5-10.1); Potassium 3.9 mmol/L (3.5-5.1)
[2022-06-13 05:39] LABS: BUN/Creatinine Ratio 12.7; Bilirubin, Total 0.7 mg/dL (0.2-1.0); Total Protein 5.1 g/dL (6.4-8.2)
[2022-06-13] MEDS: SUCRALFATE 1 GM/10 ML ORAL SUSP GT SCH ×3 (06:12→17:14)
[2022-06-13 07:49] LABS: Band Neutrophils % (manual) 8; Lymphocytes % (manual) 15 (10.0-50.0); Metamyelocytes % 5; Monocytes % (manual) 5 (0-12); Reactive Lymphocytes 3
[2022-06-13] MEDS ORDERED: VORICONAZOLE INJ 400 MG in D5W 5% 250 ML IV SCH (09:00)
[2022-06-13] MEDS: INSULIN LANTUS (GLARGINE) 1 /0.01ml (100units/ml) SC SCH (10:00)
[2022-06-13] MEDS ORDERED: SODIUM CHL 0.9% 1000 ML BAG XX ONE (10:15)
[2022-06-13] MEDS: PANTOPRAZOLE 40 MG/10 ML VIAL INJ IV SCH ×2 (10:44→22:33)
[2022-06-13] MEDS: APIXABAN 2.5 MG TAB PO SCH ×2 (10:44→22:33)
[2022-06-13] MEDS: amLODIPine BESYLATE 5 MG TAB GT SCH (10:45)
[2022-06-13] MEDS: SODIUM CHLOR 0.9% PF (SALINE LOCK) 10ML VIAL/SYR IV SCH ×2 (10:45→22:00)
[2022-06-13] MEDS: TIMOLOL EACHEYE SCH ×2 (10:45→22:00)
[2022-06-13] MEDS: DORZOLAMIDE EACHEYE SCH ×2 (10:45→22:00)
[2022-06-13] MEDS: VORICONAZOLE 50 MG TAB PO SCH ×2 (10:46→22:34)
[2022-06-13] MEDS: diphenhdrAMINE HCL 50 MG/1 ML VL IV PRN ×2 (10:50→16:35)
[2022-06-13] MEDS: TRIAMCINOLONE ACET 0.1% TOPICAL CREAM 15GM TOP SCH (12:30)
[2022-06-13] MEDS: SODIUM FERR GLUC 62.5MG/5ML 125 MG in SODIUM CHL 0.9% 100 ML IV SCH (12:30)
[2022-06-13] MEDS: LATANOPROST 0.005 % OPTH(EYE) SOL 2.5ML EACHEYE SCH (17:33)
[2022-06-13] MEDS: hydrALAZINE HCL 20 MG/ML VL IV PRN (22:42)
[2022-06-14] VITALS (46 sets, daily range): BP systolic 126–175; BP diastolic 51–85
[2022-06-14] MEDS: ACCU-CHEK COMFORT CURVE STRIP VI SCH ×4 (00:08→17:07)
[2022-06-14] MEDS: DEXTROSE (50%) 50ML SYRG IV PRN (00:27)
[2022-06-14] MEDS: FREE WATER GT SCH ×6 (01:52→22:22)
[2022-06-14] MEDS: InsuLIN REG 1unit/0.01ml Soln (100units/ml) SC SCH ×4 (06:00→19:00)
[2022-06-14 06:27] LABS: Hematocrit 28.1 % (36.0-46.0); Hemoglobin 9.2 g/dL (12.2-16.2); Mean Corpuscular Hemoglobin 31.9 pg (28.0-32.0); Mean Corpuscular Hgb Conc. 32.7 g/dL (32.0-36.0); Mean Corpuscular Volume 97.7 fL (80.0-100.0); Red Blood Cells 2.88 10^6/uL (4.0-5.20); Red Cell Distribution Width 17.3 % (11.8-14.3); White Blood Cell 21.7 10^3/uL (4.4-10.8)
[2022-06-14 06:32] LABS: BUN/Creatinine Ratio 12.2; Calcium 8.2 mg/dL (8.5-10.1); Potassium 3.8 mmol/L (3.5-5.1)
[2022-06-14] MEDS: SUCRALFATE 1 GM/10 ML ORAL SUSP GT SCH ×3 (06:43→17:06)
[2022-06-14 06:47] LABS: Basophils % (manual) 0 (0.0-2.0); Blast Cells 0; Myelocytes % 0; Promyelocytes % 0
[2022-06-14] MEDS ORDERED: SODIUM CHL 0.9% 1000 ML BAG XX ONE (07:00)
[2022-06-14 08:24] LABS: Band Neutrophils % (manual) 8; Eosinophils % (manual) 2 (0-7); Lymphocytes % (manual) 19 (10.0-50.0); Metamyelocytes % 1; Monocytes % (manual) 10 (0-12); Reactive Lymphocytes 4
[2022-06-14] MEDS ORDERED: VORICONAZOLE IV SCH (09:00)
[2022-06-14] MEDS ORDERED: D5W 5% IV SCH (09:00)
[2022-06-14] MEDS: SODIUM CHLOR 0.9% PF (SALINE LOCK) 10ML VIAL/SYR IV SCH ×2 (10:29→22:22)
[2022-06-14] MEDS: TIMOLOL EACHEYE SCH ×2 (10:29→22:22)
[2022-06-14] MEDS: DORZOLAMIDE EACHEYE SCH ×2 (10:29→22:22)
[2022-06-14] MEDS: PANTOPRAZOLE 40 MG/10 ML VIAL INJ IV SCH ×2 (10:30→22:21)
[2022-06-14] MEDS: TRIAMCINOLONE ACET 0.1% TOPICAL CREAM 15GM TOP SCH (10:30)
[2022-06-14] MEDS ORDERED: Nepro With Carb Steady 1 Liter Bottle GT SCH (11:00)
[2022-06-14] MEDS: APIXABAN 2.5 MG TAB PO SCH ×2 (13:54→22:21)
[2022-06-14] MEDS: amLODIPine BESYLATE 5 MG TAB GT SCH (13:54)
[2022-06-14] MEDS: VORICONAZOLE 50 MG TAB PO SCH ×2 (13:55→22:22)
[2022-06-14] MEDS: SODIUM FERR GLUC 62.5MG/5ML 125 MG in SODIUM CHL 0.9% 100 ML IV SCH (13:55)
[2022-06-14] MEDS: LATANOPROST 0.005 % OPTH(EYE) SOL 2.5ML EACHEYE SCH (17:06)
[2022-06-14] MEDS ORDERED: EPOETIN ALFA-EPBX 10,000 UNIT/1ML VIAL SC ONE (21:00)
[2022-06-14] MEDS: METOPROLOL TARTRATE 25 MG TAB PO SCH (22:20)
[2022-06-15] VITALS (37 sets, daily range): BP systolic 122–169; BP diastolic 46–78
[2022-06-15] MEDS: ACCU-CHEK COMFORT CURVE STRIP VI SCH ×4 (00:26→17:33)
[2022-06-15] MEDS: InsuLIN REG 1unit/0.01ml Soln (100units/ml) SC SCH ×4 (00:27→17:32)
[2022-06-15] MEDS: FREE WATER GT SCH ×6 (01:43→22:00)
[2022-06-15 05:05] LABS: Hemoglobin 8.9 g/dL (12.2-16.2)
[2022-06-15 05:07] LABS: Hematocrit 27.9 % (36.0-46.0); Mean Corpuscular Hemoglobin 31.3 pg (28.0-32.0); Mean Corpuscular Hgb Conc. 31.9 g/dL (32.0-36.0); Mean Corpuscular Volume 98.1 fL (80.0-100.0); Red Blood Cells 2.85 10^6/uL (4.0-5.20); Red Cell Distribution Width 17.2 % (11.8-14.3)
[2022-06-15 05:19] LABS: Calcium 7.7 mg/dL (8.5-10.1); Potassium 3.7 mmol/L (3.5-5.1)
[2022-06-15 05:24] LABS: Basophils % (manual) 0 (0.0-2.0); Blast Cells 0; Eosinophils % (manual) 0 (0-7); Metamyelocytes % 0; Myelocytes % 0; Promyelocytes % 0; Reactive Lymphocytes 0
[2022-06-15] MEDS: SUCRALFATE 1 GM/10 ML ORAL SUSP GT SCH ×3 (06:27→17:22)
[2022-06-15] MEDS: APIXABAN 2.5 MG TAB PO SCH ×2 (10:34→22:00)
[2022-06-15] MEDS: amLODIPine BESYLATE 5 MG TAB GT SCH (10:35)
[2022-06-15] MEDS: METOPROLOL TARTRATE 25 MG TAB PO SCH ×2 (10:35→22:00)
[2022-06-15] MEDS: DORZOLAMIDE EACHEYE SCH ×2 (10:36→22:00)
[2022-06-15] MEDS: SODIUM CHLOR 0.9% PF (SALINE LOCK) 10ML VIAL/SYR IV SCH ×2 (10:36→22:00)
[2022-06-15] MEDS: PANTOPRAZOLE 40 MG/10 ML VIAL INJ IV SCH ×2 (10:36→22:00)
[2022-06-15] MEDS: TIMOLOL EACHEYE SCH ×2 (10:36→22:00)
[2022-06-15] MEDS: TRIAMCINOLONE ACET 0.1% TOPICAL CREAM 15GM TOP SCH (10:37)
[2022-06-15] MEDS: VORICONAZOLE 50 MG TAB PO SCH ×2 (10:38→22:00)
[2022-06-15 11:41] LABS: Band Neutrophils % (manual) 2; Lymphocytes % (manual) 18 (10.0-50.0); Monocytes % (manual) 11 (0-12)
[2022-06-15] MEDS: SODIUM FERR GLUC 62.5MG/5ML 125 MG in SODIUM CHL 0.9% 100 ML IV SCH (14:29)
[2022-06-15] MEDS: LATANOPROST 0.005 % OPTH(EYE) SOL 2.5ML EACHEYE SCH (17:22)
[2022-06-15] MEDS ORDERED: ACETAMINOPHEN 650 mg PER 20.3 mL UD PO PRN (21:30)
[2022-06-16] VITALS (43 sets, daily range): BP systolic 131–179; BP diastolic 57–96
[2022-06-16] MEDS: diphenhdrAMINE HCL 50 MG/1 ML VL IV PRN ×2 (01:18→09:43)
[2022-06-16] MEDS: FREE WATER GT SCH ×5 (02:00→18:23)
[2022-06-16] MEDS: InsuLIN REG 1unit/0.01ml Soln (100units/ml) SC SCH ×4 (05:10→18:00)
[2022-06-16] MEDS: ACCU-CHEK COMFORT CURVE STRIP VI SCH ×4 (05:10→18:24)
[2022-06-16 05:29] LABS: Hemoglobin 7.8 g/dL (12.2-16.2)
[2022-06-16 05:30] LABS: Albumin 1.7 g/dL (3.4-5.0); Calcium 7.3 mg/dL (8.5-10.1); Hematocrit 24.8 % (36.0-46.0); Mean Corpuscular Hemoglobin 30.2 pg (28.0-32.0); Mean Corpuscular Hgb Conc. 31.4 g/dL (32.0-36.0); Mean Corpuscular Volume 96.2 fL (80.0-100.0); Potassium 3.2 mmol/L (3.5-5.1); Red Blood Cells 2.58 10^6/uL (4.0-5.20); Red Cell Distribution Width 17.4 % (11.8-14.3); White Blood Cell 22.7 10^3/uL (4.4-10.8)
[2022-06-16 05:33] LABS: BUN/Creatinine Ratio 11.5; Bilirubin, Total 0.4 mg/dL (0.2-1.0); Total Protein 5.2 g/dL (6.4-8.2)
[2022-06-16] MEDS: SUCRALFATE 1 GM/10 ML ORAL SUSP GT SCH ×3 (05:35→18:25)
[2022-06-16 05:42] LABS: Basophils % (manual) 0 (0.0-2.0); Blast Cells 0; Eosinophils % (manual) 0 (0-7); Metamyelocytes % 0; Myelocytes % 0; Promyelocytes % 0; Reactive Lymphocytes 0
[2022-06-16] MEDS ORDERED: SODIUM CHL 0.9% 1000 ML BAG XX ONE (07:00)
[2022-06-16 08:06] LABS: Band Neutrophils % (manual) 4; Lymphocytes % (manual) 18 (10.0-50.0); Monocytes % (manual) 10 (0-12)
[2022-06-16] MEDS: SODIUM CHLOR 0.9% PF (SALINE LOCK) 10ML VIAL/SYR IV SCH (09:37)
[2022-06-16] MEDS: PANTOPRAZOLE 40 MG/10 ML VIAL INJ IV SCH (09:37)
[2022-06-16] MEDS: APIXABAN 2.5 MG TAB PO SCH (09:38)
[2022-06-16] MEDS: amLODIPine BESYLATE 5 MG TAB GT SCH (09:38)
[2022-06-16] MEDS: METOPROLOL TARTRATE 25 MG TAB PO SCH (09:39)
[2022-06-16] MEDS: TRIAMCINOLONE ACET 0.1% TOPICAL CREAM 15GM TOP SCH (09:40)
[2022-06-16] MEDS: VORICONAZOLE 50 MG TAB PO SCH (09:40)
[2022-06-16] MEDS: TIMOLOL EACHEYE SCH (09:41)
[2022-06-16] MEDS: DORZOLAMIDE EACHEYE SCH (09:41)
[2022-06-16] MEDS: SODIUM FERR GLUC 62.5MG/5ML 125 MG in SODIUM CHL 0.9% 100 ML IV SCH (12:18)
[2022-06-16] MEDS ORDERED: cefTRIAXone 1GM/50ML D5W 50 ML IV ONE (13:30)
[2022-06-16] MEDS ORDERED: ALBUTEROL SULF 2.5 MG/0.5ML(0.5%) NEB SOLN NEB PRN (15:45)
[2022-06-16] MEDS ORDERED: IPRATROPIUM BROM 0.5 MG/2.5ML INH SOL NEB PRN (15:45)
[2022-06-16] MEDS: BUMETANIDE 1mg/4ml VIAL (0.25mg/ml) IV SCH (18:00)
[2022-06-16] MEDS: LATANOPROST 0.005 % OPTH(EYE) SOL 2.5ML EACHEYE SCH (18:25)
[2022-06-16] MEDS ORDERED: ENOXAPARIN SOD 100 MG/1 ML SYRINGE SC SCH (21:00)
[2022-06-16] MEDS ORDERED: EPOETIN ALFA-EPBX 10,000 UNIT/1ML VIAL SC ONE (21:00)
[2022-06-16] MEDS ORDERED: LORazepam 2MG/ML-1ML VIAL IV PRN (23:30)
[2022-06-17] VITALS (50 sets, daily range): BP systolic 120–169; BP diastolic 51–86
[2022-06-17] MEDS: InsuLIN REG 1unit/0.01ml Soln (100units/ml) SC SCH ×5 (00:50→23:46)
[2022-06-17] MEDS: TIMOLOL EACHEYE SCH ×3 (02:08→22:02)
[2022-06-17] MEDS: SODIUM CHLOR 0.9% PF (SALINE LOCK) 10ML VIAL/SYR IV SCH ×3 (02:08→22:02)
[2022-06-17] MEDS: DORZOLAMIDE EACHEYE SCH ×3 (02:08→22:02)
[2022-06-17] MEDS: VORICONAZOLE 50 MG TAB PO SCH ×3 (02:08→22:01)
[2022-06-17] MEDS: FREE WATER GT SCH ×7 (02:13→22:02)
[2022-06-17] MEDS: PANTOPRAZOLE 40 MG/10 ML VIAL INJ IV SCH ×3 (02:13→22:01)
[2022-06-17] MEDS: METOPROLOL TARTRATE 25 MG TAB PO SCH ×3 (02:14→22:01)
[2022-06-17] MEDS: SUCRALFATE 1 GM/10 ML ORAL SUSP GT SCH ×3 (06:27→18:00)
[2022-06-17] MEDS: ACCU-CHEK COMFORT CURVE STRIP VI SCH ×5 (06:27→23:46)
[2022-06-17] MEDS: BUMETANIDE 1mg/4ml VIAL (0.25mg/ml) IV SCH ×2 (06:29→18:01)
[2022-06-17 06:33] LABS: Hematocrit 31.8 % (36.0-46.0); Hemoglobin 10.2 g/dL (12.2-16.2); Mean Corpuscular Hemoglobin 31.1 pg (28.0-32.0); Mean Corpuscular Volume 97.2 fL (80.0-100.0); Red Blood Cells 3.28 10^6/uL (4.0-5.20); Red Cell Distribution Width 17.6 % (11.8-14.3); White Blood Cell 24.3 10^3/uL (4.4-10.8)
[2022-06-17 06:39] LABS: Basophils % (manual) 0 (0.0-2.0); Blast Cells 0; Metamyelocytes % 0; Promyelocytes % 0; Reactive Lymphocytes 0
[2022-06-17 06:55] LABS: Potassium 3.5 mmol/L (3.5-5.1)
[2022-06-17 07:04] LABS: BUN/Creatinine Ratio 12.3
[2022-06-17 07:05] LABS: Bilirubin, Total 0.4 mg/dL (0.2-1.0); Total Protein 6.2 g/dL (6.4-8.2)
[2022-06-17 08:19] LABS: Band Neutrophils % (manual) 16; Eosinophils % (manual) 1 (0-7); Lymphocytes % (manual) 28 (10.0-50.0); Monocytes % (manual) 7 (0-12); Myelocytes % 1
[2022-06-17] MEDS: cefTRIAXone 1GM/50ML D5W 50 ML IV SCH (08:36)
[2022-06-17] MEDS: amLODIPine BESYLATE 5 MG TAB GT SCH (09:50)
[2022-06-17] MEDS: TRIAMCINOLONE ACET 0.1% TOPICAL CREAM 15GM TOP SCH (09:54)
[2022-06-17] MEDS: LATANOPROST 0.005 % OPTH(EYE) SOL 2.5ML EACHEYE SCH (18:01)
[2022-06-17] MEDS: ENOXAPARIN SOD 60 MG/0.6 ML SYRINGE SC SCH (22:01)
[2022-06-18] VITALS (31 sets, daily range): BP systolic 118–158; BP diastolic 51–128
[2022-06-18] MEDS: FREE WATER GT SCH ×6 (02:32→23:03)
[2022-06-18] MEDS: InsuLIN REG 1unit/0.01ml Soln (100units/ml) SC SCH ×3 (06:00→18:00)
[2022-06-18] MEDS: SUCRALFATE 1 GM/10 ML ORAL SUSP GT SCH ×3 (07:09→16:45)
[2022-06-18] MEDS: ACCU-CHEK COMFORT CURVE STRIP VI SCH ×3 (07:09→18:10)
[2022-06-18] MEDS: BUMETANIDE 1mg/4ml VIAL (0.25mg/ml) IV SCH ×2 (07:10→18:10)
[2022-06-18] MEDS: cefTRIAXone 1GM/50ML D5W 50 ML IV SCH (12:09)
[2022-06-18] MEDS: TIMOLOL EACHEYE SCH ×2 (12:09→23:03)
[2022-06-18] MEDS: DORZOLAMIDE EACHEYE SCH ×2 (12:09→23:03)
[2022-06-18] MEDS: METOPROLOL TARTRATE 25 MG TAB PO SCH ×2 (12:11→23:04)
[2022-06-18] MEDS: SODIUM CHLOR 0.9% PF (SALINE LOCK) 10ML VIAL/SYR IV SCH ×2 (12:11→23:04)
[2022-06-18] MEDS: amLODIPine BESYLATE 5 MG TAB GT SCH (12:11)
[2022-06-18] MEDS: PANTOPRAZOLE 40 MG/10 ML VIAL INJ IV SCH ×2 (12:11→23:04)
[2022-06-18] MEDS: TRIAMCINOLONE ACET 0.1% TOPICAL CREAM 15GM TOP SCH (12:12)
[2022-06-18] MEDS: VORICONAZOLE 50 MG TAB PO SCH ×2 (12:12→23:04)
[2022-06-18] MEDS ORDERED: LORazepam 2MG/ML-1ML VIAL IV PRN (16:15)
[2022-06-18] MEDS: LATANOPROST 0.005 % OPTH(EYE) SOL 2.5ML EACHEYE SCH (16:46)
[2022-06-18] MEDS: MEROPENEM 500MG IVPB 50 ML IV SCH (23:03)
[2022-06-18] MEDS: ENOXAPARIN SOD 60 MG/0.6 ML SYRINGE SC SCH (23:03)
[2022-06-19] VITALS (34 sets, daily range): BP systolic 117–161; BP diastolic 52–75
[2022-06-19] MEDS: ACCU-CHEK COMFORT CURVE STRIP VI SCH ×4 (00:31→18:00)
[2022-06-19] MEDS: FREE WATER GT SCH ×6 (02:00→21:19)
[2022-06-19 05:06] LABS: Hemoglobin 9.4 g/dL (12.2-16.2); Mean Corpuscular Hemoglobin 30.1 pg (28.0-32.0); Mean Corpuscular Hgb Conc. 31.3 g/dL (32.0-36.0); Mean Corpuscular Volume 96.1 fL (80.0-100.0); Red Blood Cells 3.12 10^6/uL (4.0-5.20); Red Cell Distribution Width 18.1 % (11.8-14.3); White Blood Cell 27.2 10^3/uL (4.4-10.8)
[2022-06-19 05:08] LABS: Basophils % (manual) 0 (0.0-2.0); Blast Cells 0; Eosinophils % (manual) 0 (0-7); Metamyelocytes % 0; Myelocytes % 0; Promyelocytes % 0; Reactive Lymphocytes 0
[2022-06-19 05:15] LABS: Albumin 1.8 g/dL (3.4-5.0); Calcium 7.6 mg/dL (8.5-10.1)
[2022-06-19 05:25] LABS: Phosphorus 0.9 mg/dL (2.5-4.90); Potassium 2.7 mmol/L (3.5-5.1)
[2022-06-19] MEDS: BUMETANIDE 1mg/4ml VIAL (0.25mg/ml) IV SCH ×2 (05:46→17:47)
[2022-06-19] MEDS: SUCRALFATE 1 GM/10 ML ORAL SUSP GT SCH ×3 (06:00→17:47)
[2022-06-19] MEDS ORDERED: POTASSIUM CHL 20 Meq TABLET PO ONE (06:15)
[2022-06-19] MEDS ORDERED: ALBUTEROL MEDNEB 2.5 mg/3ml NEB NEB PRN (06:45)
[2022-06-19] MEDS: InsuLIN REG 1unit/0.01ml Soln (100units/ml) SC SCH ×4 (07:39→18:00)
[2022-06-19] MEDS ORDERED: POTASSIUM PHOSPHATE 17.6 MEQ in SODIUM CHL 0.9% 100 ML IV ONE (08:30)
[2022-06-19] MEDS: TRIAMCINOLONE ACET 0.1% TOPICAL CREAM 15GM TOP SCH (10:00)
[2022-06-19] MEDS: SODIUM CHLOR 0.9% PF (SALINE LOCK) 10ML VIAL/SYR IV SCH ×2 (10:00→21:20)
[2022-06-19] MEDS: DORZOLAMIDE EACHEYE SCH ×2 (10:00→21:19)
[2022-06-19] MEDS: METOPROLOL TARTRATE 25 MG TAB PO SCH ×2 (10:00→22:23)
[2022-06-19] MEDS: amLODIPine BESYLATE 5 MG TAB GT SCH (10:00)
[2022-06-19] MEDS: MEROPENEM 500MG IVPB 50 ML IV SCH (10:00)
[2022-06-19] MEDS: TIMOLOL EACHEYE SCH ×2 (10:00→21:19)
[2022-06-19] MEDS: PANTOPRAZOLE 40 MG/10 ML VIAL INJ IV SCH ×2 (10:00→21:20)
[2022-06-19] MEDS: VORICONAZOLE 50 MG TAB PO SCH ×2 (10:00→22:23)
[2022-06-19] MEDS: CHOLESTYRAMINE 4 GM POWDER GT SCH (11:00)
[2022-06-19] MEDS ORDERED: POTASSIUM EFFERVESENT TAB 25 MEQ GT ONE (11:00)
[2022-06-19 13:54] LABS: Band Neutrophils % (manual) 6; Lymphocytes % (manual) 22 (10.0-50.0); Monocytes % (manual) 6 (0-12)
[2022-06-19 17:02] LABS: Anion Gap 12 (5-15); BUN/Creatinine Ratio 14.4; Blood Urea Nitrogen 33 mg/dL (7-18); Carbon Dioxide 26 mmol/L (21-32); Chloride 108 mmol/L (98-107); GFR African American 26 mL/min; GFR Non-African American 22 mL/min; Glucose 137 mg/dL (74-106); Sodium 146 mmol/L (136-145)
[2022-06-19 17:03] LABS: Alanine Aminotransferase 9 U/L (13-56); Albumin 1.8 g/dL (3.4-5.0); Alkaline Phosphatase 280 U/L (45-117); Aspartate Aminotransferase 25 U/L (15-37); Bilirubin, Total 0.4 mg/dL (0.2-1.0); Calcium 7.4 mg/dL (8.5-10.1); Phosphorus 1.1 mg/dL (2.5-4.90); Total Protein 5.1 g/dL (6.4-8.2)
[2022-06-19] MEDS: LATANOPROST 0.005 % OPTH(EYE) SOL 2.5ML EACHEYE SCH (17:47)
[2022-06-19] MEDS: CEFEPIME 2 GM in SODIUM CHL 0.9% 50 ML IV SCH (20:59)
[2022-06-19] MEDS: ENOXAPARIN SOD 60 MG/0.6 ML SYRINGE SC SCH (21:19)
[2022-06-20] VITALS (36 sets, daily range): BP systolic 117–156; BP diastolic 49–89
[2022-06-20] MEDS: FREE WATER GT SCH ×6 (02:00→23:47)
[2022-06-20] MEDS: ACCU-CHEK COMFORT CURVE STRIP VI SCH ×4 (05:17→18:03)
[2022-06-20] MEDS: BUMETANIDE 1mg/4ml VIAL (0.25mg/ml) IV SCH (05:56)
[2022-06-20] MEDS: SUCRALFATE 1 GM/10 ML ORAL SUSP GT SCH ×3 (05:56→16:11)
[2022-06-20] MEDS: InsuLIN REG 1unit/0.01ml Soln (100units/ml) SC SCH ×4 (05:57→18:00)
[2022-06-20 06:09] LABS: % Iron Saturation 50.5 % (15-50); BUN/Creatinine Ratio 14.2; Calcium 7.9 mg/dL (8.5-10.1); Potassium 3.5 mmol/L (3.5-5.1)
[2022-06-20] MEDS ORDERED: SODIUM CHL 0.9% 1000 ML BAG XX ONE (07:00)
[2022-06-20] MEDS: VORICONAZOLE 50 MG TAB PO SCH ×2 (10:00→17:48)
[2022-06-20] MEDS: METOPROLOL TARTRATE 25 MG TAB PO SCH ×2 (11:06→23:47)
[2022-06-20] MEDS: PANTOPRAZOLE 40 MG/10 ML VIAL INJ IV SCH ×2 (11:07→23:47)
[2022-06-20] MEDS: amLODIPine BESYLATE 5 MG TAB GT SCH (11:07)
[2022-06-20] MEDS: CHOLESTYRAMINE 4 GM POWDER GT SCH (11:09)
[2022-06-20] MEDS: SODIUM CHLOR 0.9% PF (SALINE LOCK) 10ML VIAL/SYR IV SCH ×2 (11:10→23:47)
[2022-06-20] MEDS ORDERED: FUROSEMIDE 100 MG/10ML VIAL IV ONE (11:45)
[2022-06-20] MEDS: DORZOLAMIDE EACHEYE SCH ×2 (12:08→23:47)
[2022-06-20] MEDS: TIMOLOL EACHEYE SCH ×2 (12:08→23:47)
[2022-06-20] MEDS: TRIAMCINOLONE ACET 0.1% TOPICAL CREAM 15GM TOP SCH (12:09)
[2022-06-20] MEDS ORDERED: POTASSIUM PHOSPHATE 44 MEQ in D5W 5% 250 ML IV ONE (12:15)
[2022-06-20] MEDS: LATANOPROST 0.005 % OPTH(EYE) SOL 2.5ML EACHEYE SCH (17:33)
[2022-06-20] MEDS: BUMETANIDE 2.5mg/10ml (0.25 mg/ml) INJ IV SCH ×2 (18:38→23:47)
[2022-06-20] MEDS: CEFEPIME 2 GM in SODIUM CHL 0.9% 50 ML IV SCH (20:09)
[2022-06-20] MEDS: ENOXAPARIN SOD 60 MG/0.6 ML SYRINGE SC SCH (20:09)
[2022-06-20] MEDS ORDERED: EPOETIN ALFA-EPBX 10,000 UNIT/1ML VIAL SC ONE (21:00)
[2022-06-21] VITALS (35 sets, daily range): BP systolic 89–151; BP diastolic 56–87
[2022-06-21] MEDS: ACCU-CHEK COMFORT CURVE STRIP VI SCH ×4 (00:09→17:53)
[2022-06-21] MEDS: InsuLIN REG 1unit/0.01ml Soln (100units/ml) SC SCH ×4 (00:10→17:52)
[2022-06-21] MEDS: FREE WATER GT SCH ×6 (01:42→22:35)
[2022-06-21 04:57] LABS: Hemoglobin 9.1 g/dL (12.2-16.2); Mean Corpuscular Hemoglobin 30.9 pg (28.0-32.0); Mean Corpuscular Hgb Conc. 31.3 g/dL (32.0-36.0); Mean Corpuscular Volume 98.8 fL (80.0-100.0); Red Blood Cells 2.94 10^6/uL (4.0-5.20); Red Cell Distribution Width 18.7 % (11.8-14.3); White Blood Cell 20.8 10^3/uL (4.4-10.8)
[2022-06-21 05:12] LABS: Band Neutrophils % (manual) 0; Basophils % (manual) 0 (0.0-2.0); Blast Cells 0; Metamyelocytes % 0; Myelocytes % 0; Promyelocytes % 0; Reactive Lymphocytes 0
[2022-06-21 05:13] LABS: Calcium 7.9 mg/dL (8.5-10.1)
[2022-06-21] MEDS: VORICONAZOLE 50 MG TAB PO SCH ×2 (06:42→17:51)
[2022-06-21] MEDS: SUCRALFATE 1 GM/10 ML ORAL SUSP GT SCH ×3 (06:43→17:49)
[2022-06-21] MEDS ORDERED: POTASSIUM CHL 20MEQ/100ML 100 ML IV ONE (07:00)
[2022-06-21 08:07] LABS: Eosinophils % (manual) 4 (0-7); Lymphocytes % (manual) 27 (10.0-50.0); Monocytes % (manual) 9 (0-12)
[2022-06-21] MEDS ORDERED: POTASSIUM EFFERVESENT TAB 25 MEQ GT ONE (10:45)
[2022-06-21] MEDS: CHOLESTYRAMINE 4 GM POWDER GT SCH (11:17)
[2022-06-21] MEDS: METOPROLOL TARTRATE 25 MG TAB PO SCH ×2 (11:19→22:35)
[2022-06-21] MEDS: BUMETANIDE 2.5mg/10ml (0.25 mg/ml) INJ IV SCH ×2 (11:20→22:35)
[2022-06-21] MEDS: amLODIPine BESYLATE 5 MG TAB GT SCH (11:20)
[2022-06-21] MEDS: SODIUM CHLOR 0.9% PF (SALINE LOCK) 10ML VIAL/SYR IV SCH ×2 (11:21→22:35)
[2022-06-21] MEDS: TIMOLOL EACHEYE SCH ×2 (11:22→22:35)
[2022-06-21] MEDS: DORZOLAMIDE EACHEYE SCH ×2 (11:22→22:35)
[2022-06-21] MEDS: PANTOPRAZOLE 40 MG/10 ML VIAL INJ IV SCH ×2 (11:25→22:35)
[2022-06-21] MEDS: TRIAMCINOLONE ACET 0.1% TOPICAL CREAM 15GM TOP SCH (11:27)
[2022-06-21] MEDS: LATANOPROST 0.005 % OPTH(EYE) SOL 2.5ML EACHEYE SCH (17:50)
[2022-06-21] MEDS: CEFEPIME 2 GM in SODIUM CHL 0.9% 50 ML IV SCH (20:07)
[2022-06-21] MEDS: ENOXAPARIN SOD 60 MG/0.6 ML SYRINGE SC SCH (20:07)
[2022-06-22] VITALS (33 sets, daily range): BP systolic 114–157; BP diastolic 29–100
[2022-06-22] MEDS: ACCU-CHEK COMFORT CURVE STRIP VI SCH ×4 (00:01→17:47)
[2022-06-22] MEDS: InsuLIN REG 1unit/0.01ml Soln (100units/ml) SC SCH ×4 (00:05→17:47)
[2022-06-22] MEDS: FREE WATER GT SCH ×6 (04:49→21:04)
[2022-06-22] MEDS: VORICONAZOLE 50 MG TAB PO SCH ×2 (05:49→18:02)
[2022-06-22 05:53] LABS: Hemoglobin 9.1 g/dL (12.2-16.2)
[2022-06-22 05:56] LABS: Hematocrit 26.2 % (36.0-46.0); Mean Corpuscular Hemoglobin 36.4 pg (28.0-32.0); Mean Corpuscular Hgb Conc. 34.5 g/dL (32.0-36.0); Mean Corpuscular Volume 105.5 fL (80.0-100.0); Red Blood Cells 2.49 10^6/uL (4.0-5.20); Red Cell Distribution Width 18.3 % (11.8-14.3)
[2022-06-22 06:03] LABS: Basophils % (manual) 0 (0.0-2.0); Blast Cells 0; Metamyelocytes % 0; Myelocytes % 0; Promyelocytes % 0; Reactive Lymphocytes 0
[2022-06-22 06:08] LABS: INR 1.09 (0.9-1.15); Partial Thromboplastin Time 37.4 sec (24.6-33.4)
[2022-06-22 06:15] LABS: Potassium 3.6 mmol/L (3.5-5.1)
[2022-06-22 06:21] LABS: Albumin 1.7 g/dL (3.4-5.0); BUN/Creatinine Ratio 18.8; Bilirubin, Total 0.3 mg/dL (0.2-1.0); Calcium 7.1 mg/dL (8.5-10.1); Total Protein 5.6 g/dL (6.4-8.2)
[2022-06-22] MEDS ORDERED: SODIUM CHL 0.9% 1000 ML BAG XX ONE (07:00)
[2022-06-22] MEDS ORDERED: ALBUMIN 25% 100 ML IV PRN (07:15)
[2022-06-22 07:42] LABS: Band Neutrophils % (manual) 8; Eosinophils % (manual) 2 (0-7); Lymphocytes % (manual) 33 (10.0-50.0); Monocytes % (manual) 8 (0-12)
[2022-06-22] MEDS: PANTOPRAZOLE 40 MG/10 ML VIAL INJ IV SCH ×2 (10:23→21:05)
[2022-06-22] MEDS: BUMETANIDE 2.5mg/10ml (0.25 mg/ml) INJ IV SCH ×2 (10:23→21:05)
[2022-06-22] MEDS: SODIUM CHLOR 0.9% PF (SALINE LOCK) 10ML VIAL/SYR IV SCH ×2 (10:23→21:05)
[2022-06-22] MEDS: METOPROLOL TARTRATE 25 MG TAB PO SCH ×2 (10:24→21:06)
[2022-06-22] MEDS: DORZOLAMIDE EACHEYE SCH ×2 (10:26→21:04)
[2022-06-22] MEDS: amLODIPine BESYLATE 5 MG TAB GT SCH (10:26)
[2022-06-22] MEDS: TIMOLOL EACHEYE SCH ×2 (10:26→21:04)
[2022-06-22] MEDS: TRIAMCINOLONE ACET 0.1% TOPICAL CREAM 15GM TOP SCH (10:27)
[2022-06-22] MEDS: SUCRALFATE 1 GM/10 ML ORAL SUSP GT SCH ×3 (11:28→16:39)
[2022-06-22] MEDS: CHOLESTYRAMINE 4 GM POWDER GT SCH (13:20)
[2022-06-22] MEDS: ENOXAPARIN SOD 60 MG/0.6 ML SYRINGE SC SCH (17:47)
[2022-06-22] MEDS: LATANOPROST 0.005 % OPTH(EYE) SOL 2.5ML EACHEYE SCH (17:48)
[2022-06-22] MEDS ORDERED: EPOETIN ALFA-EPBX 10,000 UNIT/1ML VIAL SC ONE (21:00)
[2022-06-22] MEDS: CEFEPIME 2 GM in SODIUM CHL 0.9% 50 ML IV SCH (21:03)
[2022-06-23] VITALS (30 sets, daily range): BP systolic 92–145; BP diastolic 52–89
[2022-06-23] MEDS: ACCU-CHEK COMFORT CURVE STRIP VI SCH ×4 (00:20→17:44)
[2022-06-23] MEDS: InsuLIN REG 1unit/0.01ml Soln (100units/ml) SC SCH ×4 (00:21→18:22)
[2022-06-23] MEDS: FREE WATER GT SCH ×6 (02:00→22:16)
[2022-06-23 04:50] LABS: Hematocrit 28.8 % (36.0-46.0); Hemoglobin 9.1 g/dL (12.2-16.2); Mean Corpuscular Hemoglobin 30.9 pg (28.0-32.0); Mean Corpuscular Hgb Conc. 31.7 g/dL (32.0-36.0); Mean Corpuscular Volume 97.6 fL (80.0-100.0); Red Blood Cells 2.95 10^6/uL (4.0-5.20); Red Cell Distribution Width 18.2 % (11.8-14.3); White Blood Cell 24.3 10^3/uL (4.4-10.8)
[2022-06-23 04:55] LABS: Basophils % (manual) 0 (0.0-2.0); Blast Cells 0; Metamyelocytes % 0; Myelocytes % 0; Promyelocytes % 0; Reactive Lymphocytes 0
[2022-06-23 05:09] LABS: Albumin 1.8 g/dL (3.4-5.0); Calcium 7.1 mg/dL (8.5-10.1); Potassium 3.3 mmol/L (3.5-5.1)
[2022-06-23 05:12] LABS: Bilirubin, Total 0.3 mg/dL (0.2-1.0); Total Protein 5.2 g/dL (6.4-8.2)
[2022-06-23] MEDS: SUCRALFATE 1 GM/10 ML ORAL SUSP GT SCH ×3 (06:27→17:00)
[2022-06-23] MEDS: VORICONAZOLE 50 MG TAB PO SCH ×2 (06:27→18:26)
[2022-06-23 07:32] LABS: Band Neutrophils % (manual) 8; Eosinophils % (manual) 2 (0-7); Lymphocytes % (manual) 21 (10.0-50.0); Monocytes % (manual) 11 (0-12)
[2022-06-23] MEDS ORDERED: LIDOCAINE 2%HCL (LOCAL ANESTH.) INJ 20ML MDV ONE (09:41)
[2022-06-23] MEDS ORDERED: fentaNYL CITRATE 100 MCG/2 ML VL ONE (10:07)
[2022-06-23] MEDS ORDERED: MIDAZOLAM HCL 2MG/2ML 2ml VIAL (1mg/ml) ONE (10:07)
[2022-06-23] MEDS ORDERED: HEPARIN SODIUM (PORCINE) 5000 UNITS/ML 1ML VIAL ONE (10:38)
[2022-06-23] MEDS ORDERED: diphenhdrAMINE HCL 50 MG/1 ML VL ONE (10:41)
[2022-06-23] MEDS: CHOLESTYRAMINE 4 GM POWDER GT SCH (11:00)
[2022-06-23] MEDS: FLORASTOR (S. BOULARDII) 250 MG CAP PO SCH (11:21)
[2022-06-23] MEDS: METOPROLOL TARTRATE 25 MG TAB PO SCH ×2 (11:21→22:15)
[2022-06-23] MEDS: PANTOPRAZOLE 40 MG/10 ML VIAL INJ IV SCH ×2 (11:22→22:14)
[2022-06-23] MEDS: BUMETANIDE 2.5mg/10ml (0.25 mg/ml) INJ IV SCH ×2 (11:22→22:14)
[2022-06-23] MEDS: SODIUM CHLOR 0.9% PF (SALINE LOCK) 10ML VIAL/SYR IV SCH ×2 (11:22→22:15)
[2022-06-23] MEDS: TRIAMCINOLONE ACET 0.1% TOPICAL CREAM 15GM TOP SCH (11:22)
[2022-06-23] MEDS: amLODIPine BESYLATE 5 MG TAB GT SCH (11:22)
[2022-06-23] MEDS: DORZOLAMIDE EACHEYE SCH ×2 (11:23→22:00)
[2022-06-23] MEDS: TIMOLOL EACHEYE SCH ×2 (11:23→22:00)
[2022-06-23] MEDS: ENOXAPARIN SOD 60 MG/0.6 ML SYRINGE SC SCH (17:44)
[2022-06-23] MEDS: LATANOPROST 0.005 % OPTH(EYE) SOL 2.5ML EACHEYE SCH (17:44)
[2022-06-23] MEDS: CEFEPIME 2 GM in SODIUM CHL 0.9% 50 ML IV SCH (22:16)
[2022-06-23] MEDS: diphenhdrAMINE HCL 50 MG/1 ML VL IV PRN (23:10)
[2022-06-24] VITALS (34 sets, daily range): BP systolic 98–152; BP diastolic 51–81
[2022-06-24] MEDS: FREE WATER GT SCH ×6 (02:00→22:11)
[2022-06-24] MEDS: ACCU-CHEK COMFORT CURVE STRIP VI SCH ×4 (06:00→18:03)
[2022-06-24] MEDS: InsuLIN REG 1unit/0.01ml Soln (100units/ml) SC SCH ×4 (06:00→18:00)
[2022-06-24] MEDS: SUCRALFATE 1 GM/10 ML ORAL SUSP GT SCH ×3 (07:00→18:06)
[2022-06-24] MEDS: TIMOLOL EACHEYE SCH ×2 (10:19→22:11)
[2022-06-24] MEDS: DORZOLAMIDE EACHEYE SCH ×2 (10:19→22:11)
[2022-06-24] MEDS: PANTOPRAZOLE 40 MG/10 ML VIAL INJ IV SCH ×2 (10:20→22:10)
[2022-06-24] MEDS: SODIUM CHLOR 0.9% PF (SALINE LOCK) 10ML VIAL/SYR IV SCH ×2 (10:20→22:11)
[2022-06-24] MEDS: amLODIPine BESYLATE 5 MG TAB GT SCH (10:20)
[2022-06-24] MEDS: BUMETANIDE 2.5mg/10ml (0.25 mg/ml) INJ IV SCH ×2 (10:20→22:11)
[2022-06-24] MEDS: FLORASTOR (S. BOULARDII) 250 MG CAP PO SCH (10:20)
[2022-06-24] MEDS: TRIAMCINOLONE ACET 0.1% TOPICAL CREAM 15GM TOP SCH (10:21)
[2022-06-24] MEDS: diphenhdrAMINE HCL 50 MG/1 ML VL IV PRN ×2 (10:43→22:10)
[2022-06-24] MEDS: CHOLESTYRAMINE 4 GM POWDER GT SCH (11:36)
[2022-06-24] MEDS: METOPROLOL TARTRATE 25 MG TAB PO SCH ×2 (13:07→22:00)
[2022-06-24] MEDS: POTASSIUM CHL 20MEQ/100ML 100 ML IV SCH ×2 (14:49→17:00)
[2022-06-24] MEDS: LATANOPROST 0.005 % OPTH(EYE) SOL 2.5ML EACHEYE SCH (18:02)
[2022-06-24] MEDS: ENOXAPARIN SOD 60 MG/0.6 ML SYRINGE SC SCH (18:06)
[2022-06-24] MEDS: CEFEPIME 2 GM in SODIUM CHL 0.9% 50 ML IV SCH (21:00)
[2022-06-25] VITALS (32 sets, daily range): BP systolic 94–165; BP diastolic 52–95
[2022-06-25] MEDS: FREE WATER GT SCH ×6 (02:00→22:00)
[2022-06-25] MEDS: InsuLIN REG 1unit/0.01ml Soln (100units/ml) SC SCH ×4 (06:00→18:02)
[2022-06-25] MEDS: ACCU-CHEK COMFORT CURVE STRIP VI SCH ×4 (06:00→18:03)
[2022-06-25] MEDS: SUCRALFATE 1 GM/10 ML ORAL SUSP GT SCH ×3 (07:00→17:18)
[2022-06-25] MEDS ORDERED: CEFEPIME 2 GM in SODIUM CHL 0.9% 50 ML IV ONE (08:30)
[2022-06-25 08:32] LABS: Hematocrit 27.6 % (36.0-46.0); Hemoglobin 8.9 g/dL (12.2-16.2); Mean Corpuscular Hemoglobin 35.1 pg (28.0-32.0); Mean Corpuscular Hgb Conc. 32.4 g/dL (32.0-36.0); Mean Corpuscular Volume 108.3 fL (80.0-100.0); Red Blood Cells 2.55 10^6/uL (4.0-5.20); Red Cell Distribution Width 19.5 % (11.8-14.3); White Blood Cell 21.9 10^3/uL (4.4-10.8)
[2022-06-25 08:42] LABS: Basophils % (manual) 0 (0.0-2.0); Blast Cells 0; Eosinophils % (manual) 0 (0-7); Myelocytes % 0; Promyelocytes % 0; Reactive Lymphocytes 0
[2022-06-25] MEDS: PANTOPRAZOLE 40 MG/10 ML VIAL INJ IV SCH ×2 (09:42→23:27)
[2022-06-25] MEDS: FLORASTOR (S. BOULARDII) 250 MG CAP PO SCH (09:43)
[2022-06-25] MEDS: SODIUM CHLOR 0.9% PF (SALINE LOCK) 10ML VIAL/SYR IV SCH ×2 (09:43→22:00)
[2022-06-25] MEDS: BUMETANIDE 2.5mg/10ml (0.25 mg/ml) INJ IV SCH ×2 (09:43→23:27)
[2022-06-25] MEDS: TIMOLOL EACHEYE SCH ×2 (09:44→22:00)
[2022-06-25] MEDS: TRIAMCINOLONE ACET 0.1% TOPICAL CREAM 15GM TOP SCH (09:44)
[2022-06-25] MEDS: DORZOLAMIDE EACHEYE SCH ×2 (09:44→22:00)
[2022-06-25] MEDS: amLODIPine BESYLATE 5 MG TAB GT SCH (10:02)
[2022-06-25 11:18] LABS: BUN/Creatinine Ratio 17.3; Calcium 7.7 mg/dL (8.5-10.1); Potassium 4.3 mmol/L (3.5-5.1)
[2022-06-25 11:21] LABS: Band Neutrophils % (manual) 6; Lymphocytes % (manual) 25 (10.0-50.0); Metamyelocytes % 3; Monocytes % (manual) 10 (0-12)
[2022-06-25] MEDS: CHOLESTYRAMINE 4 GM POWDER GT SCH (11:38)
[2022-06-25] MEDS: diphenhdrAMINE HCL 50 MG/1 ML VL IV PRN ×2 (11:55→18:06)
[2022-06-25] MEDS: METOPROLOL TARTRATE 25 MG TAB PO SCH ×2 (14:41→23:28)
[2022-06-25] MEDS: hydrALAZINE HCL 20 MG/ML VL IV PRN (17:18)
[2022-06-25] MEDS: ENOXAPARIN SOD 60 MG/0.6 ML SYRINGE SC SCH (17:39)
[2022-06-25] MEDS: LATANOPROST 0.005 % OPTH(EYE) SOL 2.5ML EACHEYE SCH (17:40)
[2022-06-25] MEDS ORDERED: VANCOMYCIN PER PHARMACY 0 MG IV SCH (19:30)
[2022-06-25] MEDS ORDERED: VANCOMYCIN 1GM/250ML 250 ML IV ONE (20:00)
[2022-06-26] VITALS (21 sets, daily range): BP systolic 106–156; BP diastolic 54–68
[2022-06-26] MEDS: FREE WATER GT SCH ×4 (02:00→14:00)
[2022-06-26] MEDS ORDERED: SODIUM CHL 0.9% 1000 ML BAG XX ONE (02:15)
[2022-06-26 05:18] LABS: BUN/Creatinine Ratio 16.9; Calcium 8.4 mg/dL (8.5-10.1)
[2022-06-26 05:39] LABS: Potassium 2.8 mmol/L (3.5-5.1)
[2022-06-26 05:49] LABS: Hematocrit 30.8 % (36.0-46.0); Hemoglobin 9.5 g/dL (12.2-16.2); Mean Corpuscular Hemoglobin 29.3 pg (28.0-32.0); Mean Corpuscular Hgb Conc. 30.8 g/dL (32.0-36.0); Mean Corpuscular Volume 95.4 fL (80.0-100.0); Red Blood Cells 3.23 10^6/uL (4.0-5.20); Red Cell Distribution Width 19.2 % (11.8-14.3); White Blood Cell 28.3 10^3/uL (4.4-10.8)
[2022-06-26 05:50] LABS: Basophils % (manual) 0 (0.0-2.0); Blast Cells 0; Promyelocytes % 0; Reactive Lymphocytes 0
[2022-06-26] MEDS: ACCU-CHEK COMFORT CURVE STRIP VI SCH ×3 (06:00→12:03)
[2022-06-26] MEDS: InsuLIN REG 1unit/0.01ml Soln (100units/ml) SC SCH ×3 (06:00→12:04)
[2022-06-26] MEDS: SUCRALFATE 1 GM/10 ML ORAL SUSP GT SCH ×2 (07:00→12:02)
[2022-06-26 07:29] LABS: Band Neutrophils % (manual) 9; Eosinophils % (manual) 4 (0-7); Lymphocytes % (manual) 21 (10.0-50.0); Metamyelocytes % 2; Monocytes % (manual) 3 (0-12); Myelocytes % 4
[2022-06-26] MEDS ORDERED: CEFEPIME 2 GM in SODIUM CHL 0.9% 50 ML IV SCH (08:00)
[2022-06-26] MEDS ORDERED: VANCOMYCIN 1GM/250ML 250 ML IV ONE ×2 (09:00→14:00)
[2022-06-26] MEDS: diphenhdrAMINE HCL 50 MG/1 ML VL IV PRN (09:43)
[2022-06-26] MEDS: DORZOLAMIDE EACHEYE SCH (10:07)
[2022-06-26] MEDS: TIMOLOL EACHEYE SCH (10:07)
[2022-06-26] MEDS: BUMETANIDE 2.5mg/10ml (0.25 mg/ml) INJ IV SCH (10:08)
[2022-06-26] MEDS: SODIUM CHLOR 0.9% PF (SALINE LOCK) 10ML VIAL/SYR IV SCH (10:08)
[2022-06-26] MEDS: PANTOPRAZOLE 40 MG/10 ML VIAL INJ IV SCH (10:08)
[2022-06-26] MEDS: amLODIPine BESYLATE 5 MG TAB GT SCH (10:11)
[2022-06-26] MEDS: METOPROLOL TARTRATE 25 MG TAB PO SCH (10:12)
[2022-06-26] MEDS: FLORASTOR (S. BOULARDII) 250 MG CAP PO SCH (10:12)
[2022-06-26] MEDS: TRIAMCINOLONE ACET 0.1% TOPICAL CREAM 15GM TOP SCH (10:13)
[2022-06-26] MEDS ORDERED: POTASSIUM EFFERVESENT TAB 25 MEQ GT ONE (10:30)
[2022-06-26] MEDS: POTASSIUM CHL 20MEQ/100ML 100 ML IV SCH ×2 (12:00→12:03)
[2022-06-26] MEDS: CHOLESTYRAMINE 4 GM POWDER GT SCH (12:02)
[2022-06-26] MEDS ORDERED: EPOETIN ALFA-EPBX 10,000 UNIT/1ML VIAL SC ONE (21:00)
[2022-06-26] MEDS ORDERED: APIXABAN 2.5 MG TAB PO SCH (22:00)
== END 2022-06-26 17:50 | disposition short-term general hospital (02) | DRG 4 ==
LOC: EDBD 11:27 → ER 11:27 → OVERFLOW 18:45 → WEST WING 23:30 → TELE-WESTW 05-13 20:53 → DOU IN ICU 05-14 00:35 → ICU CENTRL 05-19 11:59 → DOU IN ICU 06-12 09:47
PROVIDERS: ADMIT Nurse Practitioner Family; ATTEND Nurse Practitioner Acute Care
PROC: 30233N1 Transfusion of Nonautologous Red Blood Cells into Peripheral Vein, Percutaneous Approach (ICD-10-PCS; 2022-05-13)
PROC: 5A0935A Assistance with Respiratory Ventilation, Less than 24 Consecutive Hours, High Flow/Velocity Cannula (ICD-10-PCS; 2022-05-13)
PROC: 5A0935A Assistance with Respiratory Ventilation, Less than 24 Consecutive Hours, High Flow/Velocity Cannula (ICD-10-PCS; 2022-05-14)
PROC: 5A0935A Assistance with Respiratory Ventilation, Less than 24 Consecutive Hours, High Flow/Velocity Cannula (ICD-10-PCS; 2022-05-15)
PROC: 5A0935A Assistance with Respiratory Ventilation, Less than 24 Consecutive Hours, High Flow/Velocity Cannula (ICD-10-PCS; 2022-05-18)
PROC: 5A0935A Assistance with Respiratory Ventilation, Less than 24 Consecutive Hours, High Flow/Velocity Cannula (ICD-10-PCS; 2022-05-19)
PROC: 0BH17EZ Insertion of Endotracheal Airway into Trachea, Via Natural or Artificial Opening (ICD-10-PCS; 2022-05-20)
PROC: 5A0935A Assistance with Respiratory Ventilation, Less than 24 Consecutive Hours, High Flow/Velocity Cannula (ICD-10-PCS; 2022-05-20)
PROC: 5A1935Z Respiratory Ventilation, Less than 24 Consecutive Hours (ICD-10-PCS; 2022-05-20)
PROC: 5A1955Z Respiratory Ventilation, Greater than 96 Consecutive Hours (ICD-10-PCS; 2022-05-21)
PROC: 02HV33Z Insertion of Infusion Device into Superior Vena Cava, Percutaneous Approach (ICD-10-PCS; 2022-05-21)
PROC: B548ZZA Ultrasonography of Superior Vena Cava, Guidance (ICD-10-PCS; 2022-05-21)
PROC: 5A0935A Assistance with Respiratory Ventilation, Less than 24 Consecutive Hours, High Flow/Velocity Cannula (ICD-10-PCS; 2022-05-21)
PROC: 5A1935Z Respiratory Ventilation, Less than 24 Consecutive Hours (ICD-10-PCS; 2022-05-21)
PROC: 5A1D70Z Performance of Urinary Filtration, Intermittent, Less than 6 Hours Per Day (ICD-10-PCS; 2022-05-23)
PROC: 5A1D70Z Performance of Urinary Filtration, Intermittent, Less than 6 Hours Per Day (ICD-10-PCS; 2022-05-25)
PROC: 30233R1 Transfusion of Nonautologous Platelets into Peripheral Vein, Percutaneous Approach (ICD-10-PCS; 2022-05-26)
PROC: 30233K1 Transfusion of Nonautologous Frozen Plasma into Peripheral Vein, Percutaneous Approach (ICD-10-PCS; 2022-05-27)
PROC: 5A1D70Z Performance of Urinary Filtration, Intermittent, Less than 6 Hours Per Day (ICD-10-PCS; 2022-05-30)
PROC: 5A1D70Z Performance of Urinary Filtration, Intermittent, Less than 6 Hours Per Day (ICD-10-PCS; 2022-06-01)
PROC: 5A1D70Z Performance of Urinary Filtration, Intermittent, Less than 6 Hours Per Day (ICD-10-PCS; 2022-06-02)
PROC: 0B110F4 Bypass Trachea to Cutaneous with Tracheostomy Device, Open Approach (ICD-10-PCS; principal; 2022-06-06 08:25)
PROC: 5A1D70Z Performance of Urinary Filtration, Intermittent, Less than 6 Hours Per Day (ICD-10-PCS; 2022-06-08)
PROC: 0DH63UZ Insertion of Feeding Device into Stomach, Percutaneous Approach (ICD-10-PCS; 2022-06-09)
PROC: 0DH63UZ Insertion of Feeding Device into Stomach, Percutaneous Approach (ICD-10-PCS; 2022-06-09)
PROC: 02HV33Z Insertion of Infusion Device into Superior Vena Cava, Percutaneous Approach (ICD-10-PCS; 2022-06-12)
PROC: B5181ZA Fluoroscopy of Superior Vena Cava using Low Osmolar Contrast, Guidance (ICD-10-PCS; 2022-06-12)
PROC: B548ZZA Ultrasonography of Superior Vena Cava, Guidance (ICD-10-PCS; 2022-06-12)
PROC: 5A1D70Z Performance of Urinary Filtration, Intermittent, Less than 6 Hours Per Day (ICD-10-PCS; 2022-06-12)
PROC: 5A1D70Z Performance of Urinary Filtration, Intermittent, Less than 6 Hours Per Day (ICD-10-PCS; 2022-06-14)
PROC: 5A1D70Z Performance of Urinary Filtration, Intermittent, Less than 6 Hours Per Day (ICD-10-PCS; 2022-06-16)
PROC: 5A1D70Z Performance of Urinary Filtration, Intermittent, Less than 6 Hours Per Day (ICD-10-PCS; 2022-06-22)
PROC: 0JH63XZ Insertion of Tunneled Vascular Access Device into Chest Subcutaneous Tissue and Fascia, Percutaneous Approach (ICD-10-PCS; 2022-06-23)
PROC: 02HV33Z Insertion of Infusion Device into Superior Vena Cava, Percutaneous Approach (ICD-10-PCS; 2022-06-23)
PROC: B5181ZA Fluoroscopy of Superior Vena Cava using Low Osmolar Contrast, Guidance (ICD-10-PCS; 2022-06-23)
PROC: B548ZZA Ultrasonography of Superior Vena Cava, Guidance (ICD-10-PCS; 2022-06-23)
PROC: 5A1D70Z Performance of Urinary Filtration, Intermittent, Less than 6 Hours Per Day (ICD-10-PCS; 2022-06-26)
DX: A41.2 Sepsis due to unspecified staphylococcus (principal); J12.82 Pneumonia due to coronavirus disease 2019; N17.0 Acute kidney failure with tubular necrosis; G93.41 Metabolic encephalopathy; U07.1 COVID-19; J96.01 Acute respiratory failure with hypoxia; J15.9 Unspecified bacterial pneumonia; I82.402 Acute embolism and thrombosis of unspecified deep veins of left lower extremity; I82.C12 Acute embolism and thrombosis of left internal jugular vein; E46 Unspecified protein-calorie malnutrition; C91.10 Chronic lymphocytic leukemia of B-cell type not having achieved remission; J98.11 Atelectasis; N39.0 Urinary tract infection, site not specified; E87.0 Hyperosmolality and hypernatremia; G93.1 Anoxic brain damage, not elsewhere classified; K92.2 Gastrointestinal hemorrhage, unspecified; Z99.11 Dependence on respirator [ventilator] status; B49 Unspecified mycosis; I82.432 Acute embolism and thrombosis of left popliteal vein; R65.20 Severe sepsis without septic shock; E78.5 Hyperlipidemia, unspecified; E87.5 Hyperkalemia; D50.9 Iron deficiency anemia, unspecified; I16.0 Hypertensive urgency; D69.6 Thrombocytopenia, unspecified; E55.9 Vitamin D deficiency, unspecified; N18.30 Chronic kidney disease, stage 3 unspecified; E86.0 Dehydration; E87.6 Hypokalemia; Z74.01 Bed confinement status; B96.5 Pseudomonas (aeruginosa) (mallei) (pseudomallei) as the cause of diseases classified elsewhere; E11.22 Type 2 diabetes mellitus with diabetic chronic kidney disease; R31.9 Hematuria, unspecified; I12.9 Hypertensive chronic kidney disease with stage 1 through stage 4 chronic kidney disease, or unspecified chronic kidney disease; Z79.899 Other long term (current) drug therapy; Z82.49 Family history of ischemic heart disease and other diseases of the circulatory system; Z83.3 Family history of diabetes mellitus; Z86.718 Personal history of other venous thrombosis and embolism; Z86.73 Personal history of transient ischemic attack (TIA), and cerebral infarction without residual deficits; Z90.710 Acquired absence of both cervix and uterus; Z79.01 Long term (current) use of anticoagulants; Z79.4 Long term (current) use of insulin; Z79.82 Long term (current) use of aspirin; Z91.041 Radiographic dye allergy status
CPT/HCPCS: 36415; 36558; 36600; 43246; 70450; 71045; 73200; 73700; 76536; 76700; 76705; 76775; 76942; 77001; 80048; 80053; 80061; 80069; 80074; 80076; 80202; 81001; 82140; 82270; 82306; 82570; 82728; 82746; 82805; 82962; 83540; 83550; 83605; 83735; 83880; 83970; 84100; 84156; 84300; 84443; 84478; 85007; 85014; 85018; 85025; 85027; 85362; 85379; 85384; 85610; 85652; 85730; 86141; 86850; 86900; 86901; 86920; 87040; 87070; 87077; 87081; 87086; 87088; 87186; 87205; 87426; 87493; 90935; 93005; 93886; 93970; 93971; 94003; 94640; 95819; 96360; 97110; 97116; 97163; 97530; 99152; A4605; C1752; C9113; G0378; J0690; J0696; J1100; J1642; J1815; J1956; J2001; J2185; J2248; J2250; J3465; J3480; J3490; J7060; J7131; P9047